=== PATIENT | male | born 1945 | race Caucasian/White ===

== ENCOUNTER 2020-09-12 01:07 | Outpatient (CLI) | payer MEDICARE, SELFPAY ==
[2020-09-13 17:16] LABS: SARS-CoV-2 RNA PCR Negative
== END 2020-09-12 01:08 | disposition home or self-care (01) ==
LOC: ANHCOVIDDT 01:07
PROVIDERS: PCP Family Medicine; Visit Provider Internal Medicine Gastroenterology
DX: Z01.812 Encounter for preprocedural laboratory examination (principal); Z20.822 Contact with and (suspected) exposure to COVID-19
CPT/HCPCS: C9803; U0003; U0005

== ENCOUNTER 2020-09-15 01:22 | Day surgery (SDC) | payer MEDICARE, SELFPAY ==
[2020-09-08 09:54] VITALS: BMI 26.5
[2020-09-15 06:24] VITALS: BP 128/68; PULSE 87; RESP 16; TEMP 36.9; O2SAT 98; BMI 25.3
[2020-09-15] MEDS: LACTATED RINGERS 1,000 ML 150 ML IV CONT (06:43)
--- NOTE | 2020-09-15 07:16 | WPDANESEPPF ---
Anes - Initial Pre Proc Eval Procedure: Operation Date: 09/15/20 07:30 Proposed Procedures p Screening Colonoscopy - Billy Pimentel MD Date/Time: 09/15/20 07:16 Surgeon: Billy Pimentel MD Pre Op Diagnosis: Personal Hx. Of Polyps, Family Hx. Of Colon CA Patient Data Age: 74 Gender: M Height: 1.78 m Weight: 80.2 kg Last Vital Signs Temp 36.9 C 09/15/20 06:24 Pulse 87 09/15/20 06:24 Resp 16 09/15/20 06:24 BP 128/68 09/15/20 06:24 Pulse Ox 98 09/15/20 06:24 Allergies Allergy/AdvReac Type Severity Reaction Status Date / Time hydrocodone Allergy Unknown Confusion Verified 09/15/20 06:22 meperidine Allergy Unknown Nausea Verified 09/15/20 06:22 promethazine Allergy Unknown Confusion Verified 09/15/20 06:22 Bumble Bee Allergy Severe SEVERE Uncoded 09/15/20 06:22 SWELLING Home Medications Medication Instructions Recorded Confirmed Type aspirin 81 mg tablet,delayed 81 mg PO DAILY 08/12/19 09/08/20 History release lamotrigine 200 mg tablet 200 mg PO DAILY 08/12/19 09/08/20 History polyethylene glycol 3350 17 gram 17 gm PO DAILY 08/12/19 09/08/20 History oral powder packet psyllium husk 0.52 gram capsule 0.52 gm PO DAILY 08/12/19 09/08/20 History ropinirole 0.5 mg tablet 1 mg PO DAILY tablet 02/24/20 09/08/20 History simvastatin 40 mg tablet 40 mg PO DAILY #90 tablet 02/27/20 09/08/20 Rx hydrochlorothiazide 25 mg tablet 25 mg PO DAILY #90 tablet 05/01/20 09/08/20 Rx bupropion HCl 300 mg 24 hr tablet, 150 mg PO QAM tablet 08/31/20 09/08/20 History extended release buspirone 7.5 mg tablet 10 mg PO TID tablet 08/31/20 09/08/20 History carbidopa 25 mg-levodopa 100 mg 1 tablet PO .qhs tablet 08/31/20 09/08/20 History tablet escitalopram oxalate 5 mg tablet 5 mg PO DAILY 08/31/20 09/08/20 History mecobalamin (vitamin B12) 1,000 1,000 mcg PO DAILY 08/31/20 09/08/20 History mcg chewable tablet montelukast 10 mg tablet 10 mg PO DAILY #90 tablet 09/08/20 Rx sodium,potassium,mag sulfates See Rx Instructions .ROUTE 09/08/20 Rx [Suprep Bowel Prep Kit] .COMPLEX #1 ml Patient hx anesthesia problems: none Family hx anesthesia problems: none PMFSH Past Medical History Medical History (Updated 09/10/19 @ 07:36 by Valente Lopez MD) Arthritis of left shoulder region Chronic neck pain Family history of colon cancer SAE (generalized anxiety disorder) History of anemia History of colon polyps HLD (hyperlipidemia) HTN (hypertension), benign Major depression, recurrent, chronic Family History Family History (System 08/27/19 @ 16:53 by Romelia Munoz) Sibling Diabetes mellitus Family history of suicide Hypertension Family history of Parkinson's disease Family history of coronary artery disease Mother Hypertension Carcinoma of colon Family history of malignant neoplasm of uterus Family history of heart disease in male family member before age 55 Patient's mother is Father Malignant neoplasm of prostate Other Family history of malignant neoplasm Social History Social History Smoking packs per day: 1 Smoking cigarettes per day: 20.0 Years smoked: 9 Smoking pack-years: 9.00 Smoking status: Former smoker Tobacco type: cigarettes Second hand tobacco smoke exposure: No Smoking end date: 08/21/70 Alcohol intake: never Substance use: never Substance use type: does not use Living arrangements: with family Gender identity (if verbalized by the patient): Male Spiritual care concerns: No Anes - Eval Final PreProcedure Day of Procedure 09/15/20 07:16 Patient weight: overweight Heart: regular rate and rhythm Lungs: clear to auscultation and normal air movement Airway: Mallampati scale class II Neurological: alert and oriented Last oral intake: >/= 8 hours ASA classification: II Emergent: no Anesthetic plan: proceed Anesthesia type and monitoring
--- NOTE | 2020-09-15 07:47 | WPDGICN ---
Assessment and Plan Assessment and plan (1) Family history of colon cancer: Code(s): Z80.0 - Family history of malignant neoplasm of digestive organs Status: Acute Assessment and Plan: Patient's mother has had colon cancer. Therefore surveillance colonoscopy at 5 year intervals is indicated. (2) History of colon polyps: Code(s): Z86.010 - Personal history of colonic polyps Status: Acute Assessment and Plan: Patient has had colon polyps on previous exams most recently 2013. Plan is for surveillance colonoscopy now and at 5 year intervals in the future. GI Consult Note Consult date/time: 09/15/20 07:47 HPI: Geovanny Cuevas is a 74 year old male Seen in evaluation at the request of Dr. Valente Lopez. patient presents for surveillance colonoscopy. Patient has a history of colon polyps in the past. Most recent colonoscopy was 2013. Under the direction Dr. Wynne. Patient's family history is significant that his mother had colon cancer. Patient states that his current weight appetite bowel movements are normal. He denies abdominal pain. He has had no bleeding. His weight remains stable. Past medical history is significant for left shoulder replacement he has had bilateral knee replacement has had spinal fusion. Review of Systems Review of Systems: All systems reviewed & are unremarkable except as noted in HPI and below PMFSH Past Medical History Medical History (Updated 09/15/20 @ 07:49 by Billy Pimentel MD) Arthritis of left shoulder region Chronic neck pain Family history of colon cancer SAE (generalized anxiety disorder) History of anemia History of colon polyps HLD (hyperlipidemia) HTN (hypertension), benign Major depression, recurrent, chronic Family History Family History (System 08/27/19 @ 16:53 by Romelia Munoz) Sibling Diabetes mellitus Family history of suicide Hypertension Family history of Parkinson's disease Family history of coronary artery disease Mother Hypertension Carcinoma of colon Family history of malignant neoplasm of uterus Family history of heart disease in male family member before age 55 Patient's mother is Father Malignant neoplasm of prostate Other Family history of malignant neoplasm Social History Social History Smoking packs per day: 1 Smoking cigarettes per day: 20.0 Years smoked: 9 Smoking pack-years: 9.00 Smoking status: Former smoker Tobacco type: cigarettes Second hand tobacco smoke exposure: No Smoking end date: 08/21/70 Alcohol intake: never Substance use: never Substance use type: does not use Living arrangements: with family Gender identity (if verbalized by the patient): Male Spiritual care concerns: No Meds Home Medications and Allergies Home Medications Medication Instructions Recorded Confirmed Type aspirin 81 mg tablet,delayed 81 mg PO DAILY 08/12/19 09/08/20 History release lamotrigine 200 mg tablet 200 mg PO DAILY 08/12/19 09/08/20 History polyethylene glycol 3350 17 gram 17 gm PO DAILY 08/12/19 09/08/20 History oral powder packet psyllium husk 0.52 gram capsule 0.52 gm PO DAILY 08/12/19 09/08/20 History ropinirole 0.5 mg tablet 1 mg PO DAILY tablet 02/24/20 09/08/20 History simvastatin 40 mg tablet 40 mg PO DAILY #90 tablet 02/27/20 09/08/20 Rx hydrochlorothiazide 25 mg tablet 25 mg PO DAILY #90 tablet 05/01/20 09/08/20 Rx bupropion HCl 300 mg 24 hr tablet, 150 mg PO QAM tablet 08/31/20 09/08/20 History extended release buspirone 7.5 mg tablet 10 mg PO TID tablet 08/31/20 09/08/20 History carbidopa 25 mg-levodopa 100 mg 1 tablet PO .qhs tablet 08/31/20 09/08/20 History tablet escitalopram oxalate 5 mg tablet 5 mg PO DAILY 08/31/20 09/08/20 History mecobalamin (vitamin B12) 1,000 1,000 mcg PO DAILY 08/31/20 09/08/20 History mcg chewable tablet montelukast
[2020-09-15 07:50] VITALS: BP 113/69; PULSE 65; RESP 16; O2SAT 96
[2020-09-15 08:00] VITALS: BP 136/58; PULSE 60; RESP 16; O2SAT 97
[2020-09-15 08:09] VITALS: BP 125/63; PULSE 67; RESP 16; O2SAT 98
== END 2020-09-15 08:26 | disposition home or self-care (01) ==
PROVIDERS: PCP Family Medicine; Visit Provider Internal Medicine Gastroenterology
PROC: 0DJD8ZZ Inspection of Lower Intestinal Tract, Via Natural or Artificial Opening Endoscopic (ICD-10-PCS; CPT 45378; principal; 2020-09-15 07:30)
DX: Z12.11 Encounter for screening for malignant neoplasm of colon (principal); K57.30 Diverticulosis of large intestine without perforation or abscess without bleeding; K64.8 Other hemorrhoids; Z98.0 Intestinal bypass and anastomosis status; Z86.010 Personal history of colon polyps; Z80.0 Family history of malignant neoplasm of digestive organs; I10 Essential (primary) hypertension; E78.5 Hyperlipidemia, unspecified; F41.1 Generalized anxiety disorder; F32.9 Major depressive disorder, single episode, unspecified; Z87.891 Personal history of nicotine dependence; Z79.82 Long term (current) use of aspirin
CPT/HCPCS: G0105; J2704; J7120

== ENCOUNTER 2020-12-26 08:25 | Emergency (ER) | payer MEDICARE, SELFPAY ==
[2020-12-26 08:33] VITALS: BP 134/62; PULSE 67; RESP 12; TEMP 36.7; O2SAT 100
--- NOTE | 2020-12-26 08:46 | ED.SKABFB ---
HPI - Skin/Abscess/Foreign Bdy General Chief complaint: Skin/Abscess/Foreign Body Stated complaint: RASH Source: patient Mode of arrival: ambulatory Limitations: no limitations History of Present Illness HPI narrative: 75-year-old male presents to [facility] with complaints of painful erythematous rash to his right hip wrapping around to his right buttock for the past 3 days. Patient reports that he has been applying [id number] hydrocortisone cream with no relief. Patient complains of moderate pain and mild itching to area of rash. Patient denies fever, body aches, chills, nausea, vomiting or diarrhea. MD complaint: rash Onset (ago): day(s) (3) Location: RLE Quality: aching and constant Pain Consistency: constant Relieving factors: none Exacerbating factors: none Context: none Associated symptoms: denies other symptoms Treatments prior to arrival: OTC topical medication Related Data Home Medications Medication Instructions Recorded Confirmed aspirin 81 mg tablet,delayed 81 mg PO DAILY 08/12/19 12/26/20 release lamotrigine 200 mg tablet 200 mg PO DAILY 08/12/19 12/26/20 polyethylene glycol 3350 17 gram 17 gm PO DAILY 08/12/19 12/26/20 oral powder packet psyllium husk 0.52 gram capsule 0.52 gm PO DAILY 08/12/19 12/26/20 ropinirole 0.5 mg tablet 1 mg PO DAILY tablet 02/24/20 12/26/20 bupropion HCl 300 mg 24 hr tablet, 150 mg PO QAM tablet 08/31/20 12/26/20 extended release buspirone 7.5 mg tablet 10 mg PO TID tablet 08/31/20 12/26/20 escitalopram oxalate 5 mg tablet 5 mg PO DAILY 08/31/20 12/26/20 mecobalamin (vitamin B12) 1,000 1,000 mcg PO DAILY 08/31/20 12/26/20 mcg chewable tablet acetaminophen [Acetaminophen Extra 1,000 mg PO Q6H PRN 12/26/20 12/26/20 Strength] ascorbate calcium (vitamin C) 1,000 mg PO DAILY 12/26/20 12/26/20 cholecalciferol (vitamin D3) 25 mcg PO DAILY 12/26/20 12/26/20 [Vitamin D3] Allergies Allergy/AdvReac Type Severity Reaction Status Date / Time hydrocodone Allergy Unknown Confusion Verified 12/26/20 08:31 meperidine Allergy Unknown Nausea Verified 12/26/20 08:31 promethazine Allergy Unknown Confusion Verified 12/26/20 08:31 Bumble Bee Allergy Severe SEVERE Uncoded 09/15/20 06:22 SWELLING Review of Systems Constitutional: Constitutional: Denies chills, Denies fatigue, Denies fever(s) and Denies weakness ENT: Denies dysphagia, Denies dizziness, Denies nasal congestion and Denies sore throat Cardiovascular: Cardiovascular: Denies chest pain Respiratory: Respiratory: Denies cough, Denies dyspnea and Denies wheezing Gastrointestinal: Gastrointestinal: Denies abdominal pain, Denies diarrhea, Denies nausea and Denies vomiting Integumentary/Breasts: Skin/Breast: Reports rash Neurologic: Denies dizziness PMFSH Past Medical History Medical History Arthritis of left shoulder region Chronic neck pain Family history of colon cancer SAE (generalized anxiety disorder) History of anemia History of colon polyps HLD (hyperlipidemia) HTN (hypertension), benign Major depression, recurrent, chronic Family History Family History Sibling Diabetes mellitus Family history of suicide Hypertension Family history of Parkinson's disease Family history of coronary artery disease Mother Hypertension Carcinoma of colon Family history of malignant neoplasm of uterus Family history of heart disease in male family member before age 55 Patient's mother is Father Malignant neoplasm of prostate Other Family history of malignant neoplasm Social History Social History Smoking packs per day: 1 Smoking cigarettes per day: 20.0 Years smoked: 9 Smoking pack-years: 9.00 Smoking status: Former smoker Tobacco type: cigarettes Second hand tobacco smoke exposure: No Smoking en
== END 2020-12-26 09:00 | disposition home or self-care (01) ==
PROVIDERS: Emergency Provider Nurse Practitioner Family; PCP Family Medicine
DX: B02.7 Disseminated zoster (principal); Z87.891 Personal history of nicotine dependence; M19.012 Primary osteoarthritis, left shoulder; E78.5 Hyperlipidemia, unspecified; I10 Essential (primary) hypertension; F41.9 Anxiety disorder, unspecified; F33.9 Major depressive disorder, recurrent, unspecified
CPT/HCPCS: 99213; G0463

== ENCOUNTER 2021-07-21 11:37 | Outpatient (CLI) | payer MEDICARE, SELFPAY ==
--- NOTE | ~2021-07-21 | XR_ITS ---
EXAMINATION: XR hand LT 2V DATE: 07/21/2021 12:02 INDICATION: Left hand pain. TECHNIQUE: 2 views of left hand were obtained. COMPARISON: Left wrist radiographs 03/31/2018 FINDINGS: Bone alignment is normal. No fracture. There is moderate osteoarthritis of triscaphe joint and severe osteoarthritis of first carpometacarpal joint with loose body. There is mild osteoarthriti s of most of the metacarpophalangeal joints and interphalangeal joints. There is severe osteoarthriti s of first interphalangeal joint and moderate osteoarthritis of second and third distal interphalange al joints. IMPRESSION: 1. Polyarticular osteoarthritis. Reviewed, dictated and finalized at location A. Y ROOM SUPERVISOR
== END 2021-07-21 11:38 | disposition home or self-care (01) ==
LOC: ANHIMG 11:42
PROVIDERS: PCP Family Medicine; Visit Provider Nurse Practitioner Family
DX: M19.042 Primary osteoarthritis, left hand (principal)
CPT/HCPCS: 73120

== ENCOUNTER 2021-08-19 11:31 | Outpatient (CLI) | payer MEDICARE, SELFPAY ==
--- NOTE | ~2021-08-19 | XR_ITS ---
EXAMINATION: XR chest 2V DATE: 08/19/2021 11:57 INDICATION: Cough. Congestion. TECHNIQUE: Frontal and lateral views of the chest were obtained. COMPARISON: Chest single view 06/11/2019 FINDINGS: There are mild airspace opacities in the lower lung zones. No pleural effusion or pneumotho rax. The heart size is normal. Electrodes overlie thoracic spine. Surgical clips in the right upper q uadrant are likely from cholecystectomy. There is a left shoulder arthroplasty. IMPRESSION: 1. Mild airspace opacities in the lower lung zones, consistent with atelectasis versus pneumonia. Reviewed, dictated and finalized at location B. Y LEVEL [employer]RAFTER
== END 2021-08-19 11:32 | disposition home or self-care (01) ==
LOC: ANHIMG 11:36
PROVIDERS: PCP Family Medicine; Visit Provider Nurse Practitioner Family
DX: R05.9 Cough, unspecified (principal); R91.8 Other nonspecific abnormal finding of lung field
CPT/HCPCS: 71046

== ENCOUNTER → 2021-08-20 01:14 | Outpatient (CLI) | payer MEDICARE, SELFPAY ==
[2021-08-21 16:52] LABS: SARS-CoV-2 RNA PCR Negative
== END ==
PROVIDERS: PCP Family Medicine; Visit Provider Nurse Practitioner Family
DX: R05.9 Cough, unspecified (principal); Z20.822 Contact with and (suspected) exposure to COVID-19
CPT/HCPCS: C9803; U0003; U0005

== ENCOUNTER 2021-12-07 21:50 | Emergency (ER) | payer MEDICARE, SELFPAY ==
--- NOTE | ~2021-12-07 | CT_ITS ---
EXAMINATION: CT abdomen pelvis w con EXAM DATE: 12/08/2021 02:10 INDICATION: Abd pain, r/o SBO. TECHNIQUE: Spiral CT of the abdomen and pelvis was performed following intravenous injection of 100 m L Omnipaque 350. Axial, coronal and sagittal images of the abdomen and pelvis were reviewed. The do se-length product (DLP) for this examination was 618.08 mGy-cm. The exposure was tailored according to patient size (auto mA exposure control), and iterative reconstruction (ASIR) was used as additiona l dose reduction technique. Comparison is made to prior examination from 12/09/2018. FINDINGS: Loops of mildly dilated ileum without discrete transition point, probably mild ileus. There is intact rectosigmoid anastomosis site. Trace free pelvic fluid, probably reactive. There is mild s igmoid colonic diverticulosis. There is no adjacent inflammatory change to suggest diverticulitis. The liver, spleen, adrenal glands and pancreas are unremarkable. There are cholecystectomy clips. P ortal and splenic veins are patent. Kidneys enhance symmetrically. There is no hydronephrosis. Large st is in the right kidney measuring 7.7 cm. The prostate is unremarkable. The bladder is unremarkabl e. There is no retroperitoneal or pelvic lymphadenopathy. There is mild to moderate scattered cecy riosclerotic disease. The heart is normal in size. There are no pericardial or pleural effusions. The lung bases are unremarkable. There are no osteoblastic or osteolytic lesions identified. Lumbar fusion hardware L3-S1. Spine stimulator device. IMPRESSION: 1. Mildly dilated ileal loops without transition point, probably ileus. 2. Mild sigmoid diverticulosis. Reviewed, dictated and finalized at location A.
[2021-12-07 22:24] VITALS: BP 126/55; PULSE 65; RESP 20; TEMP 36.6; O2SAT 99
[2021-12-07 22:37] LABS: Basophils Absolute Auto 0.1 K/mm3 (0.0-0.1); Basophils Percent Auto 0.7 % (0.2-1.2); Eosinophils Absolute Auto 0.1 K/mm3 (0-0.3); Eosinophils Percent Auto 1.3 % (0-4.4); Hematocrit 42.1 % (42.0-52.0); Hemoglobin 13.5 g/dL (14.0-18.0); Immature Granulocyte Absolute 0.02 K/mm3 (0.00-0.031); Immature Granulocyte Percent A 0.3 % (0-0.5); Lymphocytes Absolute Auto 0.92 K/mm3 (0.9-3.2); Lymphocytes Percent Auto 12.1 % (18.3-44.2); Mean Corpuscular HGB Conc 32.1 g/dl (32-36); Mean Corpuscular Hemoglobin 32.2 pg (26-34); Mean Corpuscular Volume 100.5 fl (80-100); Mean Platelet Volume 9.6 fl (7.4-10.4); Monocytes Absolute Auto 0.7 K/mm3 (0.1-0.6); Monocytes Percent Auto 9.5 % (2.6-8.5); Neutrophils Absolute Auto 5.8 K/mm3 (1.3-6.7); Neutrophils Percent Auto 76.1 % (45.5-73.1); Platelet Count Result 266 k/mm3 (150-375); Red Blood Count 4.19 M/mm3 (4.6-6.20); Red Cell Distribution Width 13.1 % (11.5-14.5); White Blood Count 7.6 K/mm3 (4.5-10.0)
[2021-12-07 22:53] LABS: Albumin Level 4.4 g/dL (3.5-5.1); Alkaline Phosphatase 76 U/L (38-126); Anion Gap 6 mmol/L (8-16); Aspartate Amino Transferase 33 U/L (17-59); Bilirubin,Total 0.4 mg/dL (0.2-1.3); Blood Urea Nitrogen 20 mg/dL (9-20); Calcium 9.3 mg/dL (8.4-10.2); Carbon Dioxide 29 mmol/L (22-30); Chloride 103 mmol/L (98-107); Estimated CRCL calculation 47 ml/min; Estimated Glomerular Filt Rate 59; Glucose 105 mg/dL (65-110); Lipase 51 U/L (23-300); Potassium 4.1 mmol/L (3.4-5.0); Sodium 138 mmol/L (137-145)
[2021-12-07 23:09] LABS: Alanine Aminotransferase 4 U/L (4-50)
--- NOTE | 2021-12-08 01:03 | ED.ABDPAIN ---
HPI - Abdominal Pain General Chief Complaint: Abdominal Pain <Victoriano Bates APRN - Last Filed: 12/08/21 01:05> Stated Complaint: abd pain <Victoriano Bates APRN - Last Filed: 12/08/21 01:05> Time Seen by Provider: 12/08/21 00:58 <Victoriano Bates APRN - Last Filed: 12/08/21 01:05> History of Present Illness HPI narrative: 76-year-old male presents emergency room with acute onset of nausea vomiting and diarrhea that began this morning. Patient states his had similar symptoms 2 days ago. Patient denies fever. Patient has a history of umbilical and inguinal hernia repairs, partial colectomy, and small bowel obstruction. Patient reports lower abdominal pain, describes pain as cramping. <Victoriano Bates APRN - Last Filed: 12/08/21 01:05> Related Data Home Medications: Home Medications Medication Instructions Recorded Confirmed lamotrigine 200 mg tablet 200 mg PO DAILY 08/12/19 09/30/21 escitalopram oxalate 5 mg tablet 5 mg PO DAILY 08/31/20 09/30/21 mecobalamin (vitamin B12) 1,000 1,000 mcg PO DAILY 08/31/20 09/30/21 mcg chewable tablet acetaminophen [Acetaminophen Extra 1,000 mg PO Q6H PRN 12/26/20 09/30/21 Strength] ascorbate calcium (vitamin C) 1,000 mg PO DAILY 12/26/20 09/30/21 cholecalciferol (vitamin D3) 25 mcg PO DAILY 12/26/20 09/30/21 [Vitamin D3] Lactobacills gasseri-Bifidobac 1 cap PO QAM cap 09/30/21 09/30/21 bifidum,longum 1.5 billion cell capsule acetaminophen 500 mg tablet 500 mg PO Q6H PRN 09/30/21 09/30/21 ascorbic acid (vitamin C) 1,000 mg 1 g PO DAILY 09/30/21 09/30/21 tablet bupropion HCl 150 mg 24 hr tablet, 150 mg PO QAM 09/30/21 09/30/21 extended release buspirone 10 mg tablet 10 mg PO TID 09/30/21 09/30/21 montelukast 10 mg tablet 10 mg PO QHS 09/30/21 09/30/21 ropinirole 0.5 mg tablet 0.5 mg PO BID 09/30/21 09/30/21 <Victoriano Bates APRN - Last Filed: 12/08/21 01:05> Allergies/Adverse Reactions: Allergies Allergy/AdvReac Type Severity Reaction Status Date / Time hydrocodone Allergy Unknown Confusion Verified 09/30/21 14:19 meperidine Allergy Unknown Nausea Verified 09/30/21 14:19 promethazine Allergy Unknown Confusion Verified 09/30/21 14:19 Bumble Bee Allergy Severe SEVERE Uncoded 09/30/21 14:19 SWELLING <Victoriano Bates APRN - Last Filed: 12/08/21 01:05> Review of Systems Review of Systems: CONSTITUTIONAL: Denies fever, chills, or sweats. EYES: Denies visual changes, redness, or discharge. ENT: Denies rhinorrhea, congestion, sore throat, or otalgia. CARDIOVASCULAR: Denies chest pain, palpitations, or edema. RESPIRATORY: Denies cough or dyspnea. GASTROINTESTINAL: Reports abdominal pain, nausea vomiting, and diarrhea GENITOURINARY: Denies dysuria or hematuria. SKIN: Denies rash or itching. MUSCULOSKELETAL: Denies back pain, joint pain, or myalgia. NEUROLOGIC: Denies headache, numbness, dizziness, or weakness. PSYCHIATRIC: Denies anxiety or depression. <Victoriano Bates APRN - Last Filed: 12/08/21 01:05> [facility] Past Medical History Medical History: Medical History Arthritis of left shoulder region Chronic neck pain Family history of colon cancer SAE (generalized anxiety disorder) History of anemia History of colon polyps HLD (hyperlipidemia) HTN (hypertension), benign Major depression, recurrent, chronic <Victoriano Bates APRN - Last Filed: 12/08/21 01:05> Surgical History Surgical History: Surgical History H/O cataract extraction <Victoriano Bates APRN - Last Filed: 12/08/21 01:05> Family History Family History: Family History Sibling Diabetes mellitus Family history of suicide Hypertension Family history of Parkinson's disease Family history of coronary artery disease Mother Hypertension Carcinoma of colon
[2021-12-08 01:48] VITALS: BP 157/71; PULSE 65; RESP 14; O2SAT 100
[2021-12-08] MEDS: SODIUM CHLORIDE 0.9% IV 1,000 ML 999 ML IV CONT (02:49)
[2021-12-08] MEDS: ONDANSETRON INJ 4 MG/2 ML VIAL IV PUSH (02:50)
[2021-12-08 03:51] LABS: Appearance Urine Clear (Clear); Bilirubin Urine Negative (Negative); Blood Urine Negative (Negative); Color Urine Yellow (Yellow); Glucose Urine UA Negative (Negative); Ketones Urine 2+ mg/dL (Negative); Leukocyte Esterase Ur Negative LEU/UL (Negative); Nitrate Urine Negative (Negative); Protein Urine Negative (Negative); Urobilinogen Urine 0.2 mg/dL (<2.0); pH Urine 5.5 (5.0-9.0)
[2021-12-08 04:01] LABS: Bacteria Urine Trace /hpf; Mucus Urine Moderate /lpf; Squamous Epithelial Cell Urine Rare /hpf (Few)
[2021-12-08 04:09] LABS: Add Urine Microscopic? YES
[2021-12-08 05:13] VITALS: BP 157/71; PULSE 59; RESP 18; O2SAT 96
== END 2021-12-08 05:15 | disposition home or self-care (01) ==
PROVIDERS: Emergency Medicine; Emergency Provider Nurse Practitioner Family; PCP Family Medicine
DX: R19.7 Diarrhea, unspecified (principal); R10.84 Generalized abdominal pain; E78.5 Hyperlipidemia, unspecified; I10 Essential (primary) hypertension; M19.012 Primary osteoarthritis, left shoulder; F41.1 Generalized anxiety disorder; F33.9 Major depressive disorder, recurrent, unspecified; Z86.010 Personal history of colon polyps; Z98.49 Cataract extraction status, unspecified eye; Z87.891 Personal history of nicotine dependence; K57.30 Diverticulosis of large intestine without perforation or abscess without bleeding; Z90.49 Acquired absence of other specified parts of digestive tract
CPT/HCPCS: 36415; 74177; 80053; 81001; 83690; 85025; 96361; 96374; 99284; J2405; J7030; Q9967

== ENCOUNTER 2022-03-06 18:16 | Emergency (ER) | payer MEDICARE, SELFPAY ==
--- NOTE | ~2022-03-06 | XR_ITS ---
EXAM: XR ribs LT 2V w CXR 2V DATE: 03/06/2022 19:03 HISTORY: FALL X TODAY. LATERAL LEFT MID/LOWER RIB PAIN . COMPARISON: None available. FINDINGS: Decreased mineralization. No fracture or dislocation. No lytic or blastic lesion. Degenera tive changes in the spine. Incompletely visualized right shoulder arthroplasty. Cholecystectomy clips . Left lower back stimulator, leads terminate over the lower thoracic spine. Lumbar fusion. IMPRESSION: No acute osseous finding in the left ribs. Reviewed, dictated and finalized at location K.
[2022-03-06 18:28] VITALS: BP 146/76; PULSE 74; RESP 16; TEMP 36.3; O2SAT 98
--- NOTE | 2022-03-06 20:32 | ED.FALL ---
HPI - Fall General Chief Complaint: Fall Stated Complaint: fall, L sided rib pain Time Seen by Provider: 03/06/22 20:13 History of Present Illness HPI Narrative: 76-year-old male here for evaluation of left-sided abdominal and rib pain after a fall. Patient states that he was walking into his kitchen when he excellently slipped, and struck the left side of his thorax on the countertop on the way down. States that he did not fall, he did not hit his head, he did not lose consciousness., Ever since the incident he has been complaining of severe left-sided pain, worse with deep breaths and with certain positions. He has not attempted any medication for his symptoms. Denies chest pain, nausea, vomiting. Related Data Home Medications Medication Instructions Recorded Confirmed lamotrigine 200 mg tablet 200 mg PO DAILY 08/12/19 12/09/21 escitalopram oxalate 5 mg tablet 5 mg PO DAILY 08/31/20 12/09/21 mecobalamin (vitamin B12) 1,000 1,000 mcg PO DAILY 08/31/20 12/09/21 mcg chewable tablet acetaminophen 500 mg tablet 1,000 mg PO Q6H PRN Pain 12/26/20 12/09/21 (Acetaminophen Extra Strength) ascorbate calcium (vitamin C) 500 1,000 mg PO DAILY 12/26/20 12/09/21 mg tablet cholecalciferol (vitamin D3) 25 25 mcg PO DAILY 12/26/20 12/09/21 mcg (1,000 unit) chewable tablet (Vitamin D3) Lactobacills gasseri-Bifidobac 1 cap PO QAM 09/30/21 12/09/21 bifidum,longum 1.5 billion cell capsule (DAVIDsTEA) acetaminophen 500 mg tablet 500 mg PO Q6H PRN 09/30/21 12/09/21 (Tylenol Extra Strength) ascorbic acid (vitamin C) 1,000 mg 1 g PO DAILY 09/30/21 12/09/21 tablet bupropion HCl 150 mg 24 hr tablet, 150 mg PO QAM 09/30/21 12/09/21 extended release buspirone 10 mg tablet 10 mg PO TID 09/30/21 12/09/21 montelukast 10 mg tablet 10 mg PO QHS 09/30/21 12/09/21 ropinirole 0.5 mg tablet 0.5 mg PO BID 09/30/21 12/09/21 Allergies Allergy/AdvReac Type Severity Reaction Status Date / Time hydrocodone Allergy Unknown Confusion Verified 12/09/21 13:01 meperidine Allergy Unknown Nausea Verified 12/09/21 13:01 promethazine Allergy Unknown Confusion Verified 12/09/21 13:01 Bumble Bee Allergy Severe SEVERE Uncoded 12/09/21 13:01 SWELLING Review of Systems Review of Systems: Gen.: Denies fevers or chills Eyes: Denies eye pain or visual change ENT: Denies congestion Respiratory: Denies shortness of breath or cough CV: Denies chest pain or palpitations GI: Reports left-sided abdominal pain. denies nausea, emesis or diarrhea : denies burning, urgency, frequency or hematuria Musculoskeletal: Reports left-sided rib pain Neuro: Denies numbness, tingling, weakness or focal weakness Skin: Denies rash Except as documented, all other systems reviewed and negative PMFSH Past Medical History Medical History Arthritis of left shoulder region Chronic neck pain Family history of colon cancer SAE (generalized anxiety disorder) History of anemia History of colon polyps HLD (hyperlipidemia) HTN (hypertension), benign Major depression, recurrent, chronic Surgical History Surgical History H/O cataract extraction Family History Family History Sibling Diabetes mellitus Family history of suicide Hypertension Family history of Parkinson's disease Family history of coronary artery disease Mother Hypertension Carcinoma of colon Family history of malignant neoplasm of uterus Family history of heart disease in male family member before age 55 Patient's mother is Father Malignant neoplasm of prostate Other Family history of malignant neoplasm Social History Social History Smoking packs per day: 1 Smoking cigarettes per day: 20.0 Years smoked: 9 Smoking pack-years: 9
[2022-03-06] MEDS: methocarbamoL 500 MG TABLET PO (20:43)
[2022-03-06] MEDS: LIDOCAINE 5% PATCH 1 PATCH TRANSDERM (21:46)
[2022-03-06 22:18] LABS: Basophils Absolute Auto 0.1 K/mm3 (0.0-0.1); Basophils Percent Auto 1.2 % (0.2-1.2); Eosinophils Absolute Auto 0.2 K/mm3 (0-0.3); Eosinophils Percent Auto 2.5 % (0-4.4); Hematocrit 40.6 % (42.0-52.0); Hemoglobin 13.3 g/dL (14.0-18.0); Immature Granulocyte Absolute 0.02 K/mm3 (0.00-0.031); Immature Granulocyte Percent A 0.3 % (0-0.5); Lymphocytes Absolute Auto 0.95 K/mm3 (0.9-3.2); Lymphocytes Percent Auto 14.6 % (18.3-44.2); Mean Corpuscular HGB Conc 32.8 g/dl (32-36); Mean Corpuscular Hemoglobin 32.3 pg (26-34); Mean Corpuscular Volume 98.5 fl (80-100); Mean Platelet Volume 10.4 fl (7.4-10.4); Monocytes Absolute Auto 0.7 K/mm3 (0.1-0.6); Monocytes Percent Auto 10.2 % (2.6-8.5); Neutrophils Absolute Auto 4.6 K/mm3 (1.3-6.7); Neutrophils Percent Auto 71.2 % (45.5-73.1); Platelet Count Result 289 k/mm3 (150-375); Red Blood Count 4.12 M/mm3 (4.6-6.20); Red Cell Distribution Width 13.4 % (11.5-14.5); White Blood Count 6.5 K/mm3 (4.5-10.0)
[2022-03-06 22:43] VITALS: BP 133/57; PULSE 52; RESP 16; TEMP 36.9; O2SAT 96
== END 2022-03-06 22:57 | disposition left against medical advice (07) ==
LOC: ANHED 20:35
PROVIDERS: Physician Assistant; Emergency Provider Emergency Medicine; PCP Family Medicine
DX: S29.9XXA Unspecified injury of thorax, initial encounter (principal); E78.5 Hyperlipidemia, unspecified; I10 Essential (primary) hypertension; M19.012 Primary osteoarthritis, left shoulder; Z86.2 Personal history of diseases of the blood and blood-forming organs and certain disorders involving the immune mechanism; Z86.010 Personal history of colon polyps; Z98.49 Cataract extraction status, unspecified eye; Z87.891 Personal history of nicotine dependence; W01.0XXA Fall on same level from slipping, tripping and stumbling without subsequent striking against object, initial encounter
CPT/HCPCS: 36415; 71046; 71100; 85025; 99284; A9270

== ENCOUNTER 2022-05-24 03:26 | Emergency (ER) | payer MEDICARE, SELFPAY ==
--- NOTE | ~2022-05-24 | CT_ITS ---
EXAMINATION: CT abdomen pelvis w con DATE: 05/24/2022 04:49 INDICATION: Generalized abdominal pain. TECHNIQUE: Computed tomography (CT) of the abdomen and pelvis was performed with 100 mL Omnipaque 350 intravenous contrast. Automated exposure control and iterative reconstruction technique were employe d. The dose-length product was 583.07 mGy-cm. COMPARISON: CT abdomen and pelvis 12/08/2021 FINDINGS: The visualized portions of the lung bases demonstrate mild atelectasis. No pleural effusion . The heart size is normal. There are coronary artery calcifications. No pericardial effusion. The li trent is normal. There are changes of cholecystectomy. The spleen, pancreas, and adrenal glands are nor mal. There are cysts in the kidneys measuring up to 7.7 cm on the right. There is an anastomosis in t he sigmoid colon. There is diverticulosis of the colon without evidence of diverticulitis. There is a widemouthed supraumbilical ventral hernia containing a wall of nonobstructed small bowel. There is m ildly dilated small bowel in right abdomen. There are no pathologically enlarged lymph nodes. There i s no free intraperitoneal fluid. There is severe lumbar spondylosis. There are changes of posterior f usion procedure from L3 to S1. There is severe thoracic spondylosis. Epidural electrodes are noted. IMPRESSION: 1. Mildly dilated loops of small bowel in right abdomen, consistent with adynamic ileus. 2. Supraumbilical ventral hernia containing nonobstructed small bowel. Reviewed, dictated and finalized at location A. IMPRESSION: 1. Mildly dilated loops of small bowel in right abdomen, consistent with adynam ic ileus. 2. Supraumbilical ventral hernia containing nonobstructed small bowel.
[2022-05-24 03:34] VITALS: PULSE 73; RESP 20; TEMP 36.6; O2SAT 100
[2022-05-24 03:40] VITALS: BP 192/74
[2022-05-24 03:47] LABS: Basophils Absolute Auto 0.1 K/mm3 (0.0-0.1); Eosinophils Absolute Auto 0.2 K/mm3 (0-0.3); Eosinophils Percent Auto 2.8 % (0-4.4); Hematocrit 42.8 % (42.0-52.0); Hemoglobin 14.5 g/dL (14.0-18.0); Immature Granulocyte Absolute 0.01 K/mm3 (0.00-0.031); Immature Granulocyte Percent A 0.2 % (0-0.5); Lymphocytes Absolute Auto 1.13 K/mm3 (0.9-3.2); Lymphocytes Percent Auto 18.9 % (18.3-44.2); Mean Corpuscular HGB Conc 33.9 g/dl (32-36); Mean Corpuscular Hemoglobin 33.2 pg (26-34); Mean Corpuscular Volume 97.9 fl (80-100); Mean Platelet Volume 9.5 fl (7.4-10.4); Monocytes Absolute Auto 0.7 K/mm3 (0.1-0.6); Neutrophils Absolute Auto 3.9 K/mm3 (1.3-6.7); Neutrophils Percent Auto 65.1 % (45.5-73.1); Platelet Count Result 282 k/mm3 (150-375); Red Blood Count 4.37 M/mm3 (4.6-6.20)
--- NOTE | 2022-05-24 03:57 | ED.GENADULT ---
HPI - General Adult General Chief complaint: Abdominal Pain Stated complaint: abd pain x 2 hours Time Seen by Provider: 05/24/22 03:31 History of Present Illness HPI narrative: 76-year-old male presented the emergency department for evaluation of lower abdominal pain. Patient states that the pain started approximate 2 hours ago. Patient denies any associated nausea or vomiting. Patient states that he did have diarrhea yesterday. Patient reports he has had history of multiple hernia repairs and a cholecystectomy. Patient denies any associated chest pain or shortness of breath. Related Data Home Medications Medication Instructions Recorded Confirmed lamotrigine 200 mg tablet 200 mg PO DAILY 08/12/19 04/18/22 escitalopram oxalate 5 mg tablet 5 mg PO DAILY 08/31/20 04/18/22 mecobalamin (vitamin B12) 1,000 1,000 mcg PO DAILY 08/31/20 04/18/22 mcg chewable tablet acetaminophen 500 mg tablet 1,000 mg PO Q6H PRN Pain 12/26/20 04/18/22 (Acetaminophen Extra Strength) ascorbate calcium (vitamin C) 500 1,000 mg PO DAILY 12/26/20 04/18/22 mg tablet cholecalciferol (vitamin D3) 25 25 mcg PO DAILY 12/26/20 04/18/22 mcg (1,000 unit) chewable tablet (Vitamin D3) Lactobacills gasseri-Bifidobac 1 cap PO QAM 09/30/21 04/18/22 bifidum,longum 1.5 billion cell capsule (Kaiam) acetaminophen 500 mg tablet 500 mg PO Q6H PRN 09/30/21 04/18/22 (Tylenol Extra Strength) ascorbic acid (vitamin C) 1,000 mg 1 g PO DAILY 09/30/21 04/18/22 tablet bupropion HCl 150 mg 24 hr tablet, 150 mg PO QAM 09/30/21 04/18/22 extended release buspirone 10 mg tablet 10 mg PO TID 09/30/21 04/18/22 montelukast 10 mg tablet 10 mg PO QHS 09/30/21 04/18/22 ropinirole 0.5 mg tablet 0.5 mg PO BID 09/30/21 04/18/22 Allergies Allergy/AdvReac Type Severity Reaction Status Date / Time hydrocodone Allergy Unknown Confusion Verified 05/24/22 03:29 meperidine Allergy Unknown Nausea Verified 05/24/22 03:29 promethazine Allergy Unknown Confusion Verified 05/24/22 03:29 Bumble Bee Allergy Severe SEVERE Uncoded 05/24/22 03:29 SWELLING Review of Systems Review of Systems: CONSTITUTIONAL: Denies fever, chills, or sweats. EYES: Denies visual changes, redness, or discharge. ENT: Denies rhinorrhea, congestion, sore throat, or otalgia. CARDIOVASCULAR: Denies chest pain, palpitations, or edema. RESPIRATORY: Denies cough or dyspnea. GASTROINTESTINAL: See HPI GENITOURINARY: Denies dysuria or hematuria. SKIN: Denies rash or itching. MUSCULOSKELETAL: Denies back pain, joint pain, or myalgia. NEUROLOGIC: Denies headache, numbness, or weakness. [facility] Past Medical History Medical History Arthritis of left shoulder region Chronic neck pain Family history of colon cancer SAE (generalized anxiety disorder) History of anemia History of colon polyps HLD (hyperlipidemia) HTN (hypertension), benign IFG (impaired fasting glucose) Major depression, recurrent, chronic Surgical History Surgical History H/O cataract extraction Family History Family History Sibling Diabetes mellitus Family history of suicide Hypertension Family history of Parkinson's disease Family history of coronary artery disease Mother Hypertension Carcinoma of colon Family history of malignant neoplasm of uterus Family history of heart disease in male family member before age 55 Patient's mother is Father Malignant neoplasm of prostate Other Family history of malignant neoplasm Social History Social History (Updated 04/18/22 @ 13:38 by Lashonda Santoyo) Smoking packs per day: 1 Smoking cigarettes per day: 20.0 Years smoked: 9 Smoking pack-years: 9.00 Smoking status: Never smoker Tobacco type: cigarettes Second hand tobacco smoke exposure: No Smoking end da
[2022-05-24] MEDS: fentaNYL CITRATE INJ (*CRX) 100 MCG/2 ML VIAL 50 MCG IV PUSH ×2 (04:20→05:36)
[2022-05-24 04:23] LABS: Alanine Aminotransferase 9 U/L (6-50); Albumin Level 4.4 g/dL (3.5-5.1); Alkaline Phosphatase 95 U/L (38-126); Anion Gap 6 mmol/L (8-16); Aspartate Amino Transferase 30 U/L (17-59); Bilirubin,Total 0.4 mg/dL (0.2-1.3); Blood Urea Nitrogen 20 mg/dL (9-20); Calcium 9.7 mg/dL (8.4-10.2); Carbon Dioxide 29 mmol/L (22-30); Chloride 101 mmol/L (98-107); Estimated CRCL calculation 51 ml/min; Estimated Glomerular Filt Rate > 60; Glucose 112 mg/dL (65-110); Lipase 82 U/L (23-300); Sodium 136 mmol/L (137-145)
[2022-05-24 06:48] VITALS: BP 182/69; PULSE 88; RESP 18; O2SAT 98
== END 2022-05-24 07:00 | disposition home or self-care (01) ==
PROVIDERS: Emergency Provider Emergency Medicine; PCP Family Medicine
DX: R10.30 Lower abdominal pain, unspecified (principal); R19.7 Diarrhea, unspecified; I10 Essential (primary) hypertension; E78.5 Hyperlipidemia, unspecified; F33.9 Major depressive disorder, recurrent, unspecified; F41.1 Generalized anxiety disorder; Z87.891 Personal history of nicotine dependence
CPT/HCPCS: 36415; 74177; 80053; 83690; 85025; 96374; 96375; 99284; J3010; Q9967

== ENCOUNTER 2022-06-03 17:32 | Emergency (ER) | payer MEDICARE, SELFPAY ==
--- NOTE | 2022-06-03 17:36 | ED.MALEGU ---
HPI - Male Genitourinary General Chief complaint: Urogenital-Male Stated complaint: BLOOD IN URINE Time Seen by Provider: 06/03/22 17:40 Source: patient Mode of arrival: ambulatory Limitations: no limitations History of Present Illness HPI Narrative: Mr. Cuevsa is a 76-year-old male patient presenting to clinic today with complaints of possible urinary tract infection. He reports he noticed some blood in his urine this morning and has had pain last couple hours with urination. He denies any fever or chills. He denies any abdominal pain or flank pain. No history of any kidney disease Related Data Home Medications Medication Instructions Recorded Confirmed lamotrigine 200 mg tablet 200 mg PO DAILY 08/12/19 05/26/22 escitalopram oxalate 5 mg tablet 5 mg PO DAILY 08/31/20 05/26/22 mecobalamin (vitamin B12) 1,000 1,000 mcg PO DAILY 08/31/20 05/26/22 mcg chewable tablet acetaminophen 500 mg tablet 1,000 mg PO Q6H PRN Pain 12/26/20 05/26/22 (Acetaminophen Extra Strength) ascorbate calcium (vitamin C) 500 1,000 mg PO DAILY 12/26/20 05/26/22 mg tablet cholecalciferol (vitamin D3) 25 25 mcg PO DAILY 12/26/20 05/26/22 mcg (1,000 unit) chewable tablet (Vitamin D3) Lactobacills gasseri-Bifidobac 1 cap PO QAM 09/30/21 05/26/22 bifidum,longum 1.5 billion cell capsule ([employer]) acetaminophen 500 mg tablet 500 mg PO Q6H PRN 09/30/21 05/26/22 (Tylenol Extra Strength) ascorbic acid (vitamin C) 1,000 mg 1 g PO DAILY 09/30/21 05/26/22 tablet bupropion HCl 150 mg 24 hr tablet, 150 mg PO QAM 09/30/21 05/26/22 extended release buspirone 10 mg tablet 10 mg PO TID 09/30/21 05/26/22 montelukast 10 mg tablet 10 mg PO QHS 09/30/21 05/26/22 ropinirole 0.5 mg tablet 0.5 mg PO BID 09/30/21 05/26/22 Allergies Allergy/AdvReac Type Severity Reaction Status Date / Time hydrocodone Allergy Unknown Confusion Verified 06/03/22 17:52 meperidine Allergy Unknown Nausea Verified 06/03/22 17:52 promethazine Allergy Unknown Confusion Verified 06/03/22 17:52 Bumble Bee Allergy Severe SEVERE Uncoded 06/03/22 17:52 SWELLING Review of Systems Review of Systems: Pertinent positives per HPI. Patient denies any fever, chills, rash, headache, visual changes, dizziness, cough, runny nose, sore throat, shortness of breath, chest pain, palpitations, nausea, vomiting, diarrhea, constipation, abdominal pain.. [facility] Past Medical History Medical History Arthritis of left shoulder region Chronic neck pain Family history of colon cancer SAE (generalized anxiety disorder) History of anemia History of colon polyps HLD (hyperlipidemia) HTN (hypertension), benign IFG (impaired fasting glucose) Major depression, recurrent, chronic Surgical History Surgical History H/O cataract extraction H/O hernia repair History of back surgery History of bilateral knee replacement History of left shoulder replacement Hx of cholecystectomy S/P insertion of spinal cord stimulator Family History Family History Sibling Diabetes mellitus Family history of suicide Hypertension Family history of Parkinson's disease Family history of coronary artery disease Mother Hypertension Carcinoma of colon Family history of malignant neoplasm of uterus Family history of heart disease in male family member before age 55 Patient's mother is Father Malignant neoplasm of prostate Other Family history of malignant neoplasm Social History Social History Smoking packs per day: 1 Smoking cigarettes per day: 20.0 Years smoked: 9 Smoking pack-years: 9.00 Smoking status: Never smoker Tobacco type: cigarettes Second hand tobacco smoke exposure: No Smoking end date:
[2022-06-03 17:37] VITALS: BP 144/65; PULSE 68; RESP 16; TEMP 36.5; O2SAT 100
--- NOTE | 2022-06-03 17:54 | PC.NURSE ---
Pt unsure of his home medications, did not bring a list.
== END 2022-06-03 18:25 | disposition home or self-care (01) ==
PROVIDERS: Emergency Provider Nurse Practitioner Family; PCP Family Medicine
DX: N30.01 Acute cystitis with hematuria (principal); R80.9 Proteinuria, unspecified; F41.1 Generalized anxiety disorder; E78.5 Hyperlipidemia, unspecified; I10 Essential (primary) hypertension; Z96.653 Presence of artificial knee joint, bilateral; Z96.612 Presence of left artificial shoulder joint; F17.210 Nicotine dependence, cigarettes, uncomplicated
CPT/HCPCS: 81003; 99213; G0463

== ENCOUNTER 2022-06-30 13:42 | Outpatient (CLI) | payer MEDICARE, SELFPAY ==
--- NOTE | ~2022-06-30 | XR_ITS ---
EXAMINATION: XR shoulder RT min 2V DATE: 06/30/2022 14:05 INDICATION: Right shoulder pain. TECHNIQUE: 4 views of right shoulder were obtained. COMPARISON: Right shoulder radiographs 04/14/2005 FINDINGS: Bone alignment is normal. No fracture. There is severe osteoarthritis of glenohumeral joint and mild osteoarthritis of acromioclavicular joint. Epidural electrodes are noted. IMPRESSION: 1. Severe osteoarthritis of glenohumeral joint. Reviewed, dictated and finalized at location A. IT OPERATIONS PROCESSOR
== END 2022-06-30 13:43 | disposition home or self-care (01) ==
PROVIDERS: PCP Family Medicine; Visit Provider Family Medicine
DX: M19.011 Primary osteoarthritis, right shoulder (principal)
CPT/HCPCS: 73030

== ENCOUNTER 2022-07-13 11:49 | Inpatient (IN) | payer MEDICARE, SELFPAY ==
[2022-07-06 15:21] VITALS: BMI 26.6
--- NOTE | 2022-07-06 15:48 | PC.NURSE ---
Report to the Outpatient Waiting Room, entrance under the green pavilion located off [facility], at time _6:30AM on date __07/13/22 . Planned Procedure Time: __8:30AM . Time changes happen often and if your time is changed the preop area will call you the afternoon before. - You and your visitor will be asked to self-screen and do not enter if you have any COVID symptoms. - Only one visitor is requested with a max of two and NO children visitors are allowed at this time. - The patient visitor may be requested to leave or wait in car when not with patient due to distancing restrictions. - A mask is optional within the hospital. Patients may have clear liquids (water, carbonated beverages, clear teas, apple juice) until 3 hours prior to surgery with a maximum of 20 ounces. - No food from midnight until time of surgery Take the following medications with a SIP of water the morning of surgery: ____BUPROPION, BUSPIRONE, ESCITALOPRAM____ Medications to discontinue per physician ___HOLD ALL VITAMINS/SUPPLEMENTS 3 DAYS PRE-OP Date to take last dose 07/09/22 Please no make-up, nail bulgarian, hairspray, perfume, deodorant, or body powder the day of surgery. No jewelry (including any body piercings) or valuables the day of surgery, leave them at home. Please take a shower or bath the night before, or the morning of, surgery with an antibacterial soap. Wear comfortable, loose fitting clothing. Children are encouraged to wear pajamas. - Jewelry must be removed prior to entering the operating room. Rings and piercings that are not removed may be cut off. - The hospital will not accept responsibility for valuables. - Please leave all valuables, including medications, at home the day of surgery. If you are going home after surgery, a licensed bull driver must drive you home. - NO public transportation without another adult if you receive anesthesia. - We recommend that an adult stay with you for 24 hours following discharge. - We also recommend that you do not drive, make important decision, drink alcoholic beverages, or take any drugs that were not prescribed by your health care provider for at least 24 hours after your discharge time.. Follow any additional instructions given to you from your surgeon. If you or anyone in your household have experienced Covid symptoms in the past week, please notify your surgeon or the nurse liaison at the phone number below for possible testing. Telephone instructions given to __PATIENT & WIFE__and asked if any additional questions and then verbalized understanding. Patient advised to call surgeon office or pre surgery nurse liaison [phone] if any additional questions.
--- NOTE | 2022-07-12 10:06 | PM.IMHP ---
H&P: HPI History of Present Illness Date/Time: 07/12/22 10:06 Chief Complaint: Recurrent ventral hernia Narrative: patient is a 76-year-old man who noticed abdominal pain that woke him up about 3:00 a.m. on a daily basis. He went to the emergency room and was found to have an epigastric and hypogastric recurrent hernia. Patient had a history of laparoscopic inguinal hernia repair. Following that he developed trocar site hernias at both the umbilicus and the left-sided trocar. Direct repair with mesh of each of these resulted in recurrence. Patient then had on 08/06/2015 a retro rectus open hernia repair with mesh. The left side was a transversus abdominis myofascial flap advancement repair, the right side was retro rectus with mesh. Patient will did well for quite some time but was having this abdominal pain as described above. He was seen in the office and found to have a recurrent upper abdominal midline hernia. It was explained to him that the hernia may not have been the cause of the pain he was experiencing waking him up at 3:00 a.m.. Interestingly, this abdominal pain does not occur at any other time of the day. Regardless, the patient prefers to go ahead with repair of this recurrent upper abdominal hernia. He is taken to surgery now for this purpose to be done laparoscopically under anesthesia. Patient does have chronic low back pain and has a spinal cord stimulator that was placed in 2016. The settings on this were changed in improved in October of 2021. Review of Systems Review of Systems: All systems reviewed & are unremarkable except as noted in HPI and below ( HPI and those items noted below) Constitutional: Constitutional: Denies chills and Denies fever(s) Cardiovascular: Cardiovascular: Denies chest pain, Denies diaphoresis, Denies dyspnea and Denies paroxysmal nocturnal dyspnea Respiratory: Respiratory: Denies chest congestion, Denies cough and Denies dyspnea Integumentary/Breasts: Skin/Breast: Denies lesions and Denies rash PMFSH Past Medical History Medical History Arthritis of left shoulder region Chronic neck pain Family history of colon cancer SAE (generalized anxiety disorder) History of anemia History of colon polyps HLD (hyperlipidemia) HTN (hypertension), benign IFG (impaired fasting glucose) Major depression, recurrent, chronic Surgical History Surgical History H/O cataract extraction H/O hernia repair History of back surgery History of bilateral knee replacement History of left shoulder replacement Hx of cholecystectomy S/P insertion of spinal cord stimulator Family History Family History Sibling Diabetes mellitus Family history of suicide Hypertension Family history of Parkinson's disease Family history of coronary artery disease Mother Hypertension Carcinoma of colon Family history of malignant neoplasm of uterus Family history of heart disease in male family member before age 55 Patient's mother is Father Malignant neoplasm of prostate Other Family history of malignant neoplasm Social History Social History Smoking packs per day: 1.2 Smoking cigarettes per day: 24.0 Years smoked: 5 Smoking pack-years: 6.00 Smoking status: Former smoker Tobacco type: cigarettes Second hand tobacco smoke exposure: No Smoking end date: 02/18/71 Alcohol intake: never Substance use: never Substance use type: does not use Additional living arrangements comments: Gender identity (if verbalized by the patient): Male Spiritual care concerns: No Meds Home Medications and Allergies Home Medications Medication Instructions Recorded Confirmed Type lamotrigine 200 mg tablet 200 mg PO HS 08/12/19 07/06/22 History e
--- NOTE | 2022-07-12 14:42 | WPDANESEPPF ---
Anes - Initial Pre Proc Eval Procedure: Operation Date: 07/13/22 08:30 Proposed Procedures p Laparoscopic Recurrent Incisional Hernia Repair with Mesh - Michael Bernal MD Date/Time: 07/12/22 14:42 Surgeon: Michael Bernal MD Pre Op Diagnosis: recurrent incisional hernia Patient Data Age: 76 Gender: M Height: 1.75 m Weight: 82 kg Allergies Allergy/AdvReac Type Severity Reaction Status Date / Time hydrocodone AdvReac Unknown Confusion Verified 07/06/22 15:08 meperidine AdvReac Unknown Nausea Verified 07/06/22 15:08 promethazine AdvReac Unknown Confusion, Verified 07/06/22 15:08 NAUSEA Bumble Bee Allergy Severe SEVERE Uncoded 07/06/22 15:08 SWELLING Home Medications Medication Instructions Recorded Confirmed Type lamotrigine 200 mg tablet 200 mg PO HS 08/12/19 07/13/22 History escitalopram oxalate 5 mg tablet 5 mg PO QAM 08/31/20 07/13/22 History mecobalamin (vitamin B12) 1,000 1,000 mcg PO DAILY 08/31/20 07/13/22 History mcg chewable tablet acetaminophen 500 mg tablet 1,000 mg PO Q6H PRN Pain 12/26/20 07/13/22 History (Acetaminophen Extra Strength) ascorbate calcium (vitamin C) 500 1,000 mg PO DAILY 12/26/20 07/13/22 History mg tablet cholecalciferol (vitamin D3) 25 25 mcg PO DAILY 12/26/20 07/13/22 History mcg (1,000 unit) chewable tablet (Vitamin D3) Lactobacills gasseri-Bifidobac 1 cap PO QAM 09/30/21 07/13/22 History bifidum,longum 1.5 billion cell capsule ([employer]) bupropion HCl 150 mg 24 hr tablet, 150 mg PO QAM 09/30/21 07/13/22 History extended release buspirone 10 mg tablet 10 mg PO TID 09/30/21 07/13/22 History montelukast 10 mg tablet 10 mg PO QHS 09/30/21 07/13/22 History ropinirole 0.5 mg tablet 0.5 mg PO BID 09/30/21 07/13/22 History ondansetron 4 mg disintegrating 4 mg PO Q8H PRN nausea and 05/24/22 07/13/22 Rx tablet vomiting #14 tabs carbidopa 25 mg-levodopa 100 mg See Rx Instructions .Route 06/25/22 07/13/22 Rx tablet .COMPLEX #30 tabs hydrochlorothiazide 25 mg tablet 25 mg PO QAM 07/06/22 07/13/22 History naproxen sodium 220 mg capsule 220 mg PO Q12H PRN Pain 07/06/22 07/13/22 History (Aleve) simvastatin 40 mg tablet See Rx Instructions .Route 07/12/22 07/13/22 Rx .COMPLEX #90 tabs Patient hx anesthesia problems: none Family hx anesthesia problems: none Results Review: All pre-operative results and documents have been reviewed as part of the pre-operative evaluation. [facility] Past Medical History Medical History Arthritis of left shoulder region Chronic neck pain Family history of colon cancer SAE (generalized anxiety disorder) History of anemia History of colon polyps HLD (hyperlipidemia) HTN (hypertension), benign IFG (impaired fasting glucose) Major depression, recurrent, chronic Surgical History Surgical History H/O cataract extraction H/O hernia repair History of back surgery History of bilateral knee replacement History of left shoulder replacement Hx of cholecystectomy S/P insertion of spinal cord stimulator Family History Family History Sibling Diabetes mellitus Family history of suicide Hypertension Family history of Parkinson's disease Family history of coronary artery disease Mother Hypertension Carcinoma of colon Family history of malignant neoplasm of uterus Family history of heart disease in male family member before age 55 Patient's mother is Father Malignant neoplasm of prostate Other Family history of malignant neoplasm Social History Social History Smoking packs per day: 1.2 Smoking cigarettes per day: 24.0 Years smoked: 5 Smoking pack-years: 6.00 Smoking status: Former smoker Tobacco type: cigarettes Second hand tobac
[2022-07-13] VITALS (17 sets, daily range): BP systolic 90–152; BP diastolic 57–73; PULSE 60–89; RESP 20–25; TEMP 36.4–37.1; O2SAT 97–100; BMI 29.9
--- NOTE | 2022-07-13 | ECHO_ITS ---
Patient Info Name: Geovanny Cuevas Age: 76 years : 1945 Gender: Male Ht: 69 in Wt: 182 lbs BSA: 2.02 m2 HR: 72 bpm BP: 152 / 73 mmHg Heart Rhythm: Sinus Rhythm Exam Date: 07/13/2022 12:06 PM Exam Location: [facility] Patient Status: Inpatient Admit Date: 07/13/2022 Staff Ordering Physician: Scott Rider MD Elementary Supervisor: Enrique Lechuga RDCS Attending Provider: Mihcael Bernal MD Exam Type: CA echo dop color flow w con Study Info Indications I46.9 - Cardiac arrest, cause unspecified Complete two-dimensional, color flow and Doppler transthoracic echocardiogram is performed with contrast to opacify the left ventricle and to improve the deliniation of the left ventricle endocardial borders. Contrast/Agitated Saline Contrast/Ag. Saline: Definity Amount: 2.00 ml Administered By: Enrique Lechuga RDCS Existing IV Access: Yes IV Access Condition: patent with no signs of infiltration Summary 1. Left ventricular size with [id number] concentric left ventricular hypertrophy. Left ventricular systolic function of the lower limit of normal, calculated 48% ejection fraction, visually appears more in the 50-55% range. No segmental wall motion abnormalities. Grade 1 diastolic dysfunction is present. 2. Left atrial chamber dimension is mildly enlarged. 3. There is trivial pericardial effusion. 4. No significant valve disease. 5. Normal sinus rhythm. Left Ventricle Left ventricular chamber dimension is normal. Left ventricular systolic function is normal, estimated at Empty. There is moderately increased left ventricular wall thickness. Left ventricular septal wall motion is normal. The left ventricular diastolic function is grade I diastolic dysfunction. Right Ventricle Right ventricular chamber dimension is normal. Right ventricular systolic function is normal. Left Atria Left atrial chamber dimension is mildly enlarged. Right Atria Right atrial chamber dimension is normal. Aortic Valve The aortic valve is trileaflet. There is no aortic valve sclerosis. There is no aortic valve stenosis. There is no aortic valve regurgitation. Pulmonic Valve The pulmonic valve is normal. There is no pulmonic valve stenosis. There is no pulmonic regurgitation. Mitral Valve The mitral valve has normal leaflets. There is no mitral valve stenosis. There is no mitral valve regurgitation. The mitral valve annulus is mildly calcified. Tricuspid Valve The tricuspid valve leaflets are normal. There is no significant tricuspid valve stenosis. There is trace tricuspid valve regurgitation. No pulmonary hypertension, estimated pulmonary arterial systolic pressure is Empty. Pericardium/Pleural The pericardium appears normal. There is trivial pericardial effusion. Inferior Vena Cava Normal inferior vena cava with >50% collapse upon inspiration consistent with Empty right atrial pressure, Empty. Aorta The aortic root size at the sinus of Valsalva is normal. The prox ascending aorta size is normal. Left Ventricular Outflow Tract Name Value Normal LVOT Doppler LVOT Peak Gradient 7 mmHg LVOT Mean
--- NOTE | ~2022-07-13 | XR_ITS ---
XR chest 1V portable 07/18/2022 12:54 Indication: Respiratory failure. Endotracheal tube check. Procedure: AP portable chest Comparison: Comparison to multiple prior studies sequentially, with oldest reviewed study dated 06/22. Findings: There is left basilar airspace disease. Endotracheal tube tip 3.6 cm above the thom. Dist al aspect of the NG tube not visualized. Spinal stimulator leads are noted overlying the thoracic spi ne. No significant effusion, edema or pneumothorax. Impression: 1: Left basilar airspace disease may represent atelectasis or pneumonia. Reviewed, dictated and finalized at location A. SECRETARY Impression: 1: Left basilar airspace disease may represent atelectasis or pneumonia.
--- NOTE | ~2022-07-13 | CT_ITS ---
EXAMINATION: CT brain wo con DATE: 07/18/2022 12:02 INDICATION: Altered mental status TECHNIQUE: Computed tomography (CT) of the head was performed without intravenous contrast. The mA wa s adjusted according to patient size. Iterative reconstruction technique was employed. Exam dose: 98 3.67 mGy-cm total exam DLP. COMPARISON: 03/24/2013 CT head FINDINGS: Examination is limited by patient motion artifact. Moderate cerebral and cerebellar volume loss. No intracranial mass lesion or hemorrhage or cerebrovascular accident is evident. There is cerebral atherosclerosis. There is nonspecific diminished attenuation cerebral white matter, likely due to chronic small vessel ischemic changes. No subdural or epidural hematoma is detected. The mastoid air cells and paranasal sinuses are normally developed and aerated. No apparent skull fra cture or bone destruction is noted. IMPRESSION: Cerebral atherosclerosis and chronic small vessel ischemic changes of the cerebral white matter Moderate cerebral and cerebellar volume loss No acute intracranial finding Reviewed, dictated and finalized at Location A. Reviewed, dictated and finalized at location B. ER DRIVER
--- NOTE | ~2022-07-13 | XR_ITS ---
XR chest 1V portable DATE: 07/14/2022 05:58 INDICATION: Respiratory failure, mechanical ventilation TECHNIQUE: Portable AP chest on 07/10/2022 at 0521 hours COMPARISON: 07/13/2022 portable AP chest at 1746 hours FINDINGS: ET tube in satisfactory position approximately 3 cm above thom. NG tube noted passing int o the stomach. Cardiomegaly. Aortic unfolding. There are bilateral predominantly central and lower lung zone infiltrates and/atelectasis. No pneumot horax is evident. 2 electrodes overlie the lower thoracic spinal canal. Status post left glenohumeral arthroplasty. IMPRESSION: Cardiomegaly, bilateral central and lower lung zone infiltrates, suggesting pulmonary david ma. Pneumonia is not excluded No detectable pneumothorax Reviewed, dictated and finalized at location A. GREASER IMPRESSION: Cardiomegaly, bilateral central and lower lung zone infiltrates, reyes ggesting pulmonary edema. Pneumonia is not excluded No detectable pneumothorax
--- NOTE | ~2022-07-13 | XR_ITS ---
XR abdomen NG/feed tube rechec INDICATION: Evaluate NG tube position. TECHNIQUE: Limited KUB perform for evaluating NG tube . COMPARISON: Comparison to multiple prior studies sequentially, with oldest reviewed study dated 06/22. FINDINGS: NG tube tip in the stomach. Visualized bowel gas pattern is nonspecific.There are spinal s urgical changes. Spinal stimulator leads are present. IMPRESSION: 1: NG tube tip in the stomach. Reviewed, dictated and finalized at location A. CTOR OF PATIENT FINANCIAL SERVICES
--- NOTE | ~2022-07-13 | XR_ITS ---
EXAMINATION: XR chest 1V portable Exam Date/Time: 07/13/2022 17:45 SHREDDER TENDER PEAT HISTORY: Pneumothorax follow-up Comparison: CTPA, same date at 12:35 PM, x-ray chest same date at 11:09 AM. RESULT: Lines, tubes, and devices: Nasogastric and endotracheal tubes remain in stable and good position. Le ft shoulder arthroplasty. Stimulator wires terminate over the lower thoracic spine 6. Lungs and pleura: Minimal bibasilar atelectasis. No focal consolidation. No definite pneumothorax. Cardiomediastinal silhouette: Stable. Other: No acute osseous or upper abdominal finding. IMPRESSION: Known small right hydropneumothorax, small pericardial effusion, and small pneumomediastinum are not radiographically visualized. Lines and tubes described above. Reviewed, dictated and finalized at location K. DDER TENDER PEAT IMPRESSION: Known small right hydropneumothorax, small pericardial effusion, and small pneu momediastinum are not radiographically visualized. Lines and tubes described ab ove.
--- NOTE | ~2022-07-13 | XR_ITS ---
XR abdomen NG/feed tube insert DATE: 07/16/2022 10:25 INDICATION: NG tube insertion TECHNIQUE: Portable supine AP view on 07/16/2022 at 1019 hours COMPARISON: 07/15/2022 KUB FINDINGS: An NG tube is present in the gastric fundus, the proximal port chest distal to the diaphrag matic hiatus. IMPRESSION: NG tube in gastric fundus, proximal side-port just distal to the diaphragmatic hiatus Reviewed, dictated and finalized at Location A. Reviewed, dictated and finalized at location A. SACTION MANAGER IMPRESSION: NG tube in gastric fundus, proximal side-port just distal to the di aphragmatic hiatus
--- NOTE | ~2022-07-13 | XR_ITS ---
XR chest 1V portable DATE: 07/17/2022 06:00 INDICATION: Respiratory failure TECHNIQUE: Portable AP chest on 07/17/2022 at 0525 hours COMPARISON: 07/16/2022 portable AP chest at 0221 hours FINDINGS: An NG tube is been placed in the stomach since 07/16/2022 Right upper extremity PIC catheter tip is situated at the superior cavoatrial junction approximately. There is moderate pulmonary vascular congestion, but this is improved since 07/16/2022. There are maikol e persistent, central and lower lung zone infiltrates, with atelectasis and/or consolidation of the l eft lower lobe, with minimal improvement since 07/16/2022. No pneumothorax. IMPRESSION: Mild improvement of congestive changes and infiltrates since 07/16/2022 Reviewed, dictated and finalized at location A. AIN DRIER IMPRESSION: Mild improvement of congestive changes and infiltrates since 2021
--- NOTE | ~2022-07-13 | XR_ITS ---
XR chest 1V portable DATE: 07/15/2022 06:00 INDICATION: Respiratory failure TECHNIQUE: Portable AP chest on 07/15/2022 at 0529 hours COMPARISON: 07/14/2022 portable AP chest at 1321 hours FINDINGS: There is pulmonary vascular congestion and redistribution. There are bilateral pulmonary in filtrates which are more prominent centrally and in the lower lung zones, suggesting pulmonary edema; pneumonia and aspiration pneumonitis are not excluded. There is minimal if any pleural effusion. No pneumothorax. Right upper extremity PIC catheter tip overlies right atrium. Status post left glenohumeral arthroplasty. Diffuse osteopenia. 2. Electrodes overlie the thoracic spinal canal. IMPRESSION: Persistent congestive changes and bilateral pulmonary infiltrates, mildly increased since 07/14/2022 Reviewed, dictated and finalized at location A. FOLDER
--- NOTE | ~2022-07-13 | CT_ITS ---
EXAMINATION: CTA chest PE abdomen pel DATE: 07/15/2022 18:08 INDICATION: Shortness of breath and chest pain post hernia surgery. TECHNIQUE: Computed tomography (CT) pulmonary angiogram of the chest was performed with 100 mL Omnipa que-350 intravenous contrast. Additional 3D reconstructions utilizing coronal maximum intensity proje ction (MIP) were performed. CT of the abdomen and pelvis was performed with intravenous contrast util izing the same contrast bolus following a short delay. Automated exposure control and iterative recon struction technique were employed. The dose-length product was 711.57 mGy-cm. COMPARISON: None FINDINGS: Chest: Excellent contrast opacification of the pulmonary arteries. Some streak artifact but also significant respiratory motion artifact which mildly decreases sensitivity in segmental pulmonary arteries and s ignificantly many of the subsegmental pulmonary arteries. No definitive pulmonary embolism identified . Small bilateral posterior layering pleural effusions. Dependent compressive atelectasis in the bila teral upper and lower lobes with homogeneous parenchymal enhancement of the collapsed portions of the lung. Additional mild discoid atelectasis in the right middle lobe. There is some smooth septal line thickening in the dependent lungs consistent with mild pulmonary edema. No pneumothorax. Cardiomegal y. Atherosclerotic coronary artery calcific lesions. Significant decrease in size of the small perica rdial effusion with greater than simple fluid attenuation suggesting a hemopericardium. Thoracic aort a is normal in caliber with no dissection. No pathologically enlarged thoracic lymphadenopathy. Right upper extremity peripherally inserted central venous catheter (PICC) tip at the caudal superior inderjit a cava. There are a pair of spinal stimulator leads which extends cephalad in the posterior aspect of the central canal with cephalad tips at the level of T7 and T8. Moderate thoracic spondylosis. Abdomen/pelvis: Cholecystectomy clips the gallbladder fossa. Liver, spleen, pancreas and bilateral adrenal glands are normal. Cysts at the lower poles of both kidneys measuring 1.2 cm on the left and 7.5 cm on the righ t. Excreted contrast is seen in the bilateral renal collecting systems and along portions of the bila teral ureters extending into the bladder which is partially decompressed around a Blum catheter. Mod erate amount of stool scattered throughout the colon. There is an anastomotic suture line along with several diverticula along the sigmoid colon with no adjacent inflammatory stranding to suggest divert icular colitis. There are few fluid-filled but not likely dilated loops of small bowel which could re present a post operative ileus. Normal appendix. Small amount of hemoperitoneum in the deep pelvis. S mall amount of fluid and residual single tiny focus of gas upper abdominal ventral hernia with underl cara likely mesh repair. No deeper free intraperitoneal gas. No pathologically enlarged abdominal or pelvic lymphadenopathy. Severe lumbar spondylosis with at L3-S1 posterior spinal fusion with bilatera l vertical holly and pedicle screw fixation. IMPRESSION: 1. No evident pulmonary embolism. Sensitivity decreased in the segmental pulmonary arteries and nondi agnostic in many of the subsegmental pulmonary arteries due to primarily to respiratory motion. 2. Persistent small bilateral pleural effusions with moderate atelectasis predominantly in the depend ent bilateral upper and lower lobes. 3. Decrease in size of a small likely hematoma pericardium demonstrates greater than simple fluid att enuation. 4. Small amount of hemoperitoneum in the pelvis likely related to recent ventral hernia repair with i nterval decrease in a now small amount of fluid and gas superficial to the mesh repair. 5. Fluid-filled but not frankly dilated loops of small bowel which could represent residual
--- NOTE | ~2022-07-13 | XR_ITS ---
EXAMINATION: XR chest 1V portable, XR abdomen/kub 1V DATE: 07/15/2022 16:28 INDICATION: Shortness of breath TECHNIQUE: 1. frontal view of the chest was obtained. 2. Supine AP view of the abdomen and pelvis were obtained. COMPARISON: Chest radiograph dated 07/15/2022 FINDINGS: CHEST: Persistent mild elevation the left hemidiaphragm. Slight improvement in airspace opacities at the chance ateral lung bases. Additional persistent bilateral streaky and mild airspace opacities with perihilar and right upper and mid lung predominance. No pleural effusion or pneumothorax. Borderline heart siz e accounting for AP technique. Right upper extremity peripherally inserted central venous catheter (P ICC) tip at the superior cavoatrial junction. Reverse left total shoulder arthroplasty. Spinal stimu lator leads project over the central canal the lower thoracic spine. KUB: Moderate amount of gas and stool scattered throughout the colon. There is also some gas in a few nond ilated loops of small bowel in a nonspecific nonobstructive bowel gas pattern. Cholecystectomy clips in right upper quadrant. Moderate lumbar spondylosis with L3-S1 instrumented posterior spinal fusion. Moderate right hip osteoarthritis. IMPRESSION: 1. Bilateral lung disease with some improved aeration at the lower lung zones. Differential would inc lude pneumonia, pulmonary edema, atelectasis or some combination thereof. 2. Borderline heart size. 3. Nonspecific, nonobstructive bowel gas pattern. Reviewed, dictated and finalized at location A. CTOR OF TRAINING IMPRESSION: 1. Bilateral lung disease with some improved aeration at the lower lung zones. Differential would include pneumonia, pulmonary edema, atelectasis or some comb ination thereof. 2. Borderline heart size. 3. Nonspecific, nonobstructive bowel gas pattern.
--- NOTE | ~2022-07-13 | XR_ITS ---
EXAM: XR abdomen NG/feed tube recheck DATE: 07/16/2022 19:08 HISTORY: check ng tube placement . COMPARISON: 07/16/2022. FINDINGS: NG tube tip in the gastric fundus, side port at the GE junction. Cholecystectomy clips. Pa rtially visualized lumbar fusion hardware. Left-sided stimulator with leads projecting over the mid/l ower thoracic spine. Left medial basal opacity. Normal partially visualized bowel gas pattern. No org anomegaly. No abnormal abdominal calcification. Degenerative changes in the spine. IMPRESSION: High positioned NG tube, consider advancing by 6 cm. Reviewed, dictated and finalized at location K. MACY INNOVATION ASSISTANT
--- NOTE | ~2022-07-13 | CT_ITS ---
EXAMINATION: CT abdomen pelvis wo con DATE: 07/18/2022 16:50 INDICATION: Acute anemia. Recent surgery. Patient on anticoagulation. TECHNIQUE: Computed tomography (CT) of the abdomen and pelvis was performed without intravenous contr ast. The dose-length product was 1245.88 mGy-cm. Automated exposure control and iterative reconstruct ion technique were employed. COMPARISON: CT dated 07/15/2022 FINDINGS: There are small bilateral pleural effusions. There is bibasilar dependent atelectasis. Ther e is high density pericardial effusion/hemopericardium. There is high density fluid in the abdomen an d pelvis, possibly hemorrhage. Fluid in the pelvis measures 66 Hounsfield units compared with a large right renal cyst measuring 17 Hounsfield units. There are new low-density masses in the left hepatic lobe including a 5 x 2.5 cm hypodense mass just to the left of midline in the lateral segment and a 5 x 2.8 cm hypodense mass in the medial segment of the left hepatic lobe. The spleen, pancreas, adren al glands are unremarkable. There is bilateral renal atrophy. There is an exophytic 7.8 cm right sridhar l cyst. Nonobstructive bowel gas pattern. There is Blum catheter in the bladder. There is residual c ontrast in the bladder. There is residual contrast in the renal collecting systems, possibly from rec ent CTA chest performed on 07/15/2022. There are severe degenerative changes of the hips. There is de xtroscoliosis of the lumbar spine. There are pedicle screws extending from L3-S1. The left superiormo st pedicle screws extends into the L2-3 disc space. There is a surgical anastomotic site in the left lower pelvis involving the sigmoid colon. IMPRESSION: 1. New hypodense masses of the left hepatic lobe which are not well characterized due to lack of cont rast. Differential diagnosis includes infection/abscess formation and hemorrhage. Recommend correlati on with contrast-enhanced CT abdomen and pelvis. 2: High density fluid in the pleural space, pericardial space, abdomen and pelvis, suspicious for he morrhage of uncertain origin. Dr. Delvin Kapadia discussed with patient's nurse in the intensive care unit, Lesley, at 07/18/2022 17:2 1 DIESEL FITTER MECHANIC. Reviewed, dictated and finalized at location A. EL FITTER MECHANIC IMPRESSION: 1. New hypodense masses of the left hepatic lobe which are not well characteriz ed due to lack of contrast. Differential diagnosis includes infection/abscess f ormation and hemorrhage. Recommend correlation with contrast-enhanced CT abdome n and pelvis. 2: High density fluid in the pleural space, pericardial space, abdomen and pel vis, suspicious for hemorrhage of uncertain origin. Dr. Delvin Kapadia discussed with patient's nurse in the intensive care unit, Miguelina fitch, at 07/18/2022 17:21 DIESEL FITTER MECHANIC.
--- NOTE | ~2022-07-13 | XR_ITS ---
EXAMINATION: XR chest 1V portable DATE: 07/18/2022 05:43 INDICATION: Respiratory failure. TECHNIQUE: A single frontal view of the chest was obtained. COMPARISON: Chest single view 07/17/2022, chest CT 07/15/2022 FINDINGS: There are airspace opacities in the perihilar regions and lower lung zones. No pleural effu dorita or pneumothorax. The heart size is normal. Epidural electrodes are noted. The nasogastric tube t ip is in the stomach. There is a left shoulder arthroplasty. A right upper extremity peripherally ins erted central venous catheter (PICC) is seen with tip in the superior vena cava. IMPRESSION: 1. Airspace opacities in the perihilar regions and lower lung zones with improvement on the left, con sistent with atelectasis versus pneumonia. Reviewed, dictated and finalized at location A. LING INSTRUCTOR IMPRESSION: 1. Airspace opacities in the perihilar regions and lower lung zones with improv ement on the left, consistent with atelectasis versus pneumonia.
--- NOTE | ~2022-07-13 | CT_ITS ---
EXAMINATION: CTA chest PE protocol DATE: 07/13/2022 12:48 INDICATION: Cardiac arrest. TECHNIQUE: Computed tomography angiography (CTA) of the chest was performed with 100 mL Omnipaque-350 intravenous contrast timed to evaluate the pulmonary arteries. Coronal maximum intensity projection 3D-reconstructions were created by the technologist. Automated exposure control and iterative reconst ruction technique were employed. The dose-length product was 595.43 mGy-cm. COMPARISON: Chest CT 08/27/2018, CT abdomen and pelvis 05/24/2022 FINDINGS: There is moderate atelectasis bilaterally with a dependent predominance. There are small pl eural effusions. There is a small right pneumothorax. Mild emphysema. Pneumomediastinum is noted. The re are foci of free intraperitoneal gas. The endotracheal tube tip is in expected position above the thmo. The nasogastric tube tip is in the stomach. The heart size is normal. There is a small perica rdial effusion measuring soft tissue attenuation. Thoracic aorta is normal in caliber. There is mild aortic atherosclerosis. There is no pulmonary embolus. There is a small volume of perisplenic ascites measuring greater than simple fluid in attenuation. There is a total left shoulder arthroplasty. The re is soft tissue gas in the chest wall bilaterally. There is moderate thoracic spondylosis. Epidural electrodes are noted. There is an old healing/healed fracture of anterior left eighth rib. IMPRESSION: 1. Small right hydropneumothorax. Small left pleural effusion. 2. Free intraperitoneal gas, pneumomediastinum, and bilateral chest wall gas, likely secondary to rec ent surgery. 3. Small pericardial effusion measuring soft tissue attenuation suspicious for hemopericardium. 4. Small volume of perisplenic ascites measuring greater than simple fluid in attenuation, suspicious for hemoperitoneum. 5. No pulmonary embolus. Reviewed, dictated and finalized at location A. BUYER IMPRESSION: 1. Small right hydropneumothorax. Small left pleural effusion. 2. Free intraperitoneal gas, pneumomediastinum, and bilateral chest wall gas, l ikely secondary to recent surgery. 3. Small pericardial effusion measuring soft tissue attenuation suspicious for hemopericardium. 4. Small volume of perisplenic ascites measuring greater than simple fluid in a ttenuation, suspicious for hemoperitoneum. 5. No pulmonary embolus.
--- NOTE | ~2022-07-13 | XR_ITS ---
EXAMINATION: XR chest ET placement, XR abdomen NG/feed tube insert DATE: 07/13/2022 11:20 INDICATION: Intubation and orogastric tube insertion post cardiac arrest. TECHNIQUE: 1. Portable AP view of the chest was obtained. 2. Portable AP supine view of the abdomen was obtained. COMPARISON: Chest radiograph dated 03/06/2022 FINDINGS: Chest: Endotracheal tube tip 4.8 cm above the thom. Cardiac defibrillator pads project over the chest. Mil d linear discoid atelectasis projects of the right midlung zone. Indeterminate thin line projecting b etween the posterolateral right third and fourth ribs which cannot be followed more cephalad or cauda lly but which does raise some suspicion for possible small right apical pneumothorax. No pleural effu dorita or left-sided pneumothorax. Heart size is normal. There is increased prominence of the aortic ar ch which may be related to rightward rotation of the patient. Spinal stimulator leads project over th e central canal the lower thoracic spine. Left reverse total shoulder arthroplasty. Abdomen: Nasogastric tube tip in the body the stomach with side-port near the gastroesophageal junction. Mera cystectomy clips in right upper quadrant. There is subcutaneous gas along the lateral right abdominal wall likely related to recent surgery. Partially visualized bilateral vertical holly and pedicle screw fixation for lumbar posterior spinal fusion beginning at L3 and extending below the caudal margin of the [id number]. IMPRESSION: 1. Endotracheal tube tip 4.8 cm above the thom. Nasogastric tube tip in stomach but would consider advancement by 3-[address] the proximal side-port below the gastroesophageal junction. 2. Possible small right apical pneumothorax. This was discussed with the ICU physician. The patient i s being sent for chest CT which should allow for more definitive determination. 3. Increased prominence of the aortic arch likely related to rightward rotation of the patient. This could simply be reassessed on CT imaging. 4. Soft tissue gas along the lateral right abdominal and lower chest wall likely related to recent reyes rgery. Reviewed, dictated and finalized at location A. E MARK ATTORNEY IMPRESSION: 1. Endotracheal tube tip 4.8 cm above the thom. Nasogastric tube tip in stoma ch but would consider advancement by 3-[address] the proximal side-port bel ow the gastroesophageal junction. 2. Possible small right apical pneumothorax. This was discussed with the ICU ph ysician. The patient is being sent for chest CT which should allow for more def initive determination. 3. Increased prominence of the aortic arch likely related to rightward rotation of the patient. This could simply be reassessed on CT imaging. 4. Soft tissue gas along the lateral right abdominal and lower chest wall likel y related to recent surgery.
--- NOTE | ~2022-07-13 | XR_ITS ---
XR chest 1V portable DATE: 07/16/2022 02:26 INDICATION: Pulmonary edema TECHNIQUE: Portable AP chest on 07/16/2022 at 0221 hours COMPARISON: 07/15/2022 CTA chest 07/15/2022 portable AP chest FINDINGS: There are persistent bilateral pulmonary infiltrates, right greater than left. Heart size appears within normal limits. Right upper stomach the catheter tip overlies superior vena cava. Electrodes overlie thoracic spinal canal. Status post left glenohumeral arthroplasty. Osteopenia. IMPRESSION: No significant change since 07/15/2022 Reviewed, dictated and finalized at location A. LITATION TRAINING SPECIALIST
--- NOTE | ~2022-07-13 | XR_ITS ---
EXAMINATION: XR chest 1V portable DATE: 07/20/2022 08:19 INDICATION: Endotracheal tube repositioning. TECHNIQUE: A single frontal view of the chest was obtained. COMPARISON: Chest single view at 5:49 AM FINDINGS: There are airspace opacities in all lung zones bilaterally with a perihilar predominance. T here are small pleural effusions. No pneumothorax. The heart size is normal. The endotracheal tube ti p is 2.7 cm above the thom. A right upper extremity peripherally inserted central venous catheter ( PICC) is seen with tip at the superior cavoatrial junction. Epidural electrodes are noted. There is a left shoulder arthroplasty. The nasogastric tube tip is beyond the inferior margin of the radiograph , but at least to the stomach. IMPRESSION: 1. Stable diffuse lung disease, consistent with pulmonary edema versus pneumonia. 2. Small pleural effusions. Reviewed, dictated and finalized at location A. MANAGEMENT SOCIAL WORKER IMPRESSION: 1. Stable diffuse lung disease, consistent with pulmonary edema versus pneumoni a. 2. Small pleural effusions.
--- NOTE | ~2022-07-13 | XR_ITS ---
EXAMINATION: XR chest 1V portable DATE: 07/20/2022 06:18 INDICATION: Respiratory failure. TECHNIQUE: A single frontal view of the chest was obtained. COMPARISON: Chest single view 07/18/2022, chest CT 07/15/2022 FINDINGS: There are airspace opacities in the perihilar regions and lung bases. There are small pleur al effusions. No pneumothorax. The heart size is normal. The endotracheal tube tip is 2.5 cm above th e thom. A right upper extremity peripherally inserted central venous catheter (PICC) is seen with t ip in the superior vena cava. The nasogastric tube tip is beyond the inferior margin of the radiograp h, but at least to the stomach. Epidural electrodes are noted. There is a left shoulder arthroplasty. IMPRESSION: 1. Small pleural effusions. 2. Stable airspace opacities in the perihilar regions and at the lung bases, consistent with atelecta sis versus pulmonary edema. Reviewed, dictated and finalized at location A. SPRING FORMER IMPRESSION: 1. Small pleural effusions. 2. Stable airspace opacities in the perihilar regions and at the lung bases, co nsistent with atelectasis versus pulmonary edema.
--- NOTE | ~2022-07-13 | XR_ITS ---
EXAMINATION: XR chest PICC line DATE: 07/14/2022 14:39 INDICATION: PICC line placement TECHNIQUE: frontal view of the chest was obtained. COMPARISON: Chest radiograph dated 07/14/22 at 5:21 AM FINDINGS: Right upper extremity peripherally inserted central venous catheter (PICC) tip at the superior cavoa trial junction. Persistent airspace opacities at the bilateral lower lung zones. Small left pleural effusion. Minute residual pneumothorax at the medial right apex. No significant change in an enlarged cardiac silhouet te likely combination of cardiomegaly and residual hemopericardium as seen on prior CT. Additional sm all amount of pneumomediastinum identified on prior CT is not appreciated on the current study. Rever se left total shoulder arthroplasty. Spinal stimulator leads project over the lower thoracic central canal. IMPRESSION: 1. Right upper extremity PICC line tip at the superior cavoatrial junction. 2. Decrease in size of a now minute right apical pneumothorax. 3. No significant change in opacities at the bilateral lower lung zones consistent with atelectasis a nd/or pneumonia with small left pleural effusion. 4. Unchanged enlarged cardiac silhouette consistent with remain clear and possible persistent hemoper icardium as seen on prior CT. Reviewed, dictated and finalized at location A. L SOCIAL WORKER IMPRESSION: 1. Right upper extremity PICC line tip at the superior cavoatrial junction. 2. Decrease in size of a now minute right apical pneumothorax. 3. No significant change in opacities at the bilateral lower lung zones consist ent with atelectasis and/or pneumonia with small left pleural effusion. 4. Unchanged enlarged cardiac silhouette consistent with remain clear and possi ble persistent hemopericardium as seen on prior CT.
[2022-07-13] MEDS: ACETAMINOPHEN 500 MG TABLET 1000 MG PO (07:28)
[2022-07-13] MEDS: LACTATED RINGERS 1,000 ML 30 ML IV CONT (07:30)
[2022-07-13] MEDS: KETOROLAC 15 MG/ML VIAL (*BKC) IV PUSH (07:40)
--- NOTE | 2022-07-13 08:22 | WPDHPUPDATE1 ---
History and Physical Update Update Date/Time: 07/13/22 08:22 History and Physical has been reviewed, including an updated exam of the patient. There are NO changes in the patient's condition. Risks, benefits, and alternatives have been discussed and questions answered. Patient agrees to proceed with procedure.
[2022-07-13] MEDS: ceFAZolin 2 GM/D5W 50 ML 2 GM/50 ML BAG IVPB (08:41)
[2022-07-13] MEDS: BUPIVACAINE/EPINEPHRINE 0.25% 10 ML VIAL 20 ML INFILTRATE (10:35)
--- NOTE | 2022-07-13 11:00 | ADMGEN ---
This patient, Geovanny Cuevas, was admitted to Intensive Care Unit-5. Patient/family oriented to hospital policies and general routines including ID bracelet, bed and alarms, visiting hours, pain management, procedures, bathroom and other care routines, personal items, smoking policy, room service/diet, and visiting hours. Information on how to activate the Rapid Response Team has been discussed. Patient/Family are encouraged to report perceived risks to care and to ask questions if they do not understand what they are told or what they should do.
--- NOTE | 2022-07-13 11:07 | ECG_ITS ---
Measurements Intervals [place] Rate: 94 P: 64 W[place]: 158 QRS: 47 QRSD: 105 T: 85 QT: 368 QTc: 462 Interpretive Statements SINUS RHYTHM WITH MARKED SINUS ARRHYTHMIA NONSPECIFIC ST & T-WAVE ABNORMALITY- DIFFUSE LEADS BORDERLINE ECG COMPARED TO ECG 03/27/2019 16:54:27 SINUS ARRHYTHMIA NOW PRESENT ST-T WAVE ABNORMALITY NOW PRESENT Electronically Signed On 07-13-2022 12:02:30 ELDERLY SITTER by Jeffrey Dunham D.O.
[2022-07-13 11:27] LABS: Glucose Point of Care 180 mg/dl (65-105)
[2022-07-13 11:32] LABS: Basophils Absolute Auto 0.1 K/mm3 (0.0-0.1); Basophils Percent Auto 0.8 % (0.2-1.2); Eosinophils Absolute Auto 0.1 K/mm3 (0-0.3); Eosinophils Percent Auto 0.6 % (0-4.4); Hematocrit 36.5 % (42.0-52.0); Hemoglobin 11.7 g/dL (14.0-18.0); Immature Granulocyte Absolute 0.04 K/mm3 (0.00-0.031); Immature Granulocyte Percent A 0.5 % (0-0.5); Lymphocytes Absolute Auto 0.89 K/mm3 (0.9-3.2); Lymphocytes Percent Auto 11.3 % (18.3-44.2); Mean Corpuscular HGB Conc 32.1 g/dl (32-36); Mean Corpuscular Hemoglobin 32.9 pg (26-34); Mean Corpuscular Volume 102.5 fl (80-100); Mean Platelet Volume 9.9 fl (7.4-10.4); Monocytes Absolute Auto 0.2 K/mm3 (0.1-0.6); Neutrophils Absolute Auto 6.6 K/mm3 (1.3-6.7); Neutrophils Percent Auto 83.8 % (45.5-73.1); Platelet Count Result 224 k/mm3 (150-375); Red Blood Count 3.56 M/mm3 (4.6-6.20); Red Cell Distribution Width 13.2 % (11.5-14.5); White Blood Count 7.9 K/mm3 (4.5-10.0)
--- NOTE | 2022-07-13 11:35 | W.PM.PROC2 ---
Procedure Note - Detailed Date of Procedure 07/13/22 Pre-op Diagnosis recurrent incisional hernia Post-op Diagnosis Same Procedure Performed Laparoscopic repair recurrent incisional hernia with 25 x 20 cm Ventralex underlay mesh, cardiopulmonary resuscitation Surgeon Michael Bernal MD Silviculturist Lesley Avila SUPERVISOR SOLDER MAKING Anesthesia General and Local ( 0.25% Marcaine with epinephrine) Indications patient underwent retrorectus repair of recurrent incisional hernias at the umbilicus and the left lower quadrant in late 2014. The left side was a transversus abdominis myofascial flap advancement, the right side was a retro rectus repair. Polypropylene mesh was used. He recently noted that he was having mid abdominal and lower abdominal pain that was waking him up at 3:00 a.m. in the morning. He went to the emergency room for this. CT scan done in the emergency room showed a recurrent upper abdominal hernia. Patient was seen in the office. He was noted to have an epigastric and hypogastric recurrent incisional hernia. His pain did not seem to be at the area of the hernia. It was explained that the hernia may not be the cause of the pain. Patient did want to proceed with hernia repair. He is taken to surgery now for laparoscopic repair of this recurrent incisional hernia. Findings The hernia defect was wide, 5 cm using a ruler and measuring intra-abdominally. It was in the epigastric area and extended into the hypogastric area. Much of the mesh in the upper partial of the repair was tacked to the lower chest wall anteriorly. Over 5 cm overlap of the hernia defect was achieved throughout. Patient also had numerous adhesions which were expected and were taken down with laparoscopic adhesiolysis prior to the hernia repair. Towards the end of the surgery, possibly 20 minutes before completion, the patient developed increased end-tidal pressures and hypoxemia. The surgery finished but the patient continued to have problems, became bradycardic and then pulseless. CPR was carried out for a couple of minutes at least. Patient did respond to this as well as medication. His blood pressure improved such that he was not on pressors. He had a good pulse and remained intubated. He transfer directly to the intensive care unit where, at least at this point in time, he is critically ill but hemodynamically stable. Description of Procedure Patient was taken to surgery and induced into general anesthesia. The entire abdomen was prepped and draped. A Blum catheter had been placed. We initially entered the abdominal cavity in the right subcostal position laterally. Local was infiltrated in a small stab incision placed. The varies needle was introduced into the abdominal cavity. Saline drop technique was used to ensure intraperitoneal location. We then insufflated and distended the abdomen. A 5 mm applied Medical optical trocar was then placed into the peritoneal cavity. We insufflated through this and placed the scope. A 2nd 5 mm port was placed in the right lateral abdomen. From here numerous omental anterior abdominal wall adhesions were taken down. This was extensive and took probably 45 minutes. Once these were down, there was still adhesions of the lateral segment of the left lobe of the liver to the anterior abdominal wall but we could see on the patient's left side to place trocars for the hernia repair. Hernia defect was noted and was noted to be a wide defect longer than appreciated as well. We then placed a 5 mm port in the lateral left subcostal position. Another 5 mm port in the lateral mid abdomen and a 10 11 port in the left lower quadrant. With the camera on the patient's left side we then took down the adhesions of the left lobe of the liver to the anterior abdominal wall and divided the falciform ligament. Very little bleeding occurred from this or the previous adhesiolysis. This gave us access to well beyond the xiphoid process and included
[2022-07-13] MEDS: MIDAZOLAM HCL (*CRX) 2 MG/2 ML VIAL 4 MG IV PUSH (11:39)
[2022-07-13] MEDS: FENTANYL 2,500MCG/NS250ML(*CRX 2,500 MCG/250 ML BAG IV CONT (11:40)
[2022-07-13 11:43] LABS: Alanine Aminotransferase 43 U/L (6-50); Albumin Level 3.4 g/dL (3.5-5.1); Alkaline Phosphatase 61 U/L (38-126); Anion Gap 9 mmol/L (8-16); Aspartate Amino Transferase 64 U/L (17-59); Bilirubin,Total 0.4 mg/dL (0.2-1.3); Blood Urea Nitrogen 19 mg/dL (9-20); Calcium 8.1 mg/dL (8.4-10.2); Carbon Dioxide 23 mmol/L (22-30); Chloride 105 mmol/L (98-107); Estimated CRCL calculation 51 ml/min; Estimated Glomerular Filt Rate > 60; Glucose 212 mg/dL (65-110); Phosphorus 3.9 mg/dL (2.5-4.5); Sodium 137 mmol/L (137-145)
[2022-07-13 11:44] LABS: Lactic Acid Reflex 2.5 mmol/L (0.7-2.0); Prothrombin Time 13.1 Seconds (11.1-14.7)
[2022-07-13 11:52] LABS: Alveolar/Arterial O2 Gradient 561.4 mmHg; Base Excess ABG -1.8 mEq/l (+/-2.0); Fractional Inspired Oxygen 100 %; HCO3 ABG 26.2 mEq/l (22.0-26.0); Oxygen Content ABG 17.2 %vol (16.0-22.0); Oxygen Saturation ABG 95.8 % (95.0-100.0); Oxyhemoglobin 94.3 % THb (90.0-100.0); PCO2 ABG 59.3 mmHg (35.0-45.0); PO2 ABG 92.3 mmHg (80.0-100.0); PO2 FiO2 Ratio Arterial Blood 0.92 %; Total Hemoglobin 12.9 g/dL (12.0-18.0)
[2022-07-13 11:56] LABS: Troponin I 0.042 ng/mL (0.000-0.034)
[2022-07-13 11:56] LABS: pH ABG 7.263 (7.350-7.450)
[2022-07-13 11:57] LABS: Device VENTILATOR; Site Drawn LEFT RADIAL
--- OUTSIDE RECORDS SUMMARY | 2022-07-13 11:57 | XMS_ITS | Encounter Summary ---
:1945 Author Care Team Providers Name Role Phone Dr. Valente Lopez Primary Care Provider [phone] Dr. Valente Lopez Referring Provider [phone] Reason for Visit 3 month follow up; Nail care/trim Assessment and Plan 1. Ingrowing toenail toenails debrided in length without inc ident. Patient may follow up in 3-4 months for nail care Discussion Note: None recorded.Patient educational handouts: No information available. Plan of Care Reminders Provider Appointments None recorded. ? ? Lab None recorded. ? ? Referral None recorded. ? ? Procedures None recorded. ? ? Surgeries None recorded. ? ? Imaging None recorded. ? ? Medications Name Start Date ? ? aspirin 81 mg chewable tablet 10/30/2014 Chew 1 tablet every day by oral route. azithromycin 250 mg tablet ? TAKE 2 TABLETS BY MOUTH ON DAY 1, AND T HEN TAKE 1 TABLET BY MOUTH ONCE A DAY ON DAY 2 THROUGH DAY 5 bupropion HCl 150 mg tablet,12 hr sustained-release(sm oking deterrent) ? TAKE 1 TABLET BY MOUTH ONCE DAILY IN THE MORNING FOR 30 DAYS bupropion HCl XL 150 mg 24 hr tablet, extended release ? TAKE 1 TABLET BY MOUTH ONCE DAILY bupropion HCl XL 300 mg 24 hr tablet, extended release ? TAKE 1 TABLET BY MOUTH ONCE DAILY IN THE MORNING buspirone 10 mg tablet ? TAKE 1 TABLET BY MOUTH THREE TIMES DAILY buspirone 15 mg tablet ? TAKE 1 TABLET BY MOUTH TWICE DAILY FOR 30 DAYS buspirone 7.5 mg tablet ? carbidopa 25 mg-levodopa 100 mg tablet ? TAKE 1 TABLET BY MOUTH ONCE DAILY AT 9PM diclofenac 1 % topical gel ? APPLY 2 GRAMS TOPICALLY TO AFFECTED AREA THREE TIMES DAILY dicyclomine 10 mg capsule ?
--- OUTSIDE RECORDS SUMMARY | 2022-07-13 11:57 | XMS_ITS ---
:1945 Author Care Team Providers Name Role Phone DR. DARRION LOYOLA Primary Care Provider [phone] DR. DARRION LOYOLA Referring Provider [phone] Allergies Code Code System Name Reaction Severity Status Onset NKDA ? Medications Name Status Start Date Stop Date ? ? acetaminophen 300 mg-codeine 30 mg tablet Active ? Not available amoxicillin 500 mg capsule Active ? Not a vailable amoxicillin 875 mg-potassium clavulanate 125 mg tablet Active ? Not available azithromycin 250 mg tablet Active ? Not a vailable bupropion HCl 150 mg tablet,12 hr sustained-release(smoking dete rrent) Active ? Not available TAKE 1 TABLET BY MOUTH ONCE DAILY IN THE MORNING bupropion HCl XL 150 mg 24 hr tablet, extended release Active ? Not available bupropion HCl XL 300 mg 24 hr tablet, extended release Active ? Not available buspirone 10 mg tablet Active ? Not avail able buspirone 15 mg tablet Active ? Not avail able buspirone 7.5 mg tablet Active ? Not avai lable carbidopa 25 mg-levodopa 100 mg tablet Active ? Not available TAKE 1 TABLET BY MOUTH ONCE DAILY AT 9 PM. cefadroxil 500 mg capsule Active ? Not av ailable celecoxib 200 mg capsule Active ? Not cathi ilable cephalexin 500 mg capsule Active ? Not av ailable ciprofloxacin 500 mg tablet Active ? Not available cyclobenzaprine 10 mg tablet Active ? Not available TAKE 1 TABLET BY MOUTH THREE TIMES A DAY NEEDED FOR MUSCLE S PASMS diclofenac 1 % topical gel Active ? Not a vailable APPLY 2 GRAMS TOPICALLY TO AFFECTED AREA THREE TIMES DAILY docusate sodium Active ? Not available escitalopram 5 mg tablet Active ? Not cathi ilable TAKE 1 TABL
--- OUTSIDE RECORDS SUMMARY | 2022-07-13 11:57 | XMS_ITS ---
:1945 Author Care Team Providers Name Role Phone DR. DARRION LOYOLA Primary Care Provider [phone] DR. DARRION LOYOLA Referring Provider [phone] Allergies Code Code System Name Reaction Severity Status Onset 5489 RxNorm Hydrocodone ? ? Active ? 6754 RxNorm Meperidine Nausea ? Active ? 8745 RxNorm Promethazine Nausea ? Active ? 859066 RxNorm Venom-honey Bee ? ? Active ? Medications Name Status Start Date Stop Date ? ? acetaminophen 300 mg-codeine 30 mg tablet Completed ? 04/04/2019 alprazolam 1 mg tablet Unknown 10/30/2014 Not avail able Take 1 tablet 3 times a day by oral route. amoxicillin 500 mg capsule Completed ? 04/04 amoxicillin 875 mg-potassium clavulanate 125 mg Completed ? 08/22/2019 tablet aspirin 81 mg chewable tablet Active 10/30/2014 No t available Chew 1 tablet every day by oral route. azithromycin 250 mg tablet Active ? Not a vailable TAKE 2 TABLETS BY MOUTH ON DAY 1, AND T HEN TAKE 1 TABLET BY MOUTH ONCE A DAY ON DAY 2 THROUGH DAY 5 bupropion HCl 150 mg tablet,12 hr sustained-release(smoking dete rrent) Active ? Not available TAKE 1 TABLET BY MOUTH ONCE DAILY IN THE MORNING FOR 30 DAYS bupropion HCl XL 150 mg 24 hr tablet, extended release Active ? Not available TAKE 1 TABLET BY MOUTH ONCE DAILY bupropion HCl XL 300 mg 24 hr tablet, extended release Active ? Not available TAKE 1 TABLET BY MOUTH ONCE DAILY IN THE MORNING buspirone 10 mg tablet Active ? Not avail able TAKE 1 TABLET BY MOUTH THREE TIMES DAILY buspirone 15 mg tablet Active ? Not avail able TAKE 1 TABLET BY MOUTH TWICE DAILY FOR 30 DAYS buspirone 7.5 mg tablet Active
[2022-07-13 11:58] LABS: Arterial Blood Gas Ventilator rate 20 /MIN
--- OUTSIDE RECORDS SUMMARY | 2022-07-13 11:58 | XMS_ITS ---
:1945 Author Care Team Providers Name Role Phone DR. DARRION LOYOLA Primary Care Provider [phone] DR. DARRION LOYOLA Referring Provider [phone] JAJA DOTSON MD OTHER [phone] JEOVANNY LEE OTHER [phone] KANDY DIAS OTHER [phone] Allergies Code Code System Name Reaction Severity Status Onset 467187 RxNorm Venom-honey Bee ? ? Active ? NKDA ? Medications Name Status Start Date Stop Date ? ? acetaminophen 300 mg-codeine 30 mg tablet Completed ? 05/21/2019 alprazolam 1 mg tablet Unknown ? Not avail able Take 1 tablet 3 times a day by oral route. amoxicillin 500 mg capsule Completed ? 05/23 amoxicillin 875 mg-potassium clavulanate 125 mg Active ? Not available tablet aspirin 81 mg chewable tablet Active ? No t available Chew 1 tablet every day by oral route. azithromycin 250 mg tablet Completed ? 01/06 bupropion HCl 150 mg tablet,12 hr sustained-release(smoking dete rrent) Active ? Not available TAKE 1 TABLET BY MOUTH ONCE DAILY IN THE MORNING bupropion HCl XL 150 mg 24 hr tablet, extended Active ? Not available release bupropion HCl XL 300 mg 24 hr tablet, extended Active ? Not available release buspirone 10 mg tablet Active ? Not avail able buspirone 15 mg tablet Active ? Not avail able buspirone 7.5 mg tablet Active ? Not avai lable carbidopa 25 mg-levodopa 100 mg tablet Active ? Not available TAKE 1 TABLET BY MOUTH ONCE DAILY AT 9 PM. cefadroxil 500 mg capsule Unknown ? Not av ailable celecoxib 200 mg capsule Ac
--- OUTSIDE RECORDS SUMMARY | 2022-07-13 11:58 | XMS_ITS ---
:1945 Author Care Team Providers Name Role Phone DR. DARRION LOYOLA Primary Care Provider [phone] DR. DARRION LOYOLA Referring Provider [phone] YVROSE DE DIOS Turning Sander Operator [phone] Allergies Code Code System Name Reaction Severity Status Onset NKDA ? Medications Name Status Start Date Stop Date ? ? acetaminophen 300 mg-codeine 30 mg tablet Completed ? 04/04/2019 amoxicillin 500 mg capsule Completed ? 04/04 amoxicillin 875 mg-potassium clavulanate 125 mg tablet Completed ? 08/22/2019 azithromycin 250 mg tablet Completed ? 07/27 bupropion HCl 150 mg tablet,12 hr sustained-release(smoking [...] AT 9 PM. cefadroxil 500 mg capsule Completed ? 2016 celecoxib 200 mg capsule Active ? Not cathi ilable cephalexin 500 mg capsule Completed ? 2018 ciprofloxacin 500 mg tablet Unknown ? Not available cyclobenzaprine 10 mg tablet Active ? Not available TAKE 1 TABLET BY MOUTH THREE TIMES A DAY NEEDED FOR MUSCLE S PASMS diclofenac 1 % topical gel Active ? Not a vailable APPLY 2 GRAMS TOPICALLY TO AFFECTED AREA THREE TIMES DAILY escitalopram 5 mg tablet Active ? Not cathi ilable TAKE 1 TABLET BY MOUTH ONCE KHLOE
[2022-07-13 11:59] LABS: Arterial Blood Gas PEEP 5 cmH2O; Arterial Blood Gas Tidal Volume 420 ml; Arterial Blood Gas Vent Mode CMV
[2022-07-13] MEDS: LACTATED RINGERS 1,000 ML 100 ML IV CONT ×2 (12:04→21:29)
--- NOTE | 2022-07-13 12:23 | WPDCNINT ---
Assessment and Plan Assessment and plan (1) Cardiac arrest: Code(s): I46.9 - Cardiac arrest, cause unspecified Status: Acute Assessment and Plan: Unknown etiology EKG shows sinus rhythm with sinus arrhythmia T they have depression in anterior leads. Patient had recent Holter monitoring as an outpatient which showed PACs and a brief run of PSVT. Check serial troponin Check stat echo Consult cardiology CT angiogram of lung negative for PE but did show small hydropneumothorax on the right (2) Acute respiratory failure: Code(s): J96.00 - Acute respiratory failure, unspecified whether with hypoxia or hypercapnia Status: Acute Assessment and Plan: Acute Respiratory failure secondary to cardiac arrest Chest x-ray reviewed -advance ET tube by 3 cm. May have possible pneumothorax. Patient is going for CT chest Vent settings and ABG reviewed -increase PEEP to 8, increase tidal volume to 450, increase rate to 24 Continue full mechanical ventilation support to prevent hypoxemia/hypercarbia and end organ damage. CTA lung was negative for PE but did show Small right hydropneumothorax. Small left pleural effusion.. Pneumothorax could be from the gas insufflated for laparoscopic surgery and is very small. Will monitor and repeat chest x-ray in [address] Bernal. If worsens he may need chest tube Low tidal volume ventilation strategy to prevent volutrauma Will attempt SBT when stable (3) Recurrent incisional hernia: Code(s): K43.2 - Incisional hernia without obstruction or gangrene Status: Chronic Assessment and Plan: Status post laparoscopic repair Management per surgery OG tube to include intermittent suction (4) Hyperglycemia: Code(s): R73.9 - Hyperglycemia, unspecified Status: Acute Assessment and Plan: Patient has history of impaired fasting glucose but glucose on BMP elevated at 212 Sliding scale insulin (5) Lactic acidosis: Code(s): E87.20 - Acidosis, unspecified Status: Acute Assessment and Plan: Lactic acid level at 2.5 likely secondary to cardiac arrest and hypoperfusion Monitor (6) Hypotension: Code(s): I95.9 - Hypotension, unspecified Status: Acute Assessment and Plan: Patient was hypertensive in the OR and received vasopressin and epinephrine He also received IV fluid bolus Blood pressure is adequate at this time Continue IV fluid Monitor blood pressure May need vasopressors (7) Hemopericardium: Code(s): I31.2 - Hemopericardium, not elsewhere classified Status: Acute Assessment and Plan: CTA suggest small hemopericardium which could be from CPR Hold Lovenox Echo has been done and is pending Hemodynamically stable at this time (8) Hemoperitoneum: Code(s): K66.1 - Hemoperitoneum Status: Acute Assessment and Plan: CT suggest small perisplenic hemoperitoneum which could be secondary to CPR or abdominal surgery Hold Lovenox Monitor hemoglobin Plan DVT prophylaxis -SCDs Stress ulcer prophylaxis -Pepcid Nutrition -NPO Code Status - Full Code Case discussed with Dr. Liao with cardiology and Dr. Bernal with General surgery Total Critical Care Time - 45 minutes Due to a high probability of clinically significant, life threatening deterioration, the patient required my highest level of preparedness to intervene emergently and I personally spent this critical care time directly and personally managing the patient. This critical care time included obtaining a history; examining the patient; pulse oximetry; ordering and review of studies; arranging urgent treatment with development of a management plan; evaluation of patient's response to treatment; frequent reassessment; and discussions with other providers. It was exclusive of separately billable procedures and treating other patients and teaching time. Please see Assessment and Plan section and the rest of t
[2022-07-13] MEDS: MIDAZOLAM HCL (*CRX) 2 MG/2 ML VIAL IV PUSH ×2 (12:36→18:01)
[2022-07-13 12:57] LABS: Hemoglobin A1C 6.2 % (<5.7)
--- NOTE | 2022-07-13 13:03 | PM.CNCAR ---
Assessment and Plan Assessment and plan (1) Cardiac arrest: Code(s): I46.9 - Cardiac arrest, cause unspecified Status: Acute Assessment and Plan: Characterized by hypoxia, hypotension, and bradycardia with heart rates in the 30s, with immediate attention and rapid return to normal. Studies show no evidence of pulmonary emboli Some mild EKG changes which may represent underlying CAD. Mildly elevated troponin x1 so far, with the family history of CAD and risk factors for CAD as well. Possible reaction to propofol, insufflation, vasovagal, etc? Continue troponin run EKG in the morning Ischemia evaluation probably on Monday, probably w/ Lexiscan, possible cath, depending on patient's course, EKG and troponins (2) Status post hernia repair: Code(s): Z98.890 - Other specified postprocedural states; Z87.19 - Personal history of other diseases of the digestive system Status: Acute Assessment and Plan: Status post laparoscopic hernia repair today. (3) Hemopericardium: Code(s): I31.2 - Hemopericardium, not elsewhere classified Status: Acute Assessment and Plan: Very small pericardial effusion, possibly result of CPR. Limited echo tomorrow/Monday a.m. to evaluate for progression of effusion History of Present Illness History of Present Illness Consult date/time: 07/13/22 13:03 Reason For Visit: recurrent incisional hernia Narrative: Geovanny Cuevas is a 76 y.o. male whom I was asked to see at the request of Dr. Rider for my advice and opinion regarding his transient intra-operative cardiac arrest. Mr. Cuevas has previously been healthy and active, able to vacuum and do other work with no shortness of breath or chest pain. No h/o heart disease. He had an elective laparoscopic incisional hernia repair today by Dr. Bernal. toward the end of surgery he was found to be coming hypoxic. His end-tidal CO2 declined. He then became bradycardic and received some glycopyrrolate and ephedrine. The nurse windows systems architect summoned Dr. Chua who noted the patient had ectopy and then became very hypertensive with a systolic blood pressure of 210. The blood pressure normalized and ectopy improved but he had persistent hypoxia, with an O2 sat of 90-95% on 100% FiO2. He then became hypoxic and his blood pressure declined, and heart rate declined to the 30s. He received vasopressin, atropine, and phenylephrine. He had a short course of CPR, perhaps 40 compressions. He is now in the intensive care unit, following commands, and is O2 is down to 50% FiO2. His had no further bradycardia or hypotension. He has a history of hypertension, hyperlipidemia, PACs, Anxiety, Impaired fasting glucose, and a family history of heart disease. Mr. Oscar han had some dizzy spells over the summer and was evaluated with a 48 hour monitor which showed dizzy spells correlated with NSR, no significant bradycardia. These have resolved. There has been no falls or syncope. The patient has had a cough recently which the thinks is due to allergies. Ms. Cuevas says pt gets very anxious w/ painful stimuli but does not appear that he has a h/o vasovagal episodes. FAmily requested that I call [id number] cardiothoracic anesthesiologist at [facility] Dr. Arnett [phone]. Updated him on pt's situation and progress. Was pleased w/ pt's care. Review of Systems Review of Systems: review of systems was obtained from the patient's and EMR ROS unobtainable: Yes unobtainable due to endotracheal tube and unobtainable due to medical condition PMFSH Past Medical History Medical History Arthritis of left shoulder region Chronic neck pain Family history of colon cancer SAE (generalized anxiety disorder) History of anemia History of colon polyps HLD (hyperlipidemia) HTN (hypertension), benign IFG (impaired fasting glucose) Major depression, recu
[2022-07-13] MEDS: MORPHINE SULFATE (*CRX) 4 MG/ML INJ IV PUSH ×2 (14:00→17:25)
[2022-07-13 14:30] LABS: Reflex Lactic Acid Yes or No Add Lactic
[2022-07-13 15:21] LABS: Lactic Acid 1.3 mmol/L (0.7-2.0)
--- NOTE | 2022-07-13 15:56 | ECG_ITS ---
Measurements Intervals [place] Rate: 91 P: 64 CT: 155 QRS: 48 QRSD: 107 T: 87 QT: 361 QTc: 446 Interpretive Statements SINUS RHYTHM WITH MARKED SINUS ARRHYTHMIA NONSPECIFIC ST & T-WAVE ABNORMALITY- DIFFUSE LEADS BORDERLINE ECG COMPARED TO ECG 07/13/2022 11:16:21 NO SIGNIFICANT CHANGES Electronically Signed On 07-14-2022 8:15:29 TYPING BOOKKEEPER by Jeffrey Dunham D.O.
[2022-07-13 18:01] LABS: Glucose Point of Care 126 mg/dl (65-105)
[2022-07-13 18:43] LABS: Hematocrit 34.7 % (42.0-52.0); Hemoglobin 11.3 g/dL (14.0-18.0)
[2022-07-13 18:52] LABS: Lactic Acid Reflex 1.5 mmol/L (0.7-2.0)
[2022-07-13] MEDS: MINERAL OIL/WHITE PETROLATUM OINTMENT 1 APPLIC EACH EYE (20:17)
[2022-07-13] MEDS: FAMOTIDINE 20 MG/2 ML VIAL IV PUSH (20:17)
[2022-07-13] MEDS: PROPOFOL IV EMULSION 100 ML 2.75 MG IV CONT (21:28)
[2022-07-14] VITALS (26 sets, daily range): BP systolic 89–140; BP diastolic 50–117; PULSE 75–116; RESP 18–33; TEMP 36.9–37.8; O2SAT 91–100
[2022-07-14 00:20] LABS: Glucose Point of Care 99 mg/dl (65-105)
[2022-07-14 01:25] LABS: Hematocrit 31.9 % (42.0-52.0); Hemoglobin 10.5 g/dL (14.0-18.0)
[2022-07-14 04:27] LABS: Hematocrit 29.6 % (42.0-52.0); Hemoglobin 9.6 g/dL (14.0-18.0); Mean Corpuscular HGB Conc 32.4 g/dl (32-36); Mean Corpuscular Hemoglobin 32.9 pg (26-34); Mean Corpuscular Volume 101.4 fl (80-100); Mean Platelet Volume 10.1 fl (7.4-10.4); Platelet Count Result 204 k/mm3 (150-375); Red Blood Count 2.92 M/mm3 (4.6-6.20); Red Cell Distribution Width 13.6 % (11.5-14.5); White Blood Count 7.4 K/mm3 (4.5-10.0)
[2022-07-14 04:38] LABS: Alanine Aminotransferase 40 U/L (6-50); Albumin Level 3.1 g/dL (3.5-5.1); Alkaline Phosphatase 47 U/L (38-126); Anion Gap 6 mmol/L (8-16); Aspartate Amino Transferase 50 U/L (17-59); Bilirubin,Total 0.6 mg/dL (0.2-1.3); Blood Urea Nitrogen 28 mg/dL (9-20); Calcium 8.1 mg/dL (8.4-10.2); Carbon Dioxide 25 mmol/L (22-30); Chloride 105 mmol/L (98-107); Estimated CRCL calculation 35 ml/min; Estimated Glomerular Filt Rate 42; Glucose 98 mg/dL (65-110); Magnesium 1.9 mg/dL (1.6-2.3); Phosphorus 2.5 mg/dL (2.5-4.5); Potassium 4.4 mmol/L (3.4-5.0); Sodium 136 mmol/L (137-145)
[2022-07-14 06:21] LABS: Alveolar/Arterial O2 Gradient 151.3 mmHg; Carboxyhemoglobin 0.2 % THb (0-2.0); Fractional Inspired Oxygen 35 %; HCO3 ABG 26.3 mEq/l (22.0-26.0); Methemoglobin ABG 0.3 %THb (0-1.5); Oxygen Content ABG 13.8 %vol (16.0-22.0); Oxygen Saturation ABG 94.3 % (95.0-100.0); Oxyhemoglobin 91.6 % THb (90.0-100.0); PCO2 ABG 31.6 mmHg (35.0-45.0); PO2 ABG 61.5 mmHg (80.0-100.0); PO2 FiO2 Ratio Arterial Blood 1.76 %; Reduced Hemoglobin 7.9 %THb (0-5.0); Total Hemoglobin 10.7 g/dL (12.0-18.0)
[2022-07-14 06:22] LABS: Device VENTILATOR; Modified Allen's Test Unable to perform; Site Drawn RIGHT BRACHIAL; pH ABG 7.538 (7.350-7.450)
[2022-07-14 06:23] LABS: Arterial Blood Gas PEEP 5 cmH2O; Arterial Blood Gas Tidal Volume 450 ml; Arterial Blood Gas Vent Mode CMV; Arterial Blood Gas Ventilator rate 24 /MIN
[2022-07-14] MEDS: LACTATED RINGERS 1,000 ML 100 ML IV CONT (08:19)
[2022-07-14] MEDS: MINERAL OIL/WHITE PETROLATUM OINTMENT 1 APPLIC EACH EYE (08:19)
[2022-07-14] MEDS: FAMOTIDINE 20 MG/2 ML VIAL IV PUSH ×2 (08:21→20:01)
[2022-07-14 08:59] LABS: Creatine Kinase 338 U/L (55-170)
[2022-07-14 09:14] LABS: INR 1.1; Prothrombin Time 13.8 Seconds (11.1-14.7)
[2022-07-14 09:15] LABS: Partial Thromboplastin Time 21.5 SECONDS (22.3-36.8)
--- NOTE | 2022-07-14 09:35 | PM.PNCARD ---
Progress Note: A&P Assessment and Plan (1) Cardiac arrest: Code(s): I46.9 - Cardiac arrest, cause unspecified Status: Acute Assessment and Plan: Characterized by hypoxia, hypotension, and bradycardia with heart rates in the 30s, with immediate attention and rapid return to normal. Studies show no evidence of pulmonary emboli Some mild EKG changes which may represent underlying CAD. Mildly elevated troponin x1 so far, with the family history of CAD and risk factors for CAD as well. Possible reaction to propofol, insufflation, vasovagal, etc? Continue troponin run Will order an EKG stat now Ischemia evaluation possibly tomorrow. Patient will be extubated and will discuss whether not we proceed with a Lexiscan versus catheterization. Regardless will keep NPO after midnight. (2) Status post hernia repair: Code(s): Z98.890 - Other specified postprocedural states; Z87.19 - Personal history of other diseases of the digestive system Status: Acute Assessment and Plan: Status post laparoscopic hernia repair today. (3) Hemopericardium: Code(s): I31.2 - Hemopericardium, not elsewhere classified Status: Acute Assessment and Plan: Very small pericardial effusion, possibly result of CPR. Limited echo tomorrow/Monday a.m. to evaluate for progression of effusion Subjective Date/time seen: 07/14/22 09:35 Interval history: 76-year-old who had bradycardia and arrest in OR suite during hernia surgery. Date of service 07/14/2022: No significant bradycardia overnight. He is awake alert denies any chest pain. He is still on ventilator but they are weaning to extubate. Review of Systems Review of Systems: All systems reviewed & are unremarkable except as noted in HPI and below Constitutional: Constitutional: Denies body ache(s) ENT: Reports Normal hearing present Cardiovascular: Cardiovascular: Denies chest pain Respiratory: Respiratory: Denies dyspnea Gastrointestinal: Gastrointestinal: Denies hematemesis Genitourinary: Genitourinary: Denies hematuria Integumentary/Breasts: Skin/Breast: Denies unusual bruising Allergic/Immunologic: Allergic/Immunologic: Denies GI upset with certain foods Exam Const: General: cooperative and healthy appearing Other: intubated in the ICU HENMT: Mouth: Yes moist mucous membranes Other: endotracheal tube Eyes: Sclera: sclerae normal Neck: Neck: supple and no JVD Carotids: no bruits Resp: Effort & Inspection: normal respiratory effort Auscultation: clear to auscultation bilaterally Cardio: Rate: regular rate Rhythm: regular rhythm Heart sounds: no murmurs GI: Inspection: normal to inspection Other: diminished bowel sounds Skin: General skin exam: normal color and no rashes or lesions noted Neuro: Other: patient is intermittently alert and follows commands, Extrem: Right lower extremity: no edema Left lower extremity: no edema Other: could not palpate pedal pulses on the right, intact on the left Psych: Appearance: grossly normal Mental Status: mental status grossly normal Objective Data Vital Signs Vital Signs: Vital Signs - 24 hr 07/13/22 11:40 07/13/22 11:48 07/13/22 12:10 Temperature Pulse Rate 80 76 68 Respiratory Rate 20 20 Blood Pressure Pulse Oximetry 100 Oxygen Delivery Mechanical Ventilation Fraction of Inspired Oxygen 100 07/13/22 12:35 07/13/22 12:00 07/13/22 12:00 Temperature Pulse Rate 68 66 Respiratory Rate 20 Blood Pressure Pulse Oximetry Oxygen Delivery Mechanical Ventilation Fraction of Inspired Oxygen 07/13/22 12:00 07/13/22 14:00 07/13/22 14:00 Temperature Pulse Rate 66 73 73 Respiratory Rate 20 24 H Blood Pressure 101/63 130/67 Pulse Oximetry 100 100 Oxygen Delivery Fraction of Inspired Oxygen 07/13/22 14:30 07/13/22 16:00 07/13/22 16:00 Temperature 36.4 C L Pulse Rate 72 81 R
--- NOTE | 2022-07-14 09:40 | ECG_ITS ---
Measurements Intervals [place] Rate: 98 P: 66 [place]: 154 QRS: 26 QRSD: 100 T: 32 QT: 342 QTc: 437 Interpretive Statements SINUS RHYTHM BORDERLINE ST ABNORMALITY- LATERAL LEADS BASELINE WANDER- I, II, AVR, AVL, AVF BORDERLINE ECG COMPARED TO ECG 07/13/2022 11:17:16 NO SIGNIFICANT CHANGES Electronically Signed On 07-14-2022 14:33:45 [employer]CHOOL TEACH[employer] by Jeffrey Dunham D.O.
[2022-07-14 09:41] LABS: Alveolar/Arterial O2 Gradient 131.4 mmHg; Base Excess ABG 1.3 mEq/l (+/-2.0); Fractional Inspired Oxygen 35 %; HCO3 ABG 27.3 mEq/l (22.0-26.0); Oxygen Content ABG 13.9 %vol (16.0-22.0); Oxygen Saturation ABG 90.3 % (95.0-100.0); Oxyhemoglobin 88.1 % THb (90.0-100.0); PCO2 ABG 49.2 mmHg (35.0-45.0); PO2 FiO2 Ratio Arterial Blood 1.74 %; Total Hemoglobin 11.2 g/dL (12.0-18.0); pH ABG 7.362 (7.350-7.450)
[2022-07-14 09:42] LABS: Modified Allen's Test Pass; Site Drawn LEFT RADIAL
[2022-07-14 09:43] LABS: Arterial Blood Gas PEEP 5 cmH2O; Arterial Blood Gas Pressure Support 5 cmH2O; Arterial Blood Gas Vent Mode PRESSURE SUPPORT; Device VENTILATOR
--- NOTE | 2022-07-14 09:48 | WPDINTPN ---
Progress Note: A&P Assessment and Plan (1) Cardiac arrest: Code(s): I46.9 - Cardiac arrest, cause unspecified Status: Acute Assessment and Plan: Unknown etiology EKG shows sinus rhythm with sinus arrhythmia T they have depression in anterior leads. Patient had recent Holter monitoring as an outpatient which showed PACs and a brief run of PSVT. Serial troponin was done which were elevated and then have plateaued Patient was evaluated by Cardiology Echocardiogram showed 1. Left ventricular size with [id number] concentric left ventri cular hypertrophy.? Left ventricular systolic function of the lower limit of normal, calculated 48% ejection fraction, visually appears more in the 50-55% range. No segmental wall motion abnormalities.? Grade 1 diastolic dysfunction is present. ? 2. Left atrial chamber dimension is mildly enlarged. ? 3. There is trivial pericardial effusion. ? 4. No significant valve disease. ? 5. Normal sinus rhythm. CT angiogram of lung negative for PE but did show small hydropneumothorax on the right, hemopericardium and small hemoperitoneum Plan for ischemic workup (2) Acute respiratory failure: Code(s): J96.00 - Acute respiratory failure, unspecified whether with hypoxia or hypercapnia Status: Acute Assessment and Plan: Acute Respiratory failure secondary to cardiac arrest 5/5 PSV SBT done for more than 30 minutes.. RSBI, ABGI and Vitals acceptable. Pt awake and following commands. Will extubate and monitor. NPO for now. He is hypoxic and will need supplement oxygenation. He may need Bipap PRN Chest x-ray reviewed and shows pulmonary congestion. I will hold further IV fluids. Hold Lasix due to bump in creatinine and soft blood pressure No detectable pneumothorax that was seen on CT chest CTA lung was negative for PE but did show Small right hydropneumothorax. Small left pleural effusion.. Pneumothorax could be from the gas insufflated for laparoscopic surgery and is very small. I Discussed with Dr. Bernal. Chest x-ray was repeated after 6 hours and did not show any significant increase in pneumothorax hence chest tube insertion was deferred (3) Recurrent incisional hernia: Code(s): K43.2 - Incisional hernia without obstruction or gangrene Status: Chronic Assessment and Plan: Status post laparoscopic repair Management per surgery Currently OG tube to include intermittent suction Pain control (4) Hyperglycemia: Code(s): R73.9 - Hyperglycemia, unspecified Status: Acute Assessment and Plan: Patient has history of impaired fasting glucose but glucose on BMP elevated at 212 Sliding scale insulin (5) Lactic acidosis: Code(s): E87.20 - Acidosis, unspecified Status: Acute Assessment and Plan: Lactic acid level at 2.5 likely secondary to cardiac arrest and hypoperfusion Now normalized Monitor (6) Hypotension: Code(s): I95.9 - Hypotension, unspecified Status: Acute Assessment and Plan: Patient was hypertensive in the OR and received vasopressin and epinephrine He also received IV fluid bolus Blood pressure has been adequate in ICU Continue hold further IV fluids due to possible pulmonary edema (7) Hemopericardium: Code(s): I31.2 - Hemopericardium, not elsewhere classified Status: Acute Assessment and Plan: CTA suggest small hemopericardium which could be from CPR Continue to hold Hold Lovenox Echo was done and showed trivial pericardial effusion Hemodynamically unchanged at this time Plan to repeat echo tomorrow (8) Hemoperitoneum: Code(s): K66.1 - Hemoperitoneum Status: Acute Assessment and Plan: CT suggest small perisplenic hemoperitoneum which could be secondary to CPR or abdominal surgery Hold Lovenox Monitor hemoglobin (9) Anemia: Code(s): D64.9 - Anemia, unspecified Status: Acute Assessment and Plan: Patient has hemoglobin grad
--- NOTE | 2022-07-14 11:29 | WPDANESPN ---
Anes - Prog Note Post-Op Date/Time: 07/14/22 11:29 Cardiovascular status: normal Respiratory status: other (Extubated this AM ) Airway patency: baseline Mental status: baseline Post-Op hydration status: normal Vital Signs: Last Vital Signs Temp 37.8 C H 07/14/22 07:38 Pulse 97 07/14/22 10:04 Resp 21 H 07/14/22 10:04 BP 120/101 H 07/14/22 10:00 Pulse Ox 96 07/14/22 10:04 O2 Del Method Nasal Cannula 07/14/22 10:04 O2 Flow Rate 3 07/14/22 10:04 FiO2 32 07/14/22 10:04 Pain Score (VAS): 09/30 I/O: Intake & Output 07/13/22 07/14/22 07/14/22 23:59 07:59 15:59 Intake Total 1000 1000 Output Total 350 175 Balance 650 825 Laboratory Tests 07/14/22 04:21 07/14/22 04:21 07/13/22 07/13/22 07/13/22 11:20 11:26 11:26 WBC 7.9 RBC 3.56 L Hgb 11.7 L Hct 36.5 L MCV 102.5 H MCH 32.9 MCHC 32.1 RDW 13.2 Plt Count 224 MPV 9.9 Immature Gran % (Auto) 0.5 Neut % (Auto) 83.8 H Lymph % (Auto) 11.3 L [place] % (Auto) 3.0 Eos % (Auto) 0.6 Baso % (Auto) 0.8 Lymph # (Auto) 0.89 L [place] # (Auto) 0.2 Eos # (Auto) 0.1 Baso # (Auto) 0.1 Abs Immat Gran (auto) 0.04 H Absolute Neuts (auto) 6.6 Absolute Nucleated RBC 0.0 Nucleated RBC % 0.0 PT INR APTT Puncture Site ABG pH ABG pCO2 ABG pO2 ABG PO2/FiO2 Ratio ABG HCO3 ABG O2 Saturation ABG O2 Content ABG Base Excess A-a Gradient Oxyhemoglobin Carboxyhemoglobin Methemoglobin Reduced Hemoglobin Total Hemoglobin O2 Delivery Device O2 Liters/Min Minute Volume Vent Rate Vent Mode FiO2 Tidal Volume PEEP Peak Inspir Pressure Pressure Support Sodium 137 Potassium 4.0 Chloride 105 Carbon Dioxide 23 Anion Gap 9 BUN 19 Creatinine 1.10 Estim Creat Clear Calc 51 Estimated GFR > 60 Glucose 212 H POC Capillary Glucose Hemoglobin A1c 6.2 H Lactic Acid Calcium 8.1 L Phosphorus 3.9 Magnesium 2.0 Total Bilirubin 0.4 AST 64 H ALT 43 Alkaline Phosphatase 61 Total Creatine Kinase Troponin I Total Protein 6.0 L Albumin 3.4 L 07/13/22 07/13/22 07/13/22 11:26 11:26 11:26 WBC RBC Hgb Hct MCV MCH MCHC RDW Plt Count MPV Immature Gran % (Auto) Neut % (Auto) Lymph % (Auto) [place] % (Auto) Eos % (Auto) Baso % (Auto) Lymph # (Auto) [place] # (Auto) Eos # (Auto) Baso # (Auto) Abs Immat Gran (auto) Absolute Neuts (auto) Absolute Nucleated RBC Nucleated RBC % PT 13.1 INR 1.0 APTT Puncture Site ABG pH ABG pCO2 ABG pO2 ABG PO2/FiO2 Ratio ABG HCO3 ABG O2 Saturation ABG O2 Content ABG Base Excess A-a Gradient Oxyhemoglobin Carboxyhemoglobin Methemoglobin Reduced Hemoglobin Total Hemoglobin O2 Delivery Device O2 Liters/Min Minute Volume Vent Rate Vent Mode FiO2 Tidal Volume PEEP Peak Inspir Pressure Pressure Support Sodium Potassium Chloride Carbon Dioxide Anion Gap BUN Creatinine Estim Creat Clear Calc Estimated GFR Glucose POC Capillary Glucose Hemoglobin A1c Lactic Acid 2.5 H Calcium Phosphorus Magnesium Total Bilirubin AST ALT Alkaline Phosphatase Total Creatine Kinase Troponin I 0.042 H* Total Protein Albumin 07/13/22 07/13/22 07/13/22 11:43 14:45 16:11 WBC RBC Hgb Hct MCV MCH MCHC RDW Plt Count MPV Immature Gran % (Auto) Neut % (Auto) Lymph % (Auto) [place] % (Auto) Eos % (Auto) Baso % (Auto) Lymph # (Auto) [place] # (Auto) Eos # (Auto) Baso # (Auto) Abs Immat Gran (auto) Absolute Neuts (auto) Absolute Nucleated RBC Nucleated RBC % PT INR APTT Puncture Site
--- NOTE | 2022-07-14 12:07 | PM.PNGS ---
Progress Note: A&P Assessment and Plan (1) Recurrent incisional hernia: Code(s): K43.2 - Incisional hernia without obstruction or gangrene Status: Chronic Assessment and Plan: exam largely benign, labs WNL, will start clears (2) Cardiac arrest: Code(s): I46.9 - Cardiac arrest, cause unspecified Status: Acute Assessment and Plan: ? etiology, cont careful observation in ICU setting given soft BPs Subjective Subjective Date/Time Seen: 07/14/22 12:07 extubated, c/o abd soreness, pressures on the soft side Review of Systems Review of Systems: All systems reviewed & are unremarkable except as noted in HPI and below Exam Const: General: cooperative and acute distress mild Orientation/consciousness: patient oriented x3 Resp: Auscultation: clear to auscultation bilaterally Cardio: Rate: regular rate Rhythm: regular rhythm GI: Inspection: normal to inspection, distended and incision GI Palp: Yes abdominal tenderness, Yes Soft to palpation, Yes Tenderness to palpation present (GI), No Guarding due to palpation present (GI) and No Rigid due to palpation Objective Data Vital Signs Vital Signs: Vital Signs - 24 hr 07/13/22 12:10 07/13/22 12:35 07/13/22 14:00 Temperature Pulse Rate 68 68 73 Respiratory Rate 20 20 Blood Pressure Pulse Oximetry Oxygen Delivery Oxygen Flow Rate Fraction of Inspired Oxygen 07/13/22 14:00 07/13/22 14:30 07/13/22 16:00 Temperature 36.4 C L Pulse Rate 73 72 81 Respiratory Rate 24 H 24 H Blood Pressure 130/67 96/62 L Pulse Oximetry 100 99 100 Oxygen Delivery Mechanical Ventilation Oxygen Flow Rate Fraction of Inspired Oxygen 50 07/13/22 16:00 07/13/22 16:00 07/13/22 17:22 Temperature Pulse Rate 81 79 Respiratory Rate Blood Pressure Pulse Oximetry 100 Oxygen Delivery Mechanical Ventilation Mechanical Ventilation Oxygen Flow Rate Fraction of Inspired Oxygen 50 07/13/22 18:00 07/13/22 18:00 07/13/22 20:14 Temperature Pulse Rate 75 80 82 Respiratory Rate 24 H 24 H Blood Pressure 123/66 Pulse Oximetry 98 Oxygen Delivery Oxygen Flow Rate Fraction of Inspired Oxygen 07/13/22 20:00 07/13/22 21:28 07/13/22 20:00 Temperature 36.8 C Pulse Rate 78 77 Respiratory Rate 24 H 24 H Blood Pressure 104/66 Pulse Oximetry 100 Oxygen Delivery Mechanical Ventilation Oxygen Flow Rate Fraction of Inspired Oxygen 35 07/13/22 22:00 07/13/22 20:00 07/13/22 22:00 Temperature Pulse Rate 79 87 79 Respiratory Rate 21 H Blood Pressure 90/57 L Pulse Oximetry 97 Oxygen Delivery Oxygen Flow Rate Fraction of Inspired Oxygen 07/13/22 21:00 07/13/22 23:15 07/13/22 23:15 Temperature Pulse Rate 79 89 89 Respiratory Rate 25 H 25 H Blood Pressure Pulse Oximetry 99 Oxygen Delivery Mechanical Ventilation Oxygen Flow Rate Fraction of Inspired Oxygen 40 07/14/22 00:00 07/14/22 00:00 07/14/22 00:00 Temperature 37.0 C Pulse Rate 78 76 Respiratory Rate 24 H Blood Pressure 97/51 L Pulse Oximetry 100 Oxygen Delivery Mechanical Ventilation Oxygen Flow Rate Fraction of Inspired Oxygen 35 07/14/22 02:00 07/14/22 02:00 07/14/22 02:00 Temperature 37.4 C Pulse Rate 75 75 81 Respiratory Rate 24 H 24 H Blood Pressure 92/56 L Pulse Oximetry 95 Oxygen Delivery Oxygen Flow Rate Fraction of Inspired Oxygen 07/14/22 02:00 07/14/22 02:10 07/14/22 04:00 Temperature Pulse Rate 111 H 76 76 Respiratory Rate 24 H Blood Pressure Pulse Oximetry 96 Oxygen Delivery Mechanical Ventilation Oxygen Flow Rate Fraction of Inspired Oxygen 35 07/14/22 04:00 07/14/22 04:00 07/14/22 04:25 Temperature 36.9 C Pulse Rate 76 76 Respiratory Rate 24 H 24 H Blood Pressure 89/52 L Pulse Oximetry 94 Oxygen Delivery Mechanical Ventilation Oxygen Flow Rate Fraction of Inspire
[2022-07-14 12:13] LABS: Hematocrit 31.1 % (42.0-52.0); Hemoglobin 9.9 g/dL (14.0-18.0)
[2022-07-14 12:32] LABS: Glucose Point of Care 116 mg/dl (65-105)
[2022-07-14] MEDS: MORPHINE SULFATE (*CRX) 2 MG/ML INJ IV PUSH ×2 (12:44→22:43)
[2022-07-14] MEDS: ALBUMIN HUMAN 25% 25 GM/100 ML 100 ML IVPB ×3 (12:44→23:18)
[2022-07-14 16:53] LABS: Glucose Point of Care 175 mg/dl (65-105)
[2022-07-14 17:40] LABS: Hematocrit 30.6 % (42.0-52.0); Hemoglobin 9.7 g/dL (14.0-18.0)
[2022-07-14 18:13] LABS: Creatinine Urine 322.1 mg/dL
[2022-07-14 18:25] LABS: Sodium Urine Random 13 meq/L
[2022-07-14] MEDS: CENTRAL LINE FLUSH 10 ML IV PUSH (20:01)
[2022-07-14 23:22] LABS: Glucose Point of Care 99 mg/dl (65-105)
[2022-07-15] VITALS (59 sets, daily range): BP systolic 114–161; BP diastolic 64–102; PULSE 81–110; RESP 15–33; TEMP 36.9–37.4; O2SAT 87–100; BMI 29.9
[2022-07-15] MEDS: ACETAMINOPHEN 325 MG TABLET 650 MG PO ×5 (00:10→18:35)
[2022-07-15] MEDS: MORPHINE SULFATE (*CRX) 4 MG/ML INJ IV PUSH ×2 (00:52→06:36)
[2022-07-15 04:53] LABS: Hematocrit 27.8 % (42.0-52.0); Hemoglobin 8.9 g/dL (14.0-18.0); Mean Corpuscular Hemoglobin 33.5 pg (26-34); Mean Corpuscular Volume 104.5 fl (80-100); Mean Platelet Volume 10.5 fl (7.4-10.4); Platelet Count Result 174 k/mm3 (150-375); Red Blood Count 2.66 M/mm3 (4.6-6.20); Red Cell Distribution Width 14.2 % (11.5-14.5); White Blood Count 9.9 K/mm3 (4.5-10.0)
[2022-07-15 05:07] LABS: Alanine Aminotransferase 38 U/L (6-50); Albumin Level 4.1 g/dL (3.5-5.1); Alkaline Phosphatase 47 U/L (38-126); Anion Gap 9 mmol/L (8-16); Aspartate Amino Transferase 80 U/L (17-59); Bilirubin,Total 0.6 mg/dL (0.2-1.3); Blood Urea Nitrogen 32 mg/dL (9-20); Calcium 8.4 mg/dL (8.4-10.2); Carbon Dioxide 25 mmol/L (22-30); Chloride 106 mmol/L (98-107); Estimated CRCL calculation 52 ml/min; Estimated Glomerular Filt Rate 59; Glucose 99 mg/dL (65-110); Magnesium 2.1 mg/dL (1.6-2.3); Phosphorus 3.5 mg/dL (2.5-4.5); Potassium 4.3 mmol/L (3.4-5.0); Sodium 140 mmol/L (137-145)
[2022-07-15] MEDS: ALBUMIN HUMAN 25% 25 GM/100 ML 100 ML IVPB (05:16)
[2022-07-15] MEDS: CENTRAL LINE FLUSH 10 ML IV PUSH ×3 (05:17→21:09)
--- NOTE | 2022-07-15 06:42 | ECG_ITS ---
Measurements Intervals [place] Rate: 89 P: 63 [place]: 156 QRS: 16 QRSD: 97 T: 44 QT: 351 QTc: 429 Interpretive Statements SINUS RHYTHM ST ELEVATION IN DIFFUSE LEADS, PROBABLY EARLY REPOLARIZATION BORDERLINE ECG COMPARED TO ECG 07/14/2022 11:00:28 Electronically Signed On 07-15-2022 9:47:04 [employer]OLOGY TEACHER by Jeffrey Dunham D.O.
--- NOTE | 2022-07-15 08:00 | ECHOL_ITS ---
Patient Info Name: Geovanny Cuevas Age: 76 years : 1945 Gender: Male Ht: 69 in Wt: 202 lbs BSA: 2.14 m2 HR: 86 bpm BP: 147 / 64 mmHg Heart Rhythm: Sinus Rhythm Technical Quality: Fair Exam Date: 07/15/2022 10:35 AM Exam Location: [facility] Pulmonary Exam Room: ICU5 Patient Status: Inpatient Admit Date: 07/13/2022 Staff Ordering Physician: Suzanna Liao MD Doctor Naturopathic: Lyudmila Healy RDCS Attending Provider: Michael Bernal MD Referring Physician: Keshawn SPANGLER; Exam Type: CA echo limited Study Info Indications - EVAL PERICARDIAL EFFUSION Limited two-dimensional transthoracic echocardiogram is performed. Summary 1. Left ventricular chamber dimension is normal. 2. Left ventricular systolic function is normal, estimated at 60-65%. 3. There is no increased left ventricular wall thickness. 4. The apical inferior wall, basal inferolateral wall, and mid inferolateral wall are hypokinetic. 5. There is small pericardial effusion. Left Ventricle Left ventricular chamber dimension is normal. Left ventricular systolic function is normal, estimated at 60-65%. There is no increased left ventricular wall thickness. The apical inferior wall, basal inferolateral wall, and mid inferolateral wall are hypokinetic. All other pelaez appear normal. Right Ventricle Right ventricular chamber dimension is normal. Right ventricular systolic function is normal. Left Atria Left atrial chamber dimension is normal. Right Atria Right atrial chamber dimension is normal. Aortic Valve The aortic valve is not well visualized. Pulmonic Valve The pulmonic valve is not well visualized. Mitral Valve The mitral valve has calcified annulus. Tricuspid Valve The tricuspid valve leaflets are normal. Pericardium/Pleural The pericardium appears normal. There is small pericardial effusion. Inferior Vena Cava Normal inferior vena cava with >50% collapse upon inspiration consistent with normal right atrial pressure, 5 mmHg. Tricuspid Valve Name Value Normal Estimated PAP/RSVP RA Pressure 5 mmHg <=5 Wall Motion Scoring Wall Motion Scoring Index: 1.18 Report Signatures
[2022-07-15] MEDS: FAMOTIDINE 20 MG/2 ML VIAL IV PUSH ×2 (09:12→21:08)
[2022-07-15] MEDS: FUROSEMIDE INJ 40 MG/4 ML VIAL IV PUSH ×2 (09:22→18:44)
[2022-07-15] MEDS: ALBUTEROL SULFATE NEB 2.5 MG/3 ML INH INHALATION ×2 (09:43→16:02)
[2022-07-15] MEDS: IPRATROPIUM BR 0.02% INH SOLN 0.5 MG/2.5 ML VIAL INHALATION ×2 (09:43→16:02)
--- NOTE | 2022-07-15 10:52 | WPDINTPN ---
Progress Note: A&P Assessment and Plan (1) Cardiac arrest: Code(s): I46.9 - Cardiac arrest, cause unspecified Status: Acute Assessment and Plan: Unknown etiology EKG shows sinus rhythm with sinus arrhythmia T they have depression in anterior leads. Patient had recent Holter monitoring as an outpatient which showed PACs and a brief run of PSVT. Serial troponin was done which were elevated and then have plateaued Patient was evaluated by Cardiology Echocardiogram showed 1. Left ventricular size with [id number] concentric left ventri cular hypertrophy.? Left ventricular systolic function of the lower limit of normal, calculated 48% ejection fraction, visually appears more in the 50-55% range. No segmental wall motion abnormalities.? Grade 1 diastolic dysfunction is present. ? 2. Left atrial chamber dimension is mildly enlarged. ? 3. There is trivial pericardial effusion. ? 4. No significant valve disease. ? 5. Normal sinus rhythm. CT angiogram of lung negative for PE but did show small hydropneumothorax on the right, hemopericardium and small hemoperitoneum Plan for ischemic workup by Cardiology (2) Acute respiratory failure: Code(s): J96.00 - Acute respiratory failure, unspecified whether with hypoxia or hypercapnia Status: Acute Assessment and Plan: Acute Respiratory failure secondary to cardiac arrest Extubated 07/14 Chest x-ray shows pulmonary edema -will give Lasix IV On exam patient has wheezing -will order bronchodilators No detectable pneumothorax on chest x-ray that was seen on CT chest initially after his cardiac arrest CTA lung was negative for PE but did show Small right hydropneumothorax. Small left pleural effusion.. Pneumothorax could be from the gas insufflated for laparoscopic surgery and is very small. I Discussed with Dr. Bernal at that time. Chest x-ray was repeated after 6 hours and did not show any significant increase in pneumothorax hence chest tube insertion was deferred (3) Recurrent incisional hernia: Code(s): K43.2 - Incisional hernia without obstruction or gangrene Status: Chronic Assessment and Plan: Status post laparoscopic repair Management per surgery Currently OG tube to include intermittent suction Pain control Clear liquid diet (4) Hyperglycemia: Code(s): R73.9 - Hyperglycemia, unspecified Status: Acute Assessment and Plan: Patient has history of impaired fasting glucose but glucose on BMP elevated at 212 Sliding scale insulin (5) Lactic acidosis: Code(s): E87.20 - Acidosis, unspecified Status: Acute Assessment and Plan: Lactic acid level at 2.5 likely secondary to cardiac arrest and hypoperfusion Now normalized Monitor (6) Hypotension: Code(s): I95.9 - Hypotension, unspecified Status: Acute Assessment and Plan: Patient was hypotensive in the OR and received vasopressin and epinephrine He also received IV fluid bolus Blood pressure has been adequate in ICU Continue hold further IV fluids due to possible pulmonary edema (7) Hemopericardium: Code(s): I31.2 - Hemopericardium, not elsewhere classified Status: Acute Assessment and Plan: CTA suggest small hemopericardium which could be from CPR Continue to hold Hold Lovenox Echo was done and showed trivial pericardial effusion Hemodynamically unchanged at this time Plan to repeat echo today (8) Hemoperitoneum: Code(s): K66.1 - Hemoperitoneum Status: Acute Assessment and Plan: CT suggest small perisplenic hemoperitoneum which could be secondary to CPR or abdominal surgery Hold Lovenox Monitor hemoglobin (9) Anemia: Code(s): D64.9 - Anemia, unspecified Status: Acute Assessment and Plan: Patient has hemoglobin gradually trending down He did had evidence of hemoperitoneum and hemo pericardium after CPR Anticoagulation has been hold He has been receiving some IV fl
--- NOTE | 2022-07-15 10:59 | PM.PNCARD ---
Progress Note: A&P Assessment and Plan (1) Cardiac arrest: Code(s): I46.9 - Cardiac arrest, cause unspecified Status: Acute Assessment and Plan: Characterized by hypoxia, hypotension, and bradycardia with heart rates in the 30s, with immediate attention and rapid return to normal. Studies show no evidence of pulmonary emboli Some mild EKG changes which may represent underlying CAD. Elevated troponin, with the family history of CAD and risk factors for CAD as well. Possible reaction to propofol, insufflation, vasovagal, etc? Eventual ischemic evaluation pending echo result. Will start low-dose aspirin 81 mg p.o. daily, atorvastatin 20 mg daily. Catheterization versus stress test next week (2) Status post hernia repair: Code(s): Z98.890 - Other specified postprocedural states; Z87.19 - Personal history of other diseases of the digestive system Status: Acute Assessment and Plan: Status post laparoscopic hernia repair (3) Hemopericardium: Code(s): I31.2 - Hemopericardium, not elsewhere classified Status: Acute Assessment and Plan: Very small pericardial effusion, possibly result of CPR. Await limited echo results Subjective Date/time seen: 07/15/22 10:59 Interval history: 76-year-old who had bradycardia and arrest in OR suite during hernia surgery. Date of service 07/14/2022: No significant bradycardia overnight. He is awake alert denies any chest pain. He is still on ventilator but they are weaning to extubate. Follow-up note/date of service 07/15/2022: Feels okay. Has some soreness in his abdomen. No syncope, arrhythmia, chest pain or shortness of breath Review of Systems Review of Systems: All systems reviewed & are unremarkable except as noted in HPI and below Constitutional: Constitutional: Denies body ache(s) ENT: Reports Normal hearing present Cardiovascular: Cardiovascular: Denies chest pain and Denies dyspnea Respiratory: Respiratory: Denies dyspnea Gastrointestinal: Gastrointestinal: Denies hematemesis Genitourinary: Genitourinary: Denies hematuria Integumentary/Breasts: Skin/Breast: Denies unusual bruising Neurologic: Reports Normal hearing present Allergic/Immunologic: Allergic/Immunologic: Denies GI upset with certain foods Exam Const: General: cooperative, healthy appearing and uncomfortable HENMT: Mouth: Yes moist mucous membranes Eyes: Sclera: sclerae normal Neck: Neck: supple and no JVD Thyroid: thyroid normal Carotids: no bruits Resp: Effort & Inspection: normal respiratory effort Auscultation: clear to auscultation bilaterally Cardio: Rate: regular rate Rhythm: regular rhythm Heart sounds: no murmurs GI: Inspection: normal to inspection Other: diminished bowel sounds Skin: General skin exam: normal color and no rashes or lesions noted Neuro: Cranial nerves: Yes Normal hearing present Other: patient is intermittently alert and follows commands, Extrem: Right lower extremity: no edema Left lower extremity: no edema Other: could not palpate pedal pulses on the right, intact on the left Psych: Appearance: grossly normal Mental Status: mental status grossly normal Objective Data Vital Signs Vital Signs: Vital Signs - 24 hr 07/14/22 12:00 07/14/22 14:00 07/14/22 16:00 Temperature 37.5 C Pulse Rate 99 115 H Respiratory Rate 28 H 27 H Blood Pressure 130/117 H 140/96 H Pulse Oximetry 99 94 93 Oxygen Delivery Nasal Cannula Oxygen Flow Rate 4 07/14/22 16:00 07/14/22 12:00 07/14/22 12:00 Temperature Pulse Rate 113 H 93 Respiratory Rate 27 H Blood Pressure 136/76 Pulse Oximetry 100 93 Oxygen Delivery Nasal Cannula Oxygen Flow Rate 4 07/14/22 14:00 07/14/22 16:00 07/14/22 18:00 Temperature Pulse Rate 98 113 H 106 H Respiratory Rate Blood Pressure Pulse Oximetry Oxygen Delivery Oxygen Flow Rate 07/14/22 18:00 07/14
[2022-07-15] MEDS: MORPHINE SULFATE (*CRX) 2 MG/ML INJ IV PUSH ×3 (11:06→19:20)
--- NOTE | 2022-07-15 11:53 | PM.PNGS ---
Progress Note: A&P Assessment and Plan (1) Recurrent incisional hernia: Code(s): K43.2 - Incisional hernia without obstruction or gangrene Status: Chronic Assessment and Plan: clinically improving, slowly ADAT, encourage OOB/IS (2) Cardiac arrest: Code(s): I46.9 - Cardiac arrest, cause unspecified Status: Acute Assessment and Plan: no further issues, ok to transfer to floor later today Subjective Subjective Date/Time Seen: 07/15/22 11:53 no acute issues, feels less sore today Review of Systems Review of Systems: All systems reviewed & are unremarkable except as noted in HPI and below Exam Const: General: cooperative, comfortable and no acute distress Orientation/consciousness: oriented to person and oriented to place Resp: Auscultation: diminished lung sounds Cardio: Rate: regular rate Rhythm: regular rhythm GI: Inspection: normal to inspection, distended and incision GI Palp: Yes abdominal tenderness, Yes Soft to palpation, Yes Tenderness to palpation present (GI), No Guarding due to palpation present (GI) and No Rigid due to palpation Objective Data Vital Signs Vital Signs: Vital Signs - 24 hr 07/14/22 12:00 07/14/22 14:00 07/14/22 16:00 Temperature 37.5 C Pulse Rate 99 115 H Respiratory Rate 28 H 27 H Blood Pressure 130/117 H 140/96 H Pulse Oximetry 99 94 93 Oxygen Delivery Nasal Cannula Oxygen Flow Rate 4 07/14/22 16:00 07/14/22 12:00 07/14/22 12:00 Temperature Pulse Rate 113 H 93 Respiratory Rate 27 H Blood Pressure 136/76 Pulse Oximetry 100 93 Oxygen Delivery Nasal Cannula Oxygen Flow Rate 4 07/14/22 14:00 07/14/22 16:00 07/14/22 18:00 Temperature Pulse Rate 98 113 H 106 H Respiratory Rate Blood Pressure Pulse Oximetry Oxygen Delivery Oxygen Flow Rate 07/14/22 18:00 07/14/22 20:00 07/14/22 20:00 Temperature Pulse Rate 103 H 99 103 H Respiratory Rate 22 H 22 H Blood Pressure 103/77 Pulse Oximetry 100 100 Oxygen Delivery Nasal Cannula Oxygen Flow Rate 5 07/14/22 20:00 07/14/22 21:51 07/14/22 22:00 Temperature 37.1 C Pulse Rate 97 97 Respiratory Rate 26 H Blood Pressure 121/65 Pulse Oximetry 95 94 Oxygen Delivery High Flow Nasal Cannula Oxygen Flow Rate 7 07/14/22 22:00 07/14/22 23:51 07/15/22 00:00 Temperature Pulse Rate 97 97 105 H Respiratory Rate 22 H 22 H Blood Pressure 129/59 L Pulse Oximetry 93 93 Oxygen Delivery High Flow Nasal Cannula Oxygen Flow Rate 8 07/15/22 00:00 07/15/22 02:00 07/15/22 02:00 Temperature 37.4 C Pulse Rate 105 H 101 H 101 H Respiratory Rate 22 H 21 H Blood Pressure 128/64 126/99 H Pulse Oximetry 95 95 Oxygen Delivery Oxygen Flow Rate 07/15/22 03:52 07/15/22 04:00 07/15/22 04:00 Temperature 36.9 C Pulse Rate 101 H 99 99 Respiratory Rate 21 H 29 H Blood Pressure 147/64 H Pulse Oximetry 95 96 Oxygen Delivery High Flow Nasal Cannula Oxygen Flow Rate 8 07/15/22 06:00 07/15/22 06:00 07/15/22 09:46 Temperature Pulse Rate 82 82 94 Respiratory Rate 20 25 H Blood Pressure 123/65 Pulse Oximetry 96 94 Oxygen Delivery Nasal Cannula Oxygen Flow Rate 8 07/15/22 09:46 07/15/22 08:00 Temperature Pulse Rate 92 84 Respiratory Rate 22 H Blood Pressure Pulse Oximetry Oxygen Delivery Oxygen Flow Rate Intake/Output Intake/Output: Intake & Output 07/12/22 07/13/22 07/14/22 07/15/22 23:59 23:59 23:59 23:59 Intake Total 1150 1400 220 Output Total 350 375 400 Balance 800 1025 -180 Meds/Results Medications: Active Medications Generic Name Dose Route Start Last Admin Trade Name Jaymeq PRN Reason Stop Dose Admin Acetaminophen 650 mg 07/13/22 13:46 07/15/22 09:17 Acetaminophen 325 Mg Tablet PO 650 mg Q4H PRN Administration Headache, fever, mild pain Albuterol 2.5 mg 07/15/22 09:15 07/15/22 09:43 Albuterol Sulfate Neb 2.
[2022-07-15 12:32] LABS: Cholesterol 99 mg/dL (0-200); HDL Direct 34 mg/dL; Triglycerides 90 mg/dL (<150)
[2022-07-15 13:06] LABS: LDL Cholesterol Direct 38 mg/dL
[2022-07-15 13:31] LABS: Glucose Point of Care 106 mg/dl (65-105)
[2022-07-15] MEDS: busPIRone HCL 10 MG TABLET PO ×2 (13:33→18:51)
--- NOTE | 2022-07-15 15:53 | ECG_ITS ---
Measurements Intervals [place] Rate: 111 P: 81 [place]: 149 QRS: 44 QRSD: 103 T: 125 QT: 326 QTc: 444 Interpretive Statements SINUS TACHYCARDIA ATRIAL PREMATURE COMPLEX ST-T WAVE ABNORMALITY IN ANTEROLATERAL LEADS- CONSIDER ISCHEMIA BASELINE ARTIFACT- I, II, III, AVR, AVL, AVF, V1, V3 ABNORMAL ECG COMPARED TO ECG 07/15/2022 06:47:14 SINUS TACHYCARDIA NOW PRESENT ST-T WAVE ABNORMALITY IN ANTEROLATERAL LEADS- CONSIDER ISCHEMIA NOW PRESENT Electronically Signed On 07-15-2022 16:09:03 HOUSEHOLD APPLIANCE MECHANIC by Jeffrey Dunham D.O.
--- NOTE | 2022-07-15 15:54 | PCOTNOTE ---
Attempted to see pt. for occupational therapy evaluation. Pt. is not appropriate for therapy at this time due to agitation, shortness of breath, and altered mental status. Nursing aware and confirmed. Following.
--- NOTE | 2022-07-15 16:01 | PCPTNOTE ---
Attempted to see pt. for physical therapy evaluation. Pt. is not appropriate for therapy at this time due to agitation, shortness of breath, and altered mental status. Nursing aware and confirmed. Following.
[2022-07-15 16:21] LABS: Alveolar/Arterial O2 Gradient 256.2 mmHg; Base Excess ABG -1.3 mEq/l (+/-2.0); Fractional Inspired Oxygen 52 %; HCO3 ABG 24.2 mEq/l (22.0-26.0); Oxygen Content ABG 14.6 %vol (16.0-22.0); Oxyhemoglobin 91.1 % THb (90.0-100.0); PO2 ABG 65.3 mmHg (80.0-100.0); PO2 FiO2 Ratio Arterial Blood 1.26 %; Total Hemoglobin 11.4 g/dL (12.0-18.0); pH ABG 7.359 (7.350-7.450)
--- NOTE | 2022-07-15 16:30 | WPDCN ---
Assessment and Plan Assessment and plan (1) Acute coronary syndrome: Code(s): I24.9 - Acute ischemic heart disease, unspecified Status: Acute Assessment and Plan: Patient became acutely restless, anxious, and diaphoretic though he was unable to voice a specific concerns; he is not currently having any active symptoms. EKG showed new ST depressions in anterior lateral leads suggestive of ischemia and he has been given aspirin 324 mg, clopidogrel 300 mg, and metoprolol tartrate 25 mg. Troponins are pending. Case was discussed with cushion builder Dr. Martinez, spring tier Dr. Liao, poultry scalder Dr. Rider, and surgeon Dr. Lopez. CT of the chest, abdomen, and pelvis was performed and discussed with the surgeon and he is okay with starting heparin drip with close monitoring. (2) Acute respiratory failure with hypoxia: Code(s): J96.01 - Acute respiratory failure with hypoxia Status: Acute Assessment and Plan: Patient was extubated yesterday and was doing well however he is now back on 8 liters high-flow. Chest x-ray shows congestive changes for which he is being judiciously diuresed. CT of the chest is currently pending to rule out PE. (3) Congestive heart failure: Code(s): I50.9 - Heart failure, unspecified Status: Acute Assessment and Plan: The patient is wheezing and chest x-ray shows evidence of pleural effusions and pulmonary congestion. He received Lasix this morning and I will give him another dose of Lasix this evening. Potassium will be replaced prior to that dose. (4) Anemia: Code(s): D64.9 - Anemia, unspecified Status: Acute Assessment and Plan: Stable. Monitor closely as he is now being started on a heparin drip. Plan Thank you for allowing us to participate in this patient's care. Please do not hesitate to contact us with any questions. Supervising physician for this medical consultation is Dr. Dr. Justine Dominguez. HPI Data of Consult Date/Time: 07/15/22 16:30 Requesting Physician: Dr. Rodolfo Rider MD. Consult Narrative Reason for consult: Change in medical condition. Narrative: This is a pleasant 76-year-old male with history of hypertension, hyperlipidemia, and anemia whom the hospitalist service has been asked to evaluate given a change in medical condition. He had an elective laparoscopic repair of recurrent incisional hernia with mesh per Dr. Marie on 07/13/2022 complicated by intraoperative cardiac arrest. In brief he desaturated during surgery with a drop in his end-tidal CO2 after which he became bradycardic and eventually lost a pulse. He was eventually in PEA arrest and was treated with atropine, phenylephrine, and vasopressin and he had return of spontaneous circulation after very brief CPR with perhaps a total of 40 chest compressions. CTA of the chest was negative for PE but showed small hydropneumothorax on the right, suggestions of small hemopericardium, and suggestions of small perisplenic hemoperitoneum which only very well have been secondary to the brief CPR. Initial echocardiogram showed LV systolic function at the lower limit of normal calculated at 48% though visually estimated at 50 to 55%, grade 1 diastolic dysfunction, no wall motion abnormalities, and trivial pericardial effusion. Repeat limited echo today showed normal LV chamber dimension and function with an EF estimated 60 to 65%, small pericardial effusion, and hypokinesis of the apical inferior wall, basal inferolateral wall, and mid inferior lateral wall. He has since been started on low-dose aspirin and atorvastatin with plans for catheterization versus stress test next week. He was extubated yesterday and has been doing quite well although this morning he was given a dose of Lasix for congestive changes on chest x-ray. In fact he was doing so well that he was going to be downgraded to IMU status though not long prior to transfer he became anxious and restl
[2022-07-15 16:48] LABS: Basophils Percent Auto 0.5 % (0.2-1.2); Eosinophils Percent Auto 0.2 % (0-4.4); Hematocrit 31.7 % (42.0-52.0); Immature Granulocyte Absolute 0.02 K/mm3 (0.00-0.031); Immature Granulocyte Percent A 0.3 % (0-0.5); Lymphocytes Absolute Auto 0.43 K/mm3 (0.9-3.2); Lymphocytes Percent Auto 6.5 % (18.3-44.2); Mean Corpuscular HGB Conc 31.5 g/dl (32-36); Mean Corpuscular Volume 104.6 fl (80-100); Mean Platelet Volume 10.7 fl (7.4-10.4); Monocytes Absolute Auto 0.5 K/mm3 (0.1-0.6); Monocytes Percent Auto 8.2 % (2.6-8.5); Neutrophils Absolute Auto 5.6 K/mm3 (1.3-6.7); Neutrophils Percent Auto 84.3 % (45.5-73.1); Platelet Count Result 179 k/mm3 (150-375); Red Blood Count 3.03 M/mm3 (4.6-6.20); Red Cell Distribution Width 14.2 % (11.5-14.5); White Blood Count 6.6 K/mm3 (4.5-10.0)
[2022-07-15 17:00] LABS: Alanine Aminotransferase 37 U/L (6-50); Albumin Level 4.2 g/dL (3.5-5.1); Alkaline Phosphatase 54 U/L (38-126); Anion Gap 12 mmol/L (8-16); Aspartate Amino Transferase 92 U/L (17-59); Bilirubin,Total 0.8 mg/dL (0.2-1.3); Blood Urea Nitrogen 32 mg/dL (9-20); Calcium 8.5 mg/dL (8.4-10.2); Carbon Dioxide 25 mmol/L (22-30); Chloride 103 mmol/L (98-107); Estimated CRCL calculation 49 ml/min; Estimated Glomerular Filt Rate 54; Glucose 162 mg/dL (65-110); Magnesium 2.1 mg/dL (1.6-2.3); Phosphorus 3.6 mg/dL (2.5-4.5); Potassium 3.8 mmol/L (3.4-5.0); Sodium 140 mmol/L (137-145)
[2022-07-15 17:09] LABS: Device NASAL CANNULA; Modified Allen's Test Pass; Site Drawn RIGHT RADIAL
[2022-07-15 17:27] LABS: NT Pro B Type Natriuretic Pept 11200 pg/mL (5-100)
[2022-07-15 17:27] LABS: Lactic Acid Reflex 1.5 mmol/L (0.7-2.0)
[2022-07-15] MEDS: POTASSIUM CHLORIDE 20 MEQ TABLET 40 MEQ PO (18:36)
[2022-07-15] MEDS: ASPIRIN 81 MG CHEWABLE TABLET 324 MG PO (18:36)
[2022-07-15 20:14] LABS: Basophils Percent Auto 0.3 % (0.2-1.2); Eosinophils Percent Auto 0.1 % (0-4.4); Hematocrit 30.7 % (42.0-52.0); Hemoglobin 9.8 g/dL (14.0-18.0); Immature Granulocyte Absolute 0.04 K/mm3 (0.00-0.031); Immature Granulocyte Percent A 0.6 % (0-0.5); Lymphocytes Absolute Auto 0.18 K/mm3 (0.9-3.2); Lymphocytes Percent Auto 2.7 % (18.3-44.2); Mean Corpuscular HGB Conc 31.9 g/dl (32-36); Mean Corpuscular Hemoglobin 33.1 pg (26-34); Mean Corpuscular Volume 103.7 fl (80-100); Mean Platelet Volume 10.5 fl (7.4-10.4); Monocytes Absolute Auto 0.7 K/mm3 (0.1-0.6); Neutrophils Absolute Auto 5.8 K/mm3 (1.3-6.7); Neutrophils Percent Auto 86.3 % (45.5-73.1); Platelet Count Result 160 k/mm3 (150-375); Red Blood Count 2.96 M/mm3 (4.6-6.20); White Blood Count 6.7 K/mm3 (4.5-10.0)
[2022-07-15 20:25] LABS: Ovalocytes 1+ (NORMAL); Platelet Estimate Adequate (Adequate); Schistocytes None Seen (NORMAL)
[2022-07-15 20:26] LABS: INR 1.3; Prothrombin Time 15.8 Seconds (11.1-14.7)
[2022-07-15 20:27] LABS: Partial Thromboplastin Time 40.3 SECONDS (22.3-36.8)
[2022-07-15] MEDS: HEPARIN SODIUM 5,000 UNITS/ML VIAL 4000 UNITS IV PUSH (20:37)
--- NOTE | 2022-07-15 20:47 | ECG_ITS ---
Measurements Intervals [place] Rate: 92 P: 62 [place]: 149 QRS: 9 QRSD: 97 T: 46 QT: 352 QTc: 436 Interpretive Statements SINUS RHYTHM ST ELEVATION IN ANTEROLAT/HIGH LAT LEADS- PROBABLY EARLY REPOLARIZATION OR P PERICARDITIS BASELINE WANDER- II, III, AVR, AVF ABNORMAL ECG COMPARED TO ECG 07/15/2022 16:01:00 [address] NOW PRESENT [address] ELEVATION IN ANTEROLAT/HIGH LAT LEADS- PROBABLY EARLY REPOLARIZATION OR PERICARDITIS NOW PRESENT Electronically Signed On 07-16-2022 10:13:03 LAMBSKIN TRIMMER by Jeffrey Dunham D.O.
[2022-07-15] MEDS: HEPARIN SOD/D5W 100 UNITS/ML 25,000 UNITS/250 ML BAG 10 UNITS IV CONT (20:56)
[2022-07-15] MEDS: METOPROLOL TARTRATE 25 MG TABLET PO (21:07)
[2022-07-15] MEDS: CARBIDOPA/LEVODOPA 25/100 MG TABLET 1 TABLET PO (21:08)
[2022-07-15] MEDS: lamoTRIgine 100 MG TABLET 200 MG PO (21:08)
[2022-07-15] MEDS: rOPINIRole HCL 0.5 MG TABLET PO (21:08)
[2022-07-15] MEDS: CLOPIDOGREL BISULFATE 300 MG TABLET PO (21:53)
--- NOTE | 2022-07-15 23:44 | PC.NURSE ---
Madalyn PA aware of troponin levels and has spoken with both Dr. Liao and Dr. Martinez. EKG obtained and also reviewed with cardiology.
[2022-07-16] VITALS (27 sets, daily range): BP systolic 84–156; BP diastolic 44–98; PULSE 53–119; RESP 11–37; TEMP 36.1–36.8; O2SAT 75–100
--- NOTE | 2022-07-16 | ECHOL_ITS ---
Patient Info Name: Geovanny Cuevas Age: 76 years : 1945 Gender: Male Ht: 69 in Wt: 203 lbs BSA: 2.14 m2 HR: 76 bpm BP: 99 / 70 mmHg Heart Rhythm: Sinus Rhythm Technical Quality: Fair Exam Date: 07/16/2022 7:11 AM Exam Location: [facility] Pulmonary Patient Status: Inpatient Admit Date: 07/13/2022 Staff Ordering Physician: Madalyn Mishra PA-C Decision Support Analyst: CARTER Attending Provider: Michael Bernal MD Referring Physician: Danica MCKINNEY; Exam Type: CA echo limited Study Info Indications I23.0 - Hemopericardium as current complication following acute myocardial infarction Limited two-dimensional transthoracic echocardiogram is performed. Summary 1. This was a limited study done to evaluate pericardial effusion. 2. There is small pericardial effusion. Unchanged compared to prior study. 3. Left pleural effusion is seen. Left Ventricle Left ventricular chamber dimension is normal. Left ventricular systolic function is normal, estimated at 60-65%. There is no increased left ventricular wall thickness. Right Ventricle Right ventricular chamber dimension is normal. Right ventricular systolic function is normal. Left Atria Left atrial chamber dimension is normal. Right Atria Right atrial chamber dimension is normal. Aortic Valve The aortic valve is not well visualized. Pulmonic Valve The pulmonic valve is not well visualized. Mitral Valve The mitral valve has calcified annulus. Tricuspid Valve The tricuspid valve leaflets are normal. Pericardium/Pleural Left pleural effusion is seen. There is small pericardial effusion. Unchanged compared to prior study. Aorta The aortic root size at the sinus of Valsalva is not well visualized. Report Signatures
[2022-07-16 00:44] LABS: Glucose Point of Care 165 mg/dl (65-105)
[2022-07-16] MEDS: MORPHINE SULFATE (*CRX) 4 MG/ML INJ IV PUSH ×2 (01:04→11:06)
--- NOTE | 2022-07-16 01:05 | ECG_ITS ---
Measurements Intervals [place] Rate: 164 P: [place]: 0 QRS: 50 QRSD: 119 T: 96 QT: 253 QTc: 418 Interpretive Statements ATRIAL FIBRILLATION WITH RAPID VENTRICULAR RESPONSE ST-T WAVE ABNORMALITY IN ANTEROLAT/HIGH LAT LEADS- CONSIDER ISCHEMIA BASELINE WANDER- I, II, III, AVR, AVL, AVF, V1-V6 ABNORMAL ECG COMPARED TO ECG 07/15/2022 20:51:35 ATRIAL FIBRILLATION NOW PRESENT ST-T WAVE ABNORMALITY IN ANTEROLAT/HIGH LAT LEADS- CONSIDER ISCHEMIA NOW PRESENT Electronically Signed On 07-16-2022 10:14:30 DESIGN TRANSFERRER by Jeffrey Dunham D.O.
[2022-07-16] MEDS: LORazepam INJ (*CRX) 2 MG/ML VIAL 0.5 MG IV PUSH (01:16)
[2022-07-16] MEDS: HALOPERIDOL LACTATE 5 MG/ML VIAL IM (01:50)
[2022-07-16] MEDS: LORazepam INJ (*CRX) 2 MG/ML VIAL IV PUSH ×3 (02:08→18:47)
--- NOTE | 2022-07-16 02:13 | ECG_ITS ---
Measurements Intervals [place] Rate: 143 P: [place]: 0 QRS: 43 QRSD: 114 T: 112 QT: 254 QTc: 392 Interpretive Statements ATRIAL FIBRILLATION WITH RAPID VENTRICULAR RESPONSE ST-T WAVE ABNORMALITY IN ANTEROLAT/HIGH LAT LEADS- CONSIDER ISCHEMIA BASELINE WANDER- I, II, III, AVR, AVL, AVF, V1-V3 ABNORMAL ECG COMPARED TO ECG 07/16/2022 02:15:38 NO SIGNIFICANT CHANGES Electronically Signed On 07-16-2022 10:15:44 BATCH PLANT OPERATOR by Jeffrey Dunham D.O.
--- NOTE | 2022-07-16 02:26 | ECG_ITS ---
Measurements Intervals [place] Rate: 88 P: 57 [place]: 108 QRS: 14 QRSD: 101 T: 34 QT: 364 QTc: 441 Interpretive Statements SINUS RHYTHM WITH SHORT [place] INTERVAL LEFT ATRIAL ENLARGEMENT ST-T WAVE ABNORMALITY IN ANTEROLAT/HIGH LAT LEADS- CONSIDER ISCHEMIA BASELINE WANDER- II, III, AVR, AVF ABNORMAL ECG COMPARED TO ECG 07/16/2022 02:16:28 SINUS RHYTHM NOW PRESENT Electronically Signed On 07-16-2022 10:17:05 DUPLICATING MACHINE MECHANIC by Jeffrey Dunham D.O.
[2022-07-16 02:30] LABS: Alveolar/Arterial O2 Gradient 549.2 mmHg; Carboxyhemoglobin 0.3 % THb (0-2.0); Fractional Inspired Oxygen 100 %; HCO3 ABG 16.8 mEq/l (22.0-26.0); Methemoglobin ABG 0.3 %THb (0-1.5); Oxygen Content ABG 15.7 %vol (16.0-22.0); Oxygen Saturation ABG 97.4 % (95.0-100.0); PCO2 ABG 45.3 mmHg (35.0-45.0); PO2 ABG 118.5 mmHg (80.0-100.0); PO2 FiO2 Ratio Arterial Blood 1.18 %; Reduced Hemoglobin 3.4 %THb (0-5.0); Total Hemoglobin 11.5 g/dL (12.0-18.0)
[2022-07-16 02:32] LABS: Device NON-REBREATHER MASK; Modified Allen's Test Pass; Site Drawn RIGHT RADIAL; pH ABG 7.187 (7.350-7.450)
--- NOTE | 2022-07-16 02:35 | PCRCNOTE ---
Patient desatted into the mid 70's due to an anxious episode, O2 was increased to 7L from 4L, issue did not improve, so a non rebreather mask was applied. ABG per order by Dr. Tilley was obtained.
[2022-07-16 02:51] LABS: Basophils Percent Auto 0.4 % (0.2-1.2); Eosinophils Percent Auto 0.2 % (0-4.4); Hematocrit 31.6 % (42.0-52.0); Hemoglobin 9.8 g/dL (14.0-18.0); Immature Granulocyte Absolute 0.01 K/mm3 (0.00-0.031); Immature Granulocyte Percent A 0.2 % (0-0.5); Lymphocytes Absolute Auto 0.27 K/mm3 (0.9-3.2); Lymphocytes Percent Auto 5.4 % (18.3-44.2); Mean Corpuscular Volume 106.4 fl (80-100); Mean Platelet Volume 10.5 fl (7.4-10.4); Monocytes Absolute Auto 0.6 K/mm3 (0.1-0.6); Monocytes Percent Auto 12.5 % (2.6-8.5); Neutrophils Percent Auto 81.3 % (45.5-73.1); Platelet Count Result 173 k/mm3 (150-375); Red Blood Count 2.97 M/mm3 (4.6-6.20)
[2022-07-16 03:02] LABS: Partial Thromboplastin Time 156.4 SECONDS (22.3-36.8)
--- NOTE | 2022-07-16 03:04 | PM.EVENT ---
Event Note Event Note Event Note: Nursing staff called me into the room because the patient was thrashing and restless. The patient kept stating that he could not breathe. We could not pickling solution maker a good pulse ox because the patient would not stay still. The patient was actively in restraints and trying to climb over the foot of the bed. His skin was mottled, cold and diaphoretic. He was denying chest pain but was not able to be redirected. solution specialist was difficult to read due to patient's agitation his leads were disrupted. Eventually leads were placed back on and patient was in with like AFib but once appropriate sedation was achieved the patient returned to sinus rhythm. Once the patient was placed on non-rebreather we did pickling solution maker a pulse ox that was in the 90s to 100 range. The patient's oxygen had been increased to 7 L nasal cannula earlier in the evening when he had a similar episode of agitation. After the patient had calmed down after receiving 5 mg of IM Haldol and a total of 4 mg of IV Ativan were able to obtain an ABG which demonstrated pH of 7.187 pCO2 of 45 and PO2 of 118. The patient's prior PO2 is been in the 60s earlier in the day on 8 L nasal cannula. PCO2 was similar to prior. PH was significantly worse pH 7.187. After patient was no longer thrashing and was resting comfortably his mottling improved significantly. He was still mildly diaphoretic. Repeat EKG was performed during the patient's event that demonstrated ST depression but the rhythm was to her retic to accurately evaluate. Once the patient had settled down repeat EKG demonstrated normal sinus rhythm with known ST depression similar to prior in the evening. Stat chest x-ray demonstrated worsening pulmonary edema compared to 1 earlier in the day but technique very greatly. After patient calmed down and was resting mid no longer had significant tachypnea or work of breathing. He had faint crackles. The patient had significant urine output after he received Lasix earlier in the afternoon. Am reluctant to give the patient additional Lasix given the fact that we know he has severe metabolic acidosis until we have the repeat BMP returned and will also check a lactic acid. Assessment agitation/combative--due to a combination of panic disorder and psychiatric illness worsened by acute respiratory failure with worsening shortness of breath and hypoxia Pulmonary edema--will re-evaluate additional Lasix after repeat labs returned Hypoxia--will wean oxygen back to nasal cannula and wean down as tolerated. Lasix as discussed above. Patient is having elevated temperatures over the last 24 hours he had temperature of 100? just now he was 99.1. Will check COVID, flu and blood cultures. Patient's was updated as to events overnight and plan of care. 70 minutes spent in critical care activities. Due to a high probability of clinically significant, life threatening deterioration, the patient required my highest level of preparedness to intervene emergently and I personally spent this critical care time directly and personally managing the patient. This critical care time included obtaining a history; examining the patient; pulse oximetry; ordering and review of studies; arranging urgent treatment with development of a management plan; evaluation of patient's response to treatment; frequent reassessment; and discussions with other providers. It was exclusive of separately billable procedures and treating other patients and teaching time. Please see Assessment and Plan section and the rest of the note for further information on patient assessment and treatment.
[2022-07-16 03:19] LABS: Albumin Level 4.1 g/dL (3.5-5.1); Alkaline Phosphatase 47 U/L (38-126); Anion Gap 20 mmol/L (8-16); Aspartate Amino Transferase 86 U/L (17-59); Bilirubin,Total 0.7 mg/dL (0.2-1.3); Blood Urea Nitrogen 32 mg/dL (9-20); Calcium 8.2 mg/dL (8.4-10.2); Carbon Dioxide 19 mmol/L (22-30); Chloride 103 mmol/L (98-107); Estimated CRCL calculation 45 ml/min; Estimated Glomerular Filt Rate 49; Glucose 226 mg/dL (65-110); Magnesium 2.4 mg/dL (1.6-2.3); Phosphorus 4.6 mg/dL (2.5-4.5); Potassium 3.9 mmol/L (3.4-5.0); Sodium 142 mmol/L (137-145)
[2022-07-16 03:23] LABS: Lactic Acid Reflex 8.1 mmol/L (0.7-2.0)
[2022-07-16 03:25] LABS: Alanine Aminotransferase 30 U/L (6-50)
[2022-07-16 03:49] LABS: Hematocrit 29.9 % (42.0-52.0); Hemoglobin 9.6 g/dL (14.0-18.0)
[2022-07-16 04:07] LABS: Burr Cells 2+ (NORMAL); Macrocytosis 1+ (NORMAL); Platelet Estimate Adequate (Adequate); Schistocytes None Seen (NORMAL)
[2022-07-16 04:20] LABS: Influenza A QL RT-PCR Negative (Negative); Influenza B QL RT-PCR Negative (Negative); SARS-CoV-2 RNA PCR Negative
[2022-07-16] MEDS: dexmedeTOMIDine 400 MCG/100 ML 400 MCG/100 ML BAG IV CONT (04:59)
[2022-07-16] MEDS: CENTRAL LINE FLUSH 10 ML IV PUSH ×3 (05:32→20:05)
[2022-07-16 05:48] LABS: Reflex Lactic Acid Yes or No Add Lactic
[2022-07-16 06:04] LABS: Glucose Point of Care 158 mg/dl (65-105)
[2022-07-16 06:18] LABS: Lactic Acid 1.3 mmol/L (0.7-2.0)
[2022-07-16] MEDS: IPRATROPIUM BR 0.02% INH SOLN 0.5 MG/2.5 ML VIAL INHALATION (06:39)
--- NOTE | 2022-07-16 09:28 | PCPTNOTE ---
Patient not appropriate for therapy at this time per nursing. Will try again tomorrow.
--- NOTE | 2022-07-16 10:14 | WPDINTPN ---
Progress Note: A&P Assessment and Plan (1) Cardiac arrest: Code(s): I46.9 - Cardiac arrest, cause unspecified Status: Acute Assessment and Plan: Unknown etiology EKG shows sinus rhythm with sinus arrhythmia T they have depression in anterior leads. Patient had recent Holter monitoring as an outpatient which showed PACs and a brief run of PSVT. Serial troponin was done which were elevated and then have plateaued Patient was evaluated by Cardiology Echocardiogram showed 1. Left ventricular size with [id number] concentric left ventri cular hypertrophy.? Left ventricular systolic function of the lower limit of normal, calculated 48% ejection fraction, visually appears more in the 50-55% range. No segmental wall motion abnormalities.? Grade 1 diastolic dysfunction is present. ? 2. Left atrial chamber dimension is mildly enlarged. ? 3. There is trivial pericardial effusion. ? 4. No significant valve disease. ? 5. Normal sinus rhythm. CT angiogram of lung negative for PE but did show small hydropneumothorax on the right, hemopericardium and small hemoperitoneum Patient has acute coronary syndrome and on treatment for non STEMI Plan for ischemic workup by Cardiology (2) Acute coronary syndrome: Code(s): I24.9 - Acute ischemic heart disease, unspecified Status: Acute Assessment and Plan: Patient has abnormal EKG, elevated troponin Cardiology is following and aware Patient currently on dual antiplatelet therapy statin and heparin infusion Limited echo was done yesterday and report is pending Further management per Cardiology (3) Congestive heart failure: Code(s): I50.9 - Heart failure, unspecified Status: Acute Assessment and Plan: Repeat echo done yesterday showed Summary ? 1. Left ventricular chamber dimension is normal. ? 2. Left ventricular systolic function is normal, estimated at 60-65%. ? 3. There is no increased left ventricular wall thickness. ? 4. The apical inferior wall, basal inferolateral wall, and mid inferolateral wall are hypokinetic. ? 5. There is small pericardial effusion. Patient received Lasix overnight. Hold further Lasix at this time due to worsening renal function (4) Hemopericardium: Code(s): I31.2 - Hemopericardium, not elsewhere classified Status: Acute Assessment and Plan: CTA suggest small hemopericardium which could be from CPR Continue to hold Hold Lovenox Initial and repeat Echo was done and showed trivial pericardial effusion (5) Acute respiratory failure: Code(s): J96.00 - Acute respiratory failure, unspecified whether with hypoxia or hypercapnia Status: Acute Assessment and Plan: Acute Respiratory failure secondary to cardiac arrest Extubated 07/14 Chest x-ray shows pulmonary edema -patient was given the Lasix IV On exam patient has wheezing -continue bronchodilators Hold further diuretics due to increasing creatinine Patient saturating adequately at nasal cannula If deteriorates he may need re-intubation No detectable pneumothorax on chest x-ray that was seen on CT chest initially after his cardiac arrest CTA lung was negative for PE but did show Small right hydropneumothorax. Small left pleural effusion.. 07/15 repeat CTA lung 1. No evident pulmonary embolism. Sensitivity decreased in the segmental pulmonary arteries and nondiagnostic in many of the subsegmental pulmonary arteries due to primarily to respiratory motion. 2. Persistent small bilateral pleural effusions with moderate atelectasis predominantly in the dependent bilateral upper and lower lobes. (6) Acute kidney injury: Code(s): N17.9 - Acute kidney failure, unspecified Status: Acute Assessment and Plan: Likely secondary to cardiac arrest and episode of hypertension Creatinine increased 1.6 Mild rhabdomyolysis CK level 338 Patient was treated with IV fluids and creatinine improved But now created back up to 1.4 likel
--- NOTE | 2022-07-16 10:22 | PCOTNOTE ---
Attempted occupational therapy evaluation, patient not appropriate for therapy at this time per nursing. Following.
--- NOTE | 2022-07-16 10:29 | PM.PNCARD ---
Progress Note: A&P Assessment and Plan (1) Acute coronary syndrome: Code(s): I24.9 - Acute ischemic heart disease, unspecified Status: Acute (2) Cardiac arrest: Code(s): I46.9 - Cardiac arrest, cause unspecified Status: Acute (3) Hemopericardium: Code(s): I31.2 - Hemopericardium, not elsewhere classified Status: Acute (4) Atrial fibrillation: Code(s): I48.91 - Unspecified atrial fibrillation Status: Acute Plan Acute coronary syndrome with peak troponin of 11.1 and EKG showing ischemic changes. Patient started on Heparin drip, loaded with ASA 324mg and Plavix 300mg, along with beta-ivis. Currently stable from a cardiac standpoint - no indication for emergent or urgent cardiac cath. Continue with Heparin drip. Continue ASA 81mg once daily. Continue Atorvastatin. Will start Plavix 75mg once daily today. Continue beta-ivis. He had a very small hemopericardium likely the result from CPR. Given that he is now on Heparin drip and DAPT, will obtain limited echo this AM to make sure the effusion has not worsened. He will need a cardiac cath for ischemic evaluation. Possibly on Monday if tolerating Heparin drip and DAPT without any bleeding issues and if his mental status improves to where he can remain calm and follow commands. For his atrial fibrillation, continue to monitor on tele. He is currently in sinus. Continue with Heparin drip and beta ivis. Echo 07/13: 1. Left ventricular size with [id number] concentric left ventricular hypertrophy.? Left ventricular systolic function of the lower limit of normal, calculated 48% ejection fraction, visually appears more in the 50-55% range. No segmental wall motion abnormalities.? Grade 1 diastolic dysfunction is present. 2. Left atrial chamber dimension is mildly enlarged. 3. There is trivial pericardial effusion. 4. No significant valve disease. 5. Normal sinus rhythm. Echo 07/15: 1. Left ventricular chamber dimension is normal. 2. Left ventricular systolic function is normal, estimated at 60-65%. 3. There is no increased left ventricular wall thickness. 4. The apical inferior wall, basal inferolateral wall, and mid inferolateral wall are hypokinetic. 5. There is small pericardial effusion. Subjective Date/time seen: 07/16/22 10:29 Interval history: Reason for visit: Cardiac arrest, Acute coronary syndrome Interval history: 76-year-old who had bradycardia and arrest in OR suite during hernia surgery.? Date of service 07/14/2022:? No significant bradycardia overnight.? He is awake alert denies any chest pain.? He is still on ventilator but they are weaning to extubate. Follow-up note/date of service 07/15/2022: Feels okay.? Has some soreness in his abdomen.? No syncope, arrhythmia, chest pain or shortness of breath Date of service 07/16/2022: Yesterday afternoon, patient became acutely restless, anxious, and diaphoretic. EKG obtained at that time showed ST depressions in the lateral leads concerning for ischemia. Patient started on Heparin drip, loaded with ASA 324mg and Plavix 300mg, along with beta-ivis. Troponins were checked and ended up peaking at 11.1. Later in the evening/overnight this morning, patient again became restless and was thrashing. Skin became mottled, cold, and diaphoretic. EKGs showing atrial flutter. Patient given Haldol and Ativan with improvement in agitation. This morning, he is on Precedex infusion, therefore, does not answer questions. Review of Systems Review of Systems: ROS unobtainable: Yes unobtainable due to mental status Exam Const: General: comfortable Other: Sedated HENMT: Mouth: Yes moist mucous membranes Eyes: General: appearance normal, both eyes and all related structures Neck: Neck: supple Resp: Effort & Inspection: normal respiratory effort Auscultation: clear to auscultation bilaterally Cardio: Rate: regular rate Rhythm: regular rhythm GI: Inspection: n
[2022-07-16 10:52] LABS: Partial Thromboplastin Time 62.8 SECONDS (22.3-36.8)
[2022-07-16 11:03] LABS: Creatine Kinase 710 U/L (55-170)
[2022-07-16] MEDS: CLOPIDOGREL BISULFATE 75 MG TABLET PO (11:40)
[2022-07-16] MEDS: SODIUM BICARBONATE TAB 650 MG TABLET 1300 MG FEED TUBE ×2 (11:40→16:27)
[2022-07-16] MEDS: ATORVASTATIN 20 MG TABLET PO (11:40)
[2022-07-16] MEDS: METOPROLOL TARTRATE 25 MG TABLET PO ×2 (11:40→20:04)
[2022-07-16] MEDS: NOREPINEPHRINE 8 MG/D5W 250 ML 8 MG/250 ML BAG 9.38 MG IV CONT (11:40)
[2022-07-16] MEDS: ASPIRIN 81 MG ENTERIC TABLET PO (11:40)
[2022-07-16] MEDS: buPROPion HCL XL (24 HR) 150 MG TABCR PO (11:40)
[2022-07-16] MEDS: FAMOTIDINE 20 MG/2 ML VIAL IV PUSH ×2 (11:40→20:05)
[2022-07-16] MEDS: HEPARIN SODIUM 5,000 UNITS/ML VIAL 3000 UNITS IV PUSH ×2 (11:43→20:02)
--- NOTE | 2022-07-16 11:53 | PM.PNGS ---
Progress Note: A&P Assessment and Plan (1) Status post hernia repair: Code(s): Z98.890 - Other specified postprocedural states; Z87.19 - Personal history of other diseases of the digestive system Status: Acute Assessment and Plan: exam benign, CT c postop changes, NG placed given confusion, will cont to follow for now (2) Acute coronary syndrome: Code(s): I24.9 - Acute ischemic heart disease, unspecified Status: Acute Assessment and Plan: d/w cardiology, will need cardiac cath, planned for 07/18, cont mgmt per cardiology and retail stocker Subjective Subjective Date/Time Seen: 07/16/22 11:53 events noted, very confused and combative, now sedated Review of Systems Review of Systems: ROS unobtainable: Yes unobtainable due to medical condition and unobtainable due to mental status Exam Const: General: no acute distress, ill appearing, lethargic and patient obtunded Resp: Auscultation: diminished lung sounds Cardio: Rate: regular rate Rhythm: regular rhythm GI: Inspection: normal to inspection, distended and incision GI Palp: No abdominal tenderness, Yes Soft to palpation, No Firmness to palpation present (GI), No Tenderness to palpation present (GI), No Guarding due to palpation present (GI) and No Rigid due to palpation Objective Data Vital Signs Vital Signs: Vital Signs - 24 hr 07/15/22 16:03 07/15/22 12:35 07/15/22 13:52 Temperature Pulse Rate 110 H 81 89 Respiratory Rate 24 H 15 17 Blood Pressure Pulse Oximetry 96 97 Oxygen Delivery Oxygen Flow Rate 07/15/22 12:00 07/15/22 14:00 07/15/22 14:00 Temperature Pulse Rate 95 93 93 Respiratory Rate 20 Blood Pressure 143/67 H Pulse Oximetry 92 Oxygen Delivery Oxygen Flow Rate 07/15/22 16:00 07/15/22 16:00 07/15/22 16:00 Temperature Pulse Rate 109 H 109 H 95 Respiratory Rate 22 H 22 H Blood Pressure 159/73 H Pulse Oximetry 99 99 Oxygen Delivery Nasal Cannula Oxygen Flow Rate 8 07/15/22 16:19 07/15/22 12:00 07/15/22 18:00 Temperature Pulse Rate 95 95 93 Respiratory Rate 22 H 20 Blood Pressure Pulse Oximetry 97 Oxygen Delivery Nasal Cannula Oxygen Flow Rate 4 07/15/22 18:00 07/15/22 20:00 07/15/22 21:07 Temperature 37.3 C Pulse Rate 93 92 94 Respiratory Rate 18 18 Blood Pressure 121/69 120/64 Pulse Oximetry 93 92 Oxygen Delivery Oxygen Flow Rate 07/15/22 20:00 07/15/22 20:00 07/15/22 21:00 Temperature Pulse Rate 97 96 Respiratory Rate 20 Blood Pressure 161/77 H Pulse Oximetry 92 96 Oxygen Delivery Nasal Cannula Oxygen Flow Rate 4 07/15/22 22:00 07/15/22 23:14 07/15/22 20:20 Temperature Pulse Rate 103 H 87 95 Respiratory Rate 20 Blood Pressure 135/70 Pulse Oximetry 95 Oxygen Delivery Nasal Cannula Oxygen Flow Rate 4 07/16/22 02:34 07/16/22 00:00 07/16/22 00:00 Temperature 36.8 C Pulse Rate 91 Respiratory Rate 24 H Blood Pressure 138/66 Pulse Oximetry 97 92 86 L Oxygen Delivery High Flow Nasal Cannula Nasal Cannula Oxygen Flow Rate 7 4 07/16/22 04:59 07/16/22 02:00 07/16/22 00:00 Temperature Pulse Rate 77 119 H 79 Respiratory Rate 18 37 H Blood Pressure 155/98 H Pulse Oximetry 75 L Oxygen Delivery Oxygen Flow Rate 07/16/22 02:00 07/16/22 04:00 07/16/22 04:30 Temperature 36.1 C L Pulse Rate 109 H 75 Respiratory Rate 24 H Blood Pressure 126/64 Pulse Oximetry 98 97 Oxygen Delivery Nasal Cannula Oxygen Flow Rate 4 07/16/22 06:00 07/16/22 06:39 07/16/22 06:46 Temperature Pulse Rate 67 65 66 Respiratory Rate 19 17 13 Blood Pressure 118/53 L Pulse Oximetry 100 Oxygen Delivery Oxygen Flow Rate 07/16/22 04:00 07/16/22 06:00 07/16/22 08:00 Temperature 36.4 C L Pulse Rate 74 67 79 Respiratory Rate 14 Blood Pressure 102/59 L Pulse Oximetry 98 Oxygen Delivery Oxygen Flow Rate 07/16/22 10:0
[2022-07-16 12:44] LABS: Glucose Point of Care 122 mg/dl (65-105)
--- NOTE | 2022-07-16 13:47 | PM.IMPN ---
Progress Note: A&P Assessment and Plan (1) Acute coronary syndrome: Code(s): I24.9 - Acute ischemic heart disease, unspecified Status: Acute Assessment and Plan: Patient became acutely restless, anxious, and diaphoretic though he was unable to voice a specific concerns; he is not currently having any active symptoms. EKG showed new ST depressions in anterior lateral leads suggestive of ischemia and he has been given aspirin 324 mg, clopidogrel 300 mg, and metoprolol tartrate 25 mg. Troponins are pending. Case was discussed with lease administration analyst Dr. Martinez, restaurant host/hostess Dr. Liao, amalgamator Dr. Rider, and surgeon Dr. Lopez. CT of the chest, abdomen, and pelvis was performed and discussed with the surgeon and he is okay with starting heparin drip with close monitoring. 07/16/2022 interval history: currently patient is quite agitated and placed under soft restrain to prevent removal IVs and NGtube, seen by general surgeon and recommended conservatively monitor, Patient with acute coronary syndrome with peak troponin of 11.1 and ischemia present on EKG, seen by restaurant host/hostess and placed patient on heparin drip, started patient on aspirin 324mg, Plavix 300mg and metoprolol tartrate 25mg BID, patient will need lexiscan or cardiac cath for further evaluation, patient is placed on Zosyn, will follow up on blood culture, patient is seen by amalgamator and appreciate. (2) Acute respiratory failure with hypoxia: Code(s): J96.01 - Acute respiratory failure with hypoxia Status: Acute Assessment and Plan: Patient was extubated yesterday and was doing well however he is now back on 8 liters high-flow. Chest x-ray shows congestive changes for which he is being judiciously diuresed. CT of the chest is currently pending to rule out PE. (3) Congestive heart failure: Code(s): I50.9 - Heart failure, unspecified Status: Acute Assessment and Plan: The patient is wheezing and chest x-ray shows evidence of pleural effusions and pulmonary congestion. He received Lasix this morning and I will give him another dose of Lasix this evening. Potassium will be replaced prior to that dose. (4) Anemia: Code(s): D64.9 - Anemia, unspecified Status: Acute Assessment and Plan: Stable. Monitor closely as he is now being started on a heparin drip. (5) Recurrent incisional hernia: Code(s): K43.2 - Incisional hernia without obstruction or gangrene Status: Chronic (6) Acute respiratory failure: Code(s): J96.00 - Acute respiratory failure, unspecified whether with hypoxia or hypercapnia Status: Acute (7) Cardiac arrest: Code(s): I46.9 - Cardiac arrest, cause unspecified Status: Acute (8) Hyperglycemia: Code(s): R73.9 - Hyperglycemia, unspecified Status: Acute (9) Lactic acidosis: Code(s): E87.20 - Acidosis, unspecified Status: Acute (10) Hypotension: Code(s): I95.9 - Hypotension, unspecified Status: Acute (11) Hemopericardium: Code(s): I31.2 - Hemopericardium, not elsewhere classified Status: Acute (12) Hemoperitoneum: Code(s): K66.1 - Hemoperitoneum Status: Acute (13) Acute kidney injury: Code(s): N17.9 - Acute kidney failure, unspecified Status: Acute (14) Delirium: Code(s): R41.0 - Disorientation, unspecified Status: Acute Plan Thank you for allowing us to participate in this patient's care. Please do not hesitate to contact us with any questions. Supervising physician for this medical consultation is Dr. Dr. Justine Dominguez. Subjective Date/time seen: 07/16/22 13:47 Consultation Narrative: This is a pleasant 76-year-old male with history of hypertension, hyperlipidemia, and anemia whom the hospitalist service has been asked to evaluate given a change in medical condition. He had an elective laparoscopic repair of recurrent incisional h
[2022-07-16] MEDS: dexmedeTOMIDine 400 MCG/100 ML 400 MCG/100 ML BAG 23.03 MCG IV CONT (14:16)
[2022-07-16 15:05] LABS: Hematocrit 30.6 % (42.0-52.0)
[2022-07-16 15:14] LABS: Anion Gap 9 mmol/L (8-16); Blood Urea Nitrogen 39 mg/dL (9-20); Calcium 8.7 mg/dL (8.4-10.2); Carbon Dioxide 26 mmol/L (22-30); Chloride 107 mmol/L (98-107); Estimated CRCL calculation 43 ml/min; Estimated Glomerular Filt Rate 54; Glucose 142 mg/dL (65-110); Potassium 3.8 mmol/L (3.4-5.0); Sodium 142 mmol/L (137-145)
[2022-07-16 17:12] LABS: Glucose Point of Care 132 mg/dl (65-105)
[2022-07-16 18:31] LABS: Glucose Point of Care 140 mg/dl (65-105)
[2022-07-16] MEDS: MORPHINE SULFATE (*CRX) 2 MG/ML INJ IV PUSH (18:47)
[2022-07-16] MEDS: dexmedeTOMIDine 400 MCG/100 ML 400 MCG/100 ML BAG 27.63 MCG IV CONT (18:52)
[2022-07-16 19:20] LABS: Partial Thromboplastin Time 67.5 SECONDS (22.3-36.8)
[2022-07-16] MEDS: lamoTRIgine 100 MG TABLET 200 MG PO (20:05)
[2022-07-16] MEDS: CARBIDOPA/LEVODOPA 25/100 MG TABLET 1 TABLET PO (20:05)
[2022-07-16] MEDS: ALBUTEROL SULFATE NEB 2.5 MG/3 ML INH INHALATION (20:16)
[2022-07-16] MEDS: dexmedeTOMIDine 400 MCG/100 ML 400 MCG/100 ML BAG 29.93 MCG IV CONT (20:58)
[2022-07-16 21:47] LABS: Alveolar/Arterial O2 Gradient 93.8 mmHg; Base Excess ABG 4.8 mEq/l (+/-2.0); Fractional Inspired Oxygen 28 %; Oxygen Content ABG 13.5 %vol (16.0-22.0); Oxygen Saturation ABG 94.1 % (95.0-100.0); PCO2 ABG 36.1 mmHg (35.0-45.0); PO2 ABG 63.2 mmHg (80.0-100.0); PO2 FiO2 Ratio Arterial Blood 2.26 %; Total Hemoglobin 10.4 g/dL (12.0-18.0)
[2022-07-16 21:51] LABS: pH ABG 7.508 (7.350-7.450)
[2022-07-16 21:52] LABS: Device NASAL CANNULA; Modified Allen's Test Unable to perform; Site Drawn LEFT RADIAL
[2022-07-16 21:56] LABS: Anion Gap 11 mmol/L (8-16); Blood Urea Nitrogen 37 mg/dL (9-20); Calcium 8.4 mg/dL (8.4-10.2); Carbon Dioxide 26 mmol/L (22-30); Chloride 106 mmol/L (98-107); Estimated CRCL calculation 51 ml/min; Estimated Glomerular Filt Rate > 60; Glucose 149 mg/dL (65-110); Potassium 3.6 mmol/L (3.4-5.0); Sodium 143 mmol/L (137-145)
[2022-07-17] VITALS (33 sets, daily range): BP systolic 106–148; BP diastolic 42–94; PULSE 47–118; RESP 8–29; TEMP 35.5–38.4; O2SAT 96–100
[2022-07-17] MEDS: dexmedeTOMIDine 400 MCG/100 ML 400 MCG/100 ML BAG 29.93 MCG IV CONT ×2 (00:13→03:51)
[2022-07-17] MEDS: HEPARIN SOD/D5W 100 UNITS/ML 25,000 UNITS/250 ML BAG 12 UNITS IV CONT (00:13)
[2022-07-17 00:34] LABS: Glucose Point of Care 148 mg/dl (65-105)
[2022-07-17 02:25] LABS: Partial Thromboplastin Time 135.7 SECONDS (22.3-36.8)
[2022-07-17] MEDS: LORazepam INJ (*CRX) 2 MG/ML VIAL IV PUSH ×2 (03:24→15:29)
[2022-07-17 05:15] LABS: Hematocrit 28.1 % (42.0-52.0); Mean Corpuscular Hemoglobin 32.5 pg (26-34); Mean Corpuscular Volume 101.4 fl (80-100); Mean Platelet Volume 10.6 fl (7.4-10.4); Platelet Count Result 177 k/mm3 (150-375); Red Blood Count 2.77 M/mm3 (4.6-6.20); Red Cell Distribution Width 14.1 % (11.5-14.5); White Blood Count 4.5 K/mm3 (4.5-10.0)
[2022-07-17] MEDS: CENTRAL LINE FLUSH 10 ML IV PUSH ×3 (05:21→20:42)
[2022-07-17 05:37] LABS: Alanine Aminotransferase 25 U/L (6-50); Albumin Level 3.7 g/dL (3.5-5.1); Alkaline Phosphatase 50 U/L (38-126); Anion Gap 7 mmol/L (8-16); Aspartate Amino Transferase 60 U/L (17-59); Bilirubin,Total 0.8 mg/dL (0.2-1.3); Blood Urea Nitrogen 38 mg/dL (9-20); Calcium 8.3 mg/dL (8.4-10.2); Carbon Dioxide 27 mmol/L (22-30); Chloride 108 mmol/L (98-107); Estimated CRCL calculation 56 ml/min; Estimated Glomerular Filt Rate > 60; Glucose 175 mg/dL (65-110); Magnesium 2.6 mg/dL (1.6-2.3); Phosphorus 2.6 mg/dL (2.5-4.5); Potassium 3.7 mmol/L (3.4-5.0); Sodium 142 mmol/L (137-145)
[2022-07-17] MEDS: dexmedeTOMIDine 400 MCG/100 ML 400 MCG/100 ML BAG 27.63 MCG IV CONT ×2 (07:24→15:10)
--- NOTE | 2022-07-17 08:30 | PCPTNOTE ---
According to nursing patient is still in restraints and not appropriate for skilled physical therapy evaluation at this time. Will check back tomorrow
--- NOTE | 2022-07-17 09:00 | WPDINTPN ---
Progress Note: A&P Assessment and Plan (1) Cardiac arrest: Code(s): I46.9 - Cardiac arrest, cause unspecified Status: Acute Assessment and Plan: Unknown etiology EKG shows sinus rhythm with sinus arrhythmia T they have depression in anterior leads. Patient had recent Holter monitoring as an outpatient which showed PACs and a brief run of PSVT. Serial troponin was done which were elevated and then have plateaued Patient was evaluated by Cardiology Echocardiogram showed 1. Left ventricular size with vyyw-zz-ksyeysci concentric left ventri cular hypertrophy.? Left ventricular systolic function of the lower limit of normal, calculated 48% ejection fraction, visually appears more in the 50-55% range. No segmental wall motion abnormalities.? Grade 1 diastolic dysfunction is present. ? 2. Left atrial chamber dimension is mildly enlarged. ? 3. There is trivial pericardial effusion. ? 4. No significant valve disease. ? 5. Normal sinus rhythm. CT angiogram of lung negative for PE but did show small hydropneumothorax on the right, hemopericardium and small hemoperitoneum Patient has acute coronary syndrome and on treatment for non STEMI Plan for ischemic workup by Cardiology by cardiac catheterization tomorrow (2) Acute coronary syndrome: Code(s): I24.9 - Acute ischemic heart disease, unspecified Status: Acute Assessment and Plan: Patient has abnormal EKG, elevated troponin Cardiology is following and aware Patient currently on dual antiplatelet therapy statin and heparin infusion Limited echo was done yesterday and and showed small pericardial effusion with no significant change Further management per Cardiology (3) Congestive heart failure: Code(s): I50.9 - Heart failure, unspecified Status: Acute Assessment and Plan: Repeat echo done yesterday showed Summary ? 1. Left ventricular chamber dimension is normal. ? 2. Left ventricular systolic function is normal, estimated at 60-65%. ? 3. There is no increased left ventricular wall thickness. ? 4. The apical inferior wall, basal inferolateral wall, and mid inferolateral wall are hypokinetic. ? 5. There is small pericardial effusion. Patient received Lasix overnight. Hold further Lasix at this time due to worsening renal function Improved oxygenation and chest x-ray Only on 2 L nasal cannula Monitor (4) Hemopericardium: Code(s): I31.2 - Hemopericardium, not elsewhere classified Status: Acute Assessment and Plan: CTA suggest small hemopericardium which could be from CPR Continue to hold Hold Lovenox Initial and repeat Echo was done and showed trivial pericardial effusion (5) Acute respiratory failure: Code(s): J96.00 - Acute respiratory failure, unspecified whether with hypoxia or hypercapnia Status: Acute Assessment and Plan: Acute Respiratory failure secondary to cardiac arrest Extubated 07/14 07/15 Chest x-ray shows pulmonary edema -patient was given the Lasix IV and patient was started on bronchodilator Appears improved this morning. Breath sounds are clear. He is on 2 L nasal cannula Chest x-ray reviewed Hold further diuretics at this time as patient will be receiving contrast tomorrow No detectable pneumothorax on chest x-ray that was seen on CT chest initially after his cardiac arrest CTA lung was negative for PE but did show Small right hydropneumothorax. Small left pleural effusion.. 07/15 repeat CTA lung 1. No evident pulmonary embolism. Sensitivity decreased in the segmental pulmonary arteries and nondiagnostic in many of the subsegmental pulmonary arteries due to primarily to respiratory motion. 2. Persistent small bilateral pleural effusions with moderate atelectasis predominantly in the dependent bilateral upper and lower lobes. (6) Acute kidney injury: Code(s): N17.9 - Acute kidney failure, unspecified Status: Acute Assessment and Plan: Likely secondary to car
[2022-07-17] MEDS: ALBUTEROL SULFATE NEB 2.5 MG/3 ML INH INHALATION ×2 (09:18→13:54)
[2022-07-17] MEDS: ASPIRIN 81 MG ENTERIC TABLET PO (09:28)
[2022-07-17] MEDS: CLOPIDOGREL BISULFATE 75 MG TABLET PO (09:29)
[2022-07-17] MEDS: FAMOTIDINE 20 MG/2 ML VIAL IV PUSH ×2 (09:29→20:41)
[2022-07-17] MEDS: buPROPion HCL XL (24 HR) 150 MG TABCR PO (09:29)
[2022-07-17] MEDS: ATORVASTATIN 20 MG TABLET PO (09:29)
--- NOTE | 2022-07-17 09:33 | PCOTNOTE ---
Attempted occupational therapy evaluation. According to nursing patient is still in restraints and not appropriate at this time. Following.
[2022-07-17 09:41] LABS: Creatine Kinase 694 U/L (55-170)
--- NOTE | 2022-07-17 10:06 | PM.PNCARD ---
Progress Note: A&P Assessment and Plan (1) Acute coronary syndrome: Code(s): I24.9 - Acute ischemic heart disease, unspecified Status: Acute (2) Cardiac arrest: Code(s): I46.9 - Cardiac arrest, cause unspecified Status: Acute (3) Hemopericardium: Code(s): I31.2 - Hemopericardium, not elsewhere classified Status: Acute (4) Atrial fibrillation: Code(s): I48.91 - Unspecified atrial fibrillation Status: Acute Plan Acute coronary syndrome with peak troponin of 11.1 and EKG showing ischemic changes. Patient started on Heparin drip, loaded with ASA 324mg and Plavix 300mg, along with beta-ivis. Currently stable from a cardiac standpoint - no indication for emergent or urgent cardiac cath. Continue with Heparin drip. Continue ASA 81mg once daily. Continue Atorvastatin. Continue Plavix 75mg once daily Continue beta-ivis. He had a very small hemopericardium likely the result from CPR. Repeat limited echo done 07/16 to make sure his effusion did not worsen with Heparin and DAPT, and it has remained stable. He will need a cardiac cath for ischemic evaluation. Possibly on Monday if tolerating Heparin drip and DAPT without any bleeding issues and if his mental status improves to where he can remain calm and follow commands. For his atrial fibrillation, continue to monitor on tele. He is currently in sinus. Continue with Heparin drip and beta ivis. Echo 07/13: 1. Left ventricular size with rivj-nq-qjycvfmt concentric left ventricular hypertrophy.? Left ventricular systolic function of the lower limit of normal, calculated 48% ejection fraction, visually appears more in the 50-55% range. No segmental wall motion abnormalities.? Grade 1 diastolic dysfunction is present. 2. Left atrial chamber dimension is mildly enlarged. 3. There is trivial pericardial effusion. 4. No significant valve disease. 5. Normal sinus rhythm. Echo 07/15: 1. Left ventricular chamber dimension is normal. 2. Left ventricular systolic function is normal, estimated at 60-65%. 3. There is no increased left ventricular wall thickness. 4. The apical inferior wall, basal inferolateral wall, and mid inferolateral wall are hypokinetic. 5. There is small pericardial effusion. Echo 07/16: ?1. This was a limited study done to evaluate pericardial effusion. ?2. There is small pericardial effusion. Unchanged compared to prior study. 3. Left pleural effusion is seen. Subjective Date/time seen: 07/17/22 10:06 Interval history: Reason for visit: Cardiac arrest, Acute coronary syndrome Interval history: 76-year-old who had bradycardia and arrest in OR suite during hernia surgery.? Date of service 07/14/2022:? No significant bradycardia overnight.? He is awake alert denies any chest pain.? He is still on ventilator but they are weaning to extubate. Follow-up note/date of service 07/15/2022: Feels okay.? Has some soreness in his abdomen.? No syncope, arrhythmia, chest pain or shortness of breath Date of service 07/16/2022: Yesterday afternoon, patient became acutely restless, anxious, and diaphoretic. EKG obtained at that time showed ST depressions in the lateral leads concerning for ischemia. Patient started on Heparin drip, loaded with ASA 324mg and Plavix 300mg, along with beta-ivis. Troponins were checked and ended up peaking at 11.1. Later in the evening/overnight this morning, patient again became restless and was thrashing. Skin became mottled, cold, and diaphoretic. EKGs showing atrial flutter. Patient given Haldol and Ativan with improvement in agitation. This morning, he is on Precedex infusion, therefore, does not answer questions. Date of service 07/17/2022: Remains on Precedex drip. Tolerating Heparin drip and DAPT - no bleeding issues noted thus far. Review of Systems Review of Systems: ROS unobtainable: Yes unobtainable due to medical condition and unobtainable due to mental status Exam Const:
[2022-07-17] MEDS: dexmedeTOMIDine 400 MCG/100 ML 400 MCG/100 ML BAG 25.33 MCG IV CONT (11:19)
[2022-07-17 11:53] LABS: Partial Thromboplastin Time 73.4 SECONDS (22.3-36.8)
[2022-07-17 11:55] LABS: Glucose Point of Care 137 mg/dl (65-105)
[2022-07-17] MEDS: MORPHINE SULFATE (*CRX) 2 MG/ML INJ IV PUSH ×2 (14:33→16:44)
--- NOTE | 2022-07-17 14:43 | PM.PNGS ---
Progress Note: A&P Assessment and Plan (1) Recurrent incisional hernia: Code(s): K43.2 - Incisional hernia without obstruction or gangrene Status: Chronic Assessment and Plan: stable, will start TF thru NG, exam largely benign (2) Acute coronary syndrome: Code(s): I24.9 - Acute ischemic heart disease, unspecified Status: Acute Assessment and Plan: mgmt per cardiology, cont anticoagulation, plan for cath tomorrow Subjective Subjective Date/Time Seen: 07/17/22 14:43 no acute changes, still sedated, confused Review of Systems Review of Systems: ROS unobtainable: Yes unobtainable due to medical condition and unobtainable due to mental status Exam Const: General: confusion, ill appearing and lethargic Other: sedated Resp: Auscultation: diminished lung sounds Cardio: Rate: regular rate Rhythm: regular rhythm GI: Inspection: normal to inspection, distended and incision GI Palp: Yes abdominal tenderness, Yes Soft to palpation, Yes Tenderness to palpation present (GI), No Guarding due to palpation present (GI) and No Rigid due to palpation Objective Data Vital Signs Vital Signs: Vital Signs - 24 hr 07/16/22 16:00 07/16/22 16:00 07/16/22 16:00 Temperature 36.7 C Pulse Rate 63 102 H 71 Respiratory Rate 15 Blood Pressure 156/70 H 116/91 H Pulse Oximetry 100 Oxygen Delivery Oxygen Flow Rate 07/16/22 16:00 07/16/22 18:00 07/16/22 18:00 Temperature 36.8 C Pulse Rate 67 61 Respiratory Rate 14 Blood Pressure 121/56 L Pulse Oximetry 97 97 Oxygen Delivery Nasal Cannula Oxygen Flow Rate 4 07/16/22 20:01 07/16/22 20:04 07/16/22 20:16 Temperature Pulse Rate 73 72 73 Respiratory Rate 24 H Blood Pressure 152/96 H Pulse Oximetry 98 Oxygen Delivery Nasal Cannula Oxygen Flow Rate 2 07/16/22 20:16 07/16/22 20:28 07/16/22 20:00 Temperature Pulse Rate 73 67 Respiratory Rate 24 H 14 Blood Pressure Pulse Oximetry 97 Oxygen Delivery Nasal Cannula Oxygen Flow Rate 2 07/16/22 20:01 07/16/22 20:59 07/16/22 20:30 Temperature 36.8 C Pulse Rate 61 77 68 Respiratory Rate 13 Blood Pressure 152/96 H 150/68 H 155/82 H Pulse Oximetry 99 Oxygen Delivery Oxygen Flow Rate 07/16/22 20:00 07/16/22 22:00 07/16/22 22:01 Temperature Pulse Rate 72 69 53 L Respiratory Rate 11 L Blood Pressure 125/54 L Pulse Oximetry 97 Oxygen Delivery Oxygen Flow Rate 07/17/22 00:00 07/17/22 00:02 07/17/22 02:00 Temperature 36.6 C Pulse Rate 63 58 L Respiratory Rate 19 10 L Blood Pressure 148/44 H 128/60 Pulse Oximetry 98 99 99 Oxygen Delivery Nasal Cannula Oxygen Flow Rate 2 07/17/22 00:00 07/17/22 02:00 07/17/22 04:00 Temperature Pulse Rate 66 64 58 L Respiratory Rate Blood Pressure Pulse Oximetry Oxygen Delivery Oxygen Flow Rate 07/17/22 04:00 07/17/22 04:00 07/17/22 06:00 Temperature 36.4 C Pulse Rate 57 L 52 L Respiratory Rate 10 L Blood Pressure 122/58 L Pulse Oximetry 99 99 Oxygen Delivery Nasal Cannula Oxygen Flow Rate 2 07/17/22 06:01 07/17/22 07:57 07/17/22 09:18 Temperature Pulse Rate 56 L 53 L Respiratory Rate 11 L 17 Blood Pressure 126/68 Pulse Oximetry 100 100 Oxygen Delivery Nasal Cannula Oxygen Flow Rate 2 07/17/22 09:26 07/17/22 09:29 07/17/22 09:30 Temperature Pulse Rate 48 L 47 L 47 L Respiratory Rate 10 L 10 L Blood Pressure Pulse Oximetry Oxygen Delivery Oxygen Flow Rate 07/17/22 10:05 07/17/22 08:00 07/17/22 10:00 Temperature 35.5 C L Pulse Rate 118 H 54 L 59 L Respiratory Rate 8 L 14 18 Blood Pressure 113/94 H 116/58 L Pulse Oximetry 96 97 Oxygen Delivery Oxygen Flow Rate 07/17/22 08:00 07/17/22 10:00 07/17/22 08:00 Temperature Pulse Rate 54 L 59 L 54 L Respiratory Rate 14 Blood Pressure Pulse Oximetry 96 Oxygen Delivery Nasal Cannula O
--- NOTE | 2022-07-17 15:30 | PC.NURSE ---
Patent continues to attempt to climb out of bed, pulling self to end of bed, attempting to pull ng. Unable to redirect, patient agitated.
[2022-07-17 17:47] LABS: Glucose Point of Care 154 mg/dl (65-105)
--- NOTE | 2022-07-17 18:18 | PC.NURSE ---
Patient attempting to climb out of bed, pulling restraints. Feet over the side of the bed, unable to redirect.
[2022-07-17] MEDS: dexmedeTOMIDine 400 MCG/100 ML 400 MCG/100 ML BAG 32.24 MCG IV CONT ×2 (18:50→21:38)
[2022-07-17 19:24] LABS: Partial Thromboplastin Time 53.1 SECONDS (22.3-36.8)
[2022-07-17] MEDS: HEPARIN SOD/D5W 100 UNITS/ML 25,000 UNITS/250 ML BAG 13 UNITS IV CONT (19:35)
[2022-07-17] MEDS: HEPARIN SODIUM 5,000 UNITS/ML VIAL 4000 UNITS IV PUSH (19:37)
[2022-07-17] MEDS: CARBIDOPA/LEVODOPA 25/100 MG TABLET 1 TABLET PO (20:41)
[2022-07-17] MEDS: METOPROLOL TARTRATE 25 MG TABLET PO (20:41)
[2022-07-17] MEDS: lamoTRIgine 100 MG TABLET 200 MG PO (20:42)
[2022-07-17] MEDS: ACETAMINOPHEN 325 MG TABLET 650 MG PO (20:46)
[2022-07-17 23:27] LABS: Glucose Point of Care 120 mg/dl (65-105)
[2022-07-18] VITALS (66 sets, daily range): BP systolic 64–162; BP diastolic 46–84; PULSE 55–960; RESP 12–36; TEMP 36.7–38.4; O2SAT 87–100; BMI 25.1
[2022-07-18] MEDS: HEPARIN SOD/D5W 100 UNITS/ML 25,000 UNITS/250 ML BAG 13 UNITS IV CONT (00:44)
[2022-07-18] MEDS: dexmedeTOMIDine 400 MCG/100 ML 400 MCG/100 ML BAG 32.24 MCG IV CONT ×3 (00:48→07:03)
[2022-07-18 01:33] LABS: Hematocrit 25.3 % (42.0-52.0); Mean Corpuscular HGB Conc 31.6 g/dl (32-36); Mean Corpuscular Hemoglobin 32.8 pg (26-34); Mean Corpuscular Volume 103.7 fl (80-100); Mean Platelet Volume 10.7 fl (7.4-10.4); Platelet Count Result 193 k/mm3 (150-375); Red Blood Count 2.44 M/mm3 (4.6-6.20); Red Cell Distribution Width 14.3 % (11.5-14.5); White Blood Count 6.2 K/mm3 (4.5-10.0)
[2022-07-18] MEDS: LORazepam INJ (*CRX) 2 MG/ML VIAL IV PUSH ×3 (01:57→12:20)
[2022-07-18 02:10] LABS: Alanine Aminotransferase 28 U/L (6-50); Albumin Level 3.5 g/dL (3.5-5.1); Alkaline Phosphatase 50 U/L (38-126); Anion Gap 9 mmol/L (8-16); Aspartate Amino Transferase 162 U/L (17-59); Bilirubin,Total 1.2 mg/dL (0.2-1.3); Blood Urea Nitrogen 45 mg/dL (9-20); Carbon Dioxide 26 mmol/L (22-30); Chloride 109 mmol/L (98-107); Estimated CRCL calculation 40 ml/min; Estimated Glomerular Filt Rate 49; Glucose 125 mg/dL (65-110); Magnesium 2.6 mg/dL (1.6-2.3); Phosphorus 2.5 mg/dL (2.5-4.5); Potassium 3.3 mmol/L (3.4-5.0); Sodium 144 mmol/L (137-145)
[2022-07-18 02:26] LABS: Partial Thromboplastin Time > 200.0 SECONDS (22.3-36.8)
[2022-07-18 05:30] LABS: Glucose Point of Care 116 mg/dl (65-105)
[2022-07-18] MEDS: CENTRAL LINE FLUSH 10 ML IV PUSH ×3 (06:37→20:24)
[2022-07-18] MEDS: ASPIRIN 81 MG ENTERIC TABLET PO (08:20)
[2022-07-18] MEDS: ATORVASTATIN 20 MG TABLET PO (08:20)
[2022-07-18] MEDS: CLOPIDOGREL BISULFATE 75 MG TABLET PO (08:20)
[2022-07-18] MEDS: FAMOTIDINE 20 MG/2 ML VIAL IV PUSH (08:22)
[2022-07-18] MEDS: POTASSIUM CHLORIDE INJ 40 MEQ in SODIUM CHLORIDE 0.9% IV 500 ML 130 MEQ IVPB (08:22)
[2022-07-18 08:27] LABS: Partial Thromboplastin Time 118.9 SECONDS (22.3-36.8)
--- NOTE | 2022-07-18 08:27 | PCOTNOTE ---
Attempted to see pt. Due to cognitive and behavioral condition, pt. continues to be be unable to participate in therapy services. Hospitalist aware and agreed. D/C from services at this time, re-order when appropriate.
[2022-07-18] MEDS: buPROPion HCL XL (24 HR) 150 MG TABCR PO (08:32)
--- NOTE | 2022-07-18 11:02 | WPDINTPN ---
Progress Note: A&P Assessment and Plan (1) Cardiac arrest: Code(s): I46.9 - Cardiac arrest, cause unspecified Status: Acute Assessment and Plan: Unknown etiology EKG shows sinus rhythm with sinus arrhythmia T they have depression in anterior leads. Patient had recent Holter monitoring as an outpatient which showed PACs and a brief run of PSVT. Serial troponin was done which were elevated and then have plateaued Patient was evaluated by Cardiology Echocardiogram showed 1. Left ventricular size with [id number] concentric left ventri cular hypertrophy.? Left ventricular systolic function of the lower limit of normal, calculated 48% ejection fraction, visually appears more in the 50-55% range. No segmental wall motion abnormalities.? Grade 1 diastolic dysfunction is present. ? 2. Left atrial chamber dimension is mildly enlarged. ? 3. There is trivial pericardial effusion. ? 4. No significant valve disease. ? 5. Normal sinus rhythm. CT angiogram of lung negative for PE but did show small hydropneumothorax on the right, hemopericardium and small hemoperitoneum Patient has acute coronary syndrome and on treatment for non STEMI Patient has gone for cardiac catheterization at this time (2) Acute coronary syndrome: Code(s): I24.9 - Acute ischemic heart disease, unspecified Status: Acute Assessment and Plan: Patient has abnormal EKG, elevated troponin Cardiology is following and aware Patient currently on dual antiplatelet therapy statin and heparin infusion Limited echo was done yesterday and and showed small pericardial effusion with no significant change Patient has gone for cardiac catheterization this time (3) Congestive heart failure: Code(s): I50.9 - Heart failure, unspecified Status: Acute Assessment and Plan: Repeat echo done yesterday showed Summary ? 1. Left ventricular chamber dimension is normal. ? 2. Left ventricular systolic function is normal, estimated at 60-65%. ? 3. There is no increased left ventricular wall thickness. ? 4. The apical inferior wall, basal inferolateral wall, and mid inferolateral wall are hypokinetic. ? 5. There is small pericardial effusion. Patient received Lasix overnight. Hold further Lasix at this time due to worsening renal function Improved oxygenation and chest x-ray Only on 2 L nasal cannula Monitor (4) Hemopericardium: Code(s): I31.2 - Hemopericardium, not elsewhere classified Status: Acute Assessment and Plan: CTA suggest small hemopericardium which could be from CPR Initial and repeat Echo was done and showed trivial pericardial effusion (5) Acute respiratory failure: Code(s): J96.00 - Acute respiratory failure, unspecified whether with hypoxia or hypercapnia Status: Acute Assessment and Plan: Acute Respiratory failure secondary to cardiac arrest Extubated 07/14 07/15 Chest x-ray shows pulmonary edema -patient was given the Lasix IV and patient was started on bronchodilator Appears improved this morning. Breath sounds are clear. He is on 2 L nasal cannula Chest x-ray reviewed Hold further diuretics at this time No detectable pneumothorax on chest x-ray that was seen on CT chest initially after his cardiac arrest CTA lung was negative for PE but did show Small right hydropneumothorax. Small left pleural effusion.. 07/15 repeat CTA lung 1. No evident pulmonary embolism. Sensitivity decreased in the segmental pulmonary arteries and nondiagnostic in many of the subsegmental pulmonary arteries due to primarily to respiratory motion. 2. Persistent small bilateral pleural effusions with moderate atelectasis predominantly in the dependent bilateral upper and lower lobes. (6) Acute kidney injury: Code(s): N17.9 - Acute kidney failure, unspecified Status: Acute Assessment and Plan: Initially presented with elevated creatinine which was Likely secondary to cardiac arrest and ep
--- NOTE | 2022-07-18 11:16 | PCFNICU ---
ICU Rounding Note: Pt current nutrition is NPO . Nutrition recommendation: Vital 1.2 at goal rate 70 ml/h when tube feeding is restarted. 1840 kcals, 115 g protein, 1248 ml free water. Flushes 30 ml q 4 hours. Last recorded weight is 77.2 kg. Bowel Motility: No BMs charted Labs Reviewed:Hgb 8.0, Hct 25.3, K+ 3.3, BUN 45, Cre 1.4, Mag 2.5 Meds Noted: Precedex, ativan Skin: Surgical to abdomen Additional Notes: Started on vent. Min/vent 10.5, Tmax 101.1/ Sedation with precedex, ativan. Tube feeding was started but patient did not leave the tube in place so it was discontinued and now he is NPO for procedure. MD will re-order tube feeding when appropriate. Following daily in ICU rounds. Mionitoring diet advancement, intakes, labs, weights, plan of care. Follow up in ICU rounds and per policy..
--- NOTE | 2022-07-18 11:17 | WPDMODSED ---
Moderate Sedation Note-Pt Data Patient Data Diagnosis: NSTEMI, acute coronary syndrome Present Complaint: NSTEMI, acute coronary syndrome Procedure to be performed/Plan: Coronary angiography Allergies Allergy/AdvReac Type Severity Reaction Status Date / Time bee venom protein (honey bee) Allergy Severe Swelling Verified 07/16/22 16:28 hydrocodone AdvReac Unknown Confusion Verified 07/06/22 15:08 meperidine AdvReac Unknown Nausea Verified 07/06/22 15:08 promethazine AdvReac Unknown Confusion, Verified 07/06/22 15:08 NAUSEA Home Medications Medication Instructions Recorded Confirmed Type lamotrigine 200 mg tablet 200 mg PO HS 08/12/19 07/13/22 History escitalopram oxalate 5 mg tablet 5 mg PO QAM 08/31/20 07/13/22 History mecobalamin (vitamin B12) 1,000 1,000 mcg PO DAILY 08/31/20 07/13/22 History mcg chewable tablet acetaminophen 500 mg tablet 500 mg PO Q6H PRN Pain 12/26/20 07/14/22 History (Acetaminophen Extra Strength) ascorbate calcium (vitamin C) 500 1,000 mg PO DAILY 12/26/20 07/13/22 History mg tablet cholecalciferol (vitamin D3) 25 25 mcg PO DAILY 12/26/20 07/13/22 History mcg (1,000 unit) chewable tablet (Vitamin D3) Lactobacills gasseri-Bifidobac 1 cap PO QAM 09/30/21 07/13/22 History bifidum,longum 1.5 billion cell capsule ([employer]) bupropion HCl 150 mg 24 hr tablet, 150 mg PO QAM 09/30/21 07/13/22 History extended release buspirone 10 mg tablet 10 mg PO TID 09/30/21 07/13/22 History montelukast 10 mg tablet 10 mg PO QHS 09/30/21 07/13/22 History ropinirole 0.5 mg tablet 0.5 mg PO BID 09/30/21 07/13/22 History carbidopa 25 mg-levodopa 100 mg See Rx Instructions .Route 06/25/22 07/13/22 Rx tablet .COMPLEX #30 tabs hydrochlorothiazide 25 mg tablet 25 mg PO QAM 07/06/22 07/13/22 History simvastatin 40 mg tablet See Rx Instructions .Route 07/12/22 07/13/22 Rx .COMPLEX #90 tabs cyanocobalamin (vitamin B-12) 1,000 mcg PO DAILY 07/14/22 07/14/22 History 1,000 mcg tablet (Vitamin B-12) Current Medications: Active Medications Acetaminophen (Acetaminophen 325 Mg Tablet) 650 mg PO Q4H PRN PRN Reason: Headache, fever, mild pain Last Admin: 07/17/22 20:46 Dose: 650 mg Albuterol (Albuterol Sulfate Neb 2.5 Mg/3 Ml Inh) 2.5 mg INHALATION Q4HRT PRN PRN Reason: Shortness Of Breath Last Admin: 07/17/22 13:54 Dose: 2.5 mg Aspirin (Aspirin 81 Mg Enteric Tablet) 81 mg PO [facility] Last Admin: 07/18/22 08:20 Dose: 81 mg Atorvastatin Calcium (Atorvastatin 20 Mg Tablet) 20 mg PO DAILY [facility] Last Admin: 07/18/22 08:20 Dose: 20 mg Bupropion HCl (Bupropion Hcl Xl (24 Hr) 150 Mg Tabcr) [facility] Last Admin: 07/18/22 08:32 Dose: 150 mg Buspirone HCl (Buspirone Hcl 10 Mg Tablet) 10 mg PO TID [facility] Last Admin: 07/15/22 18:51 Dose: 10 mg Carbidopa/Levodopa (Carbidopa/Levodopa 25/100 Mg Tablet) 1 tablet PO QHS [facility] Last Admin: 07/17/22 20:41 Dose: 1 tablet Clopidogrel Bisulfate (Clopidogrel Bisulfate 75 Mg Tablet) [facility] Last Admin: 07/18/22 08:20 Dose: 75 mg Dextrose (Dextrose 50% 25 Gm/50 Ml Syringe) 12.5 gm IV PUSH PRN PRN; Protocol PRN Reason: Hypoglycemia Famotidine (Famotidine 20 Mg/2 Ml Vial) 20 mg IV PUSH Q12HR [facility] Last Admin: 07/18/22 08:22 Dose: 20 mg Glucagon (Glucagon For Inj 1 Mg Vial) 1 mg IM PRN PRN; Protocol PRN Reason: Hypoglycemia Glucose (Glucose Oral Gel 15 Gm Of Glucse In 37.5 Gm Tube) 15 gm PO PRN PRN; Protocol PRN Reason: Hypoglycemia Heparin Sodium (Porcine) (Heparin Sodium 5,000 Units/Ml Vial) 4,000 units IV PUSH PRN PRN PRN Reason: aPTT less than 55 seconds Last Admin: 07/17/22 19:37 Dose: 4,000 units Heparin Sodium (Porcine) (Heparin Sodium 5,000 Units/Ml Vial) 3,000 units IV PUSH PRN PRN PRN Reason: aPTT 55 - 70 seconds Last Admin: 07/16/22 20:02 Dose: 3,000 units Dextrose (Dextrose 5% 1,000 Ml) 1,000 mls @ 100 mls/hr IVPB PRN PRN; Protocol PRN Reason: Hypoglycemia Hepari
[2022-07-18] MEDS: dexmedeTOMIDine 400 MCG/100 ML 400 MCG/100 ML BAG 27.63 MCG IV CONT (11:29)
[2022-07-18 11:52] LABS: Ammonia < 9 umol/L (9-30)
--- NOTE | 2022-07-18 12:09 | WPDCARDPROC ---
Cardiac Cath Procedure Note Date of procedure:: 07/18/22 Performing physician:: CATHETERIZATION LABORATORY REPORT Procedure Date: 07/18/2022 Chemical Librarian: Rolando Martinez M.D., [facility]? Referring Physician: Rolando Martinez M.D. ? Anesthesia: Versed and Fentanyl were ordered and given in my presence at 10:13, procedure ended at 10:51. Supervision of nurse monitored moderate sedation with Versed and Fentanyl was provided for 38 minutes. Total of Versed 5mg and Fentanyl 50mcg were administered by the Director Service RN Vera Wood. 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 He had bradycardia and cardiac arrest in the OR requiring brief CPR. During hospitalization, he developed ischemic EKG changes along with troponin rise of 11. Given NSTEMI, patient referred for cardiac cath for ischemic evaluation. All risks, benefits and alternatives to left heart catheterization with or without percutaneous coronary intervention was discussed at length with the patient. Risk of complications including but not limited to bleeding, infection, arrhythmia, stroke, worsening kidney function, blood loss, groin hematoma, limb loss, emergency coronary artery bypass grafting, and even were discussed with the patient and all questions were answered. The patient understood and wished to proceed. Time out called, patient name, date of , medical record number, allergies, procedure performed, identify Chemical Librarian, patient and staff member concurred with accurate data, procedure carried on. Findings: LEFT HEART CATHETERIZATION FINDINGS: 1. Left main: The left main coronary artery is widely patent without any significant obstructive disease. 2. Left anterior descending: The proximal LAD has mild luminal irregularities. The mid LAD after the bifurcation of the first diagonal branch has a focal hazy moderate stenosis of 50-70%. Rest of the LAD has mild diffuse disease. The first diagonal branch is a small caliber vessel with diffuse disease without focal stenosis. 3. Left circumflex: The left circumflex artery has mild diffuse disease. OM-1 has mild diffuse disease. OM-2 has a moderate 50% stenosis in its mid section. 4. Right coronary artery: The RCA is the dominant vessel. The ostial-proximal RCA is diseased. The mid RCA is ectatic with a focal 80% stenosis followed distally by a focal 70% stenosis. The distal RCA has mild diffuse disease. Description of Procedure: Informed consent signed and placed in the chart. Patient transferred to lab engineer room. Prepped and draped in usual sterile fashion. 2% lidocaine injected subcutaneously in right wrist area. 22-gauge venipuncture catheter used to access the right radial artery with the Seldinger technique. 6-FR slender sheath placed in right radial artery. Nitroglycerine and Verapamil were given intraarterial through the sheath. Versacore wire advanced under fluoroscopy 5F Tig 4 diagnostic catheter engaged Left Main Coronary Artery. 5F FR 4 diagnostic catheter engaged Right Coronary Artery Multiple orthogonal angiogram obtained and reviewed Attempted to cross the aortic valve with a 5F FR4 diagnostic catheter and a 5F Pigtail catheter to obtain the LV, but unable to cross. Hemostasis was achieved by application of TR band. ? 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
--- NOTE | 2022-07-18 12:30 | PM.PNCARD ---
Progress Note: A&P Assessment and Plan (1) Acute coronary syndrome: Code(s): I24.9 - Acute ischemic heart disease, unspecified Status: Acute (2) Cardiac arrest: Code(s): I46.9 - Cardiac arrest, cause unspecified Status: Acute (3) Hemopericardium: Code(s): I31.2 - Hemopericardium, not elsewhere classified Status: Acute (4) Atrial fibrillation: Code(s): I48.91 - Unspecified atrial fibrillation Status: Acute Plan Acute coronary syndrome with peak troponin of 11.1 and EKG showing ischemic changes. Had brief episode of atrial fibrillation as well - has been maintained in sinus. Patient started on Heparin drip, loaded with ASA 324mg and Plavix 300mg, along with beta-ivis. Continue with Heparin drip. Continue ASA 81mg once daily. Continue Atorvastatin. Continue Plavix 75mg once daily Continue beta-ivis. He had a very small hemopericardium likely the result from CPR. Repeat limited echo done 07/16 to make sure his effusion did not worsen with Heparin and DAPT, and it has remained stable. Cardiac cath done this AM which showed significant obstructive mid RCA disease (which likely was the culprit), concern that his ostial-proximal RCA disease may be significant as well. Cardiac cath done without complications, since urgent/emergent PCI not indicated, we concluded the case after obtaining diagnostic images. Plan to discuss with our colleagues at [facility] for transferring patient there for high-risk PCI. Shortly after returning to the ICU, patient became even more agitated. Head CT was obtained which was negative for acute findings. ICU team was prepping to intubate the patient, however, then NORA CRUZ was called. On telemetry, patient had brief SVT that had converted to sinus, however, then he went into VTACH which appears to have degenerated into VFIB. ACLS performed for a few minutes with ROSC. EKG after ROSC showing sinus rhythm with PACS. Patient then went into AFIB with RVR. On Levophed for pressure support. Started on Amio for AFIB. Echo 07/13: 1. Left ventricular size with [id number] concentric left ventricular hypertrophy.? Left ventricular systolic function of the lower limit of normal, calculated 48% ejection fraction, visually appears more in the 50-55% range. No segmental wall motion abnormalities.? Grade 1 diastolic dysfunction is present. 2. Left atrial chamber dimension is mildly enlarged. 3. There is trivial pericardial effusion. 4. No significant valve disease. 5. Normal sinus rhythm. Echo 07/15: 1. Left ventricular chamber dimension is normal. 2. Left ventricular systolic function is normal, estimated at 60-65%. 3. There is no increased left ventricular wall thickness. 4. The apical inferior wall, basal inferolateral wall, and mid inferolateral wall are hypokinetic. 5. There is small pericardial effusion. Echo 07/16: ?1. This was a limited study done to evaluate pericardial effusion. ?2. There is small pericardial effusion. Unchanged compared to prior study. 3. Left pleural effusion is seen. Subjective Date/time seen: 07/18/22 12:30 Interval history: Reason for visit: Cardiac arrest, Acute coronary syndrome Interval history: 76-year-old who had bradycardia and arrest in OR suite during hernia surgery.? Date of service 07/14/2022:? No significant bradycardia overnight.? He is awake alert denies any chest pain.? He is still on ventilator but they are weaning to extubate. Follow-up note/date of service 07/15/2022: Feels okay.? Has some soreness in his abdomen.? No syncope, arrhythmia, chest pain or shortness of breath Date of service 07/16/2022: Yesterday afternoon, patient became acutely restless, anxious, and diaphoretic. EKG obtained at that time showed ST depressions in the lateral leads concerning for ischemia. Patient started on Heparin drip, loaded with ASA 324mg and Plavix 300mg, along with beta-ivis. Troponins were checked and e
[2022-07-18] MEDS: ETOMIDATE 40 MG/20 ML VIAL 20 MG IV PUSH (12:40)
--- NOTE | 2022-07-18 12:44 | ECG_ITS ---
Measurements Intervals [facility] Rate: 100 P: TX: 0 QRS: 44 QRSD: 118 T: 90 QT: 320 QTc: 414 Interpretive Statements SINUS RHYTHM ATRIAL COUPLET AND FREQUENT ATRIAL PREMATURE COMPLEXES INCOMPLETE LEFT BUNDLE BRANCH BLOCK DELAYED PRECORDIAL R/S TRANSITION BORDERLINE ST-T WAVE ABNORMALITY- LAT/HIGH LAT LEADS BASELINE ARTIFACT- V1, V3 ABNORMAL ECG COMPARED TO ECG 07/16/2022 02:27:04 FREQUENT ATRIAL PREMATURE COMPLEXES NOW PRESENT Electronically Signed On 07-18-2022 17:35:29 [employer]URE [employer] by Jeffrey Dunham D.O.
[2022-07-18 12:52] LABS: Glucose Point of Care 90 mg/dl (65-105)
[2022-07-18] MEDS: NOREPINEPHRINE 8 MG/D5W 250 ML 8 MG/250 ML BAG 37.5 MG IV CONT (12:57)
[2022-07-18] MEDS: SODIUM BICARBONATE 8.4% 50 MEQ/50 ML SYRINGE 100 MEQ IV PUSH (13:06)
[2022-07-18] MEDS: SODIUM CHLORIDE 0.9% IV 1,000 ML 999 ML IV CONT (13:06)
[2022-07-18] MEDS: AMIODARONE 150 MG/D5W 100 ML 150 MG/100 ML BAG 600 MG IV CONT ×2 (13:08→17:11)
[2022-07-18] MEDS: AMIODARONE 360 MG/D5W 200 ML 360 MG/200 ML BAG 33.33 MG IV CONT ×2 (13:09→17:11)
--- NOTE | 2022-07-18 13:47 | PDCODEBLUE ---
Code Blue Note Code Blue Note Time Arrived at Code Blue: 1234 Initial Rhythm on Arrival: V-tach Airway Management: Initiated bagging pt on arrival Chest Compressions: Initiated upon arrival Result of Code Blue: ICU Cardiac Rhythm Post Code: Atrial fibrillation Code Blue Summary: Refer to my other note for all the details
--- NOTE | 2022-07-18 13:49 | WPDPROCEDUR ---
Procedures Intubation Intubation Date: 07/18/22 Intubation Time: 12:45 Consent: Procedure was done in emergency as patient had a cardiac arrest A pre-procedural Time-Out was completed immediately before starting the procedure and confirmed: Patient Identification, Site, Procedure, Patient Position and the Availability of Requisite Equipment: No Sedative: etomidate Mg given: 20 Laryngoscope: fiber optic video scope Assist device used: fiber optic device ET tube size: cuffed Tube secured depth (cm): 23 Tube secured location: lips Tube placement confirmation: visualized tube passing through cords, equal breath sounds bilaterally, no breath sounds over epigastrium and confirmation by capnometry Patient tolerated procedure: well Intubation complications: none Additional comments: Etomidate was given post intubation for sedation patient was asynchronous with the ventilator
[2022-07-18 13:50] LABS: Base Excess ABG -3.2 mEq/l (+/-2.0); Device VENTILATOR; Fractional Inspired Oxygen 100 %; Modified Allen's Test Pass; Oxygen Content ABG 14.2 %vol (16.0-22.0); Oxygen Saturation ABG 99.8 % (95.0-100.0); Oxyhemoglobin 97.6 % THb (90.0-100.0); PCO2 ABG 34.2 mmHg (35.0-45.0); PO2 ABG 372.8 mmHg (80.0-100.0); PO2 FiO2 Ratio Arterial Blood 3.73 %; Site Drawn LEFT RADIAL; Total Hemoglobin 9.6 g/dL (12.0-18.0); pH ABG 7.406 (7.350-7.450)
--- NOTE | 2022-07-18 13:50 | P.PNCROSS_ITS ---
Event Note Event Note Event Note: Patient had cardiac catheterization done and return to ICU. On return to ICU rin cortes was agitated confused and was trying to pull on lines and tubes and to get out of bed. Nursing staff was holding his right hand down where he had cardiac catheterization done and TR band in place. I gave patient 2 mg of Ativan to control his acute agitation and the patient was sent for his head CT which later came back negative. On return patient again came agitated. Was called by nursing staff to the room and I saw for nurses holding patient down who was will rolled over sideways in the bed with his legs hanging out of bed. One nurse was willing patient's right hand down to try to avoid injury and hematoma was right wrist. Patient was already on Precedex infusion and I gave patient another 2 mg of Ativan. Despite that his agitation was not in control. At that point I decided to reintubate patient for his safety as patient will need a repeat PCI or transfer to a different hospital anyway and he could not be transferred in that condition. While I was sitting up intubation equipment and checking ETT and nursing staff was getting drugs/RT trying to get the ventilator to the room. Patient went into SVT and immediately converted to a V-tach. It appeared torsades. CPR was initiated. Patient had no pulse and he was defibrillated with 200 joules. CPR was resumed. Resulting the patient was in asystole. 2g of Mag sulfate were also given. While in asystole CPR was performed and patient was given epinephrine before ROSC was obtained. In total patient received 1 DC shock, to g of Mag sulfate and 2 dose of epinephrine in a resuscitation which lasted less than 5 minutes before ROSC was obtained. Once pulse was obtained I intubated patient without any significant difficulty. Post intubation patient was given a dose of the he was coughing and biting on the tu be. Patient was placed on mechanical ventilation. Initially his rhythm was sinus with frequent PACs which later converted to AFib with RVR. Patient was started on Levophed infusion for hypotension, 1 L fluid bolus was started and later patient was started on amiodarone infusion for AFib with RVR. Patient converted to sinus rhythm and amnio infusion was discontinued. Chest x-ray and KUB was reviewed and shows acceptable position of NG tube and ET tube ABG was reviewed and FiO2 was weaned I and registered nurse renal Dr. Martinez spoke to patient's and patient's [id number] who is a physician [place] and updated both with the events of this morning. We updated them with patient's current status, current treatment plan and answered all questions. Cardiology will plan to transfer patient to [facility] for high-risk PCI. Once patient is stabilized bed is available patient will be transferred. Patient will Critical Care Time for today except separately billed procedures- 65 minutes Due to a high probability of clinically significant, life threatening deterioration, the patient required my highest level of preparedness to intervene emergently and I personally spent this critical care time directly and personally managing the patient. This critical care time included obtaining a history; examining the patient; pulse oximetry; ordering and review of studies; arranging urgent treatment with development of a management plan; evaluation of patient's response to treatment; frequent reassessment; and discussions with other providers. It was exclusive of separately billable procedures and treating other patients and teaching time. Please see Assessment and Plan section and the rest of the note for further information on patient assessment and treatment
[2022-07-18 13:51] LABS: Arterial Blood Gas PEEP 5 cmH2O; Arterial Blood Gas Tidal Volume 350 ml; Arterial Blood Gas Vent Mode CMV; Arterial Blood Gas Ventilator rate 22 /MIN
[2022-07-18 14:32] LABS: Mean Corpuscular HGB Conc 32.7 g/dl (32-36); Mean Platelet Volume 10.4 fl (7.4-10.4); Platelet Count Result 223 k/mm3 (150-375); Red Blood Count 1.97 M/mm3 (4.6-6.20); Red Cell Distribution Width 14.6 % (11.5-14.5); White Blood Count 7.5 K/mm3 (4.5-10.0)
[2022-07-18 14:35] LABS: Hematocrit 19.9 % (42.0-52.0); Hemoglobin 6.5 g/dL (14.0-18.0)
[2022-07-18 14:42] LABS: Alanine Aminotransferase 106 U/L (6-50); Alkaline Phosphatase 50 U/L (38-126); Anion Gap 10 mmol/L (8-16); Aspartate Amino Transferase 220 U/L (17-59); Bilirubin,Total 1.1 mg/dL (0.2-1.3); Blood Urea Nitrogen 49 mg/dL (9-20); Calcium 7.5 mg/dL (8.4-10.2); Carbon Dioxide 26 mmol/L (22-30); Chloride 112 mmol/L (98-107); Estimated CRCL calculation 38 ml/min; Estimated Glomerular Filt Rate 46; Glucose 156 mg/dL (65-110); Magnesium 3.3 mg/dL (1.6-2.3); Phosphorus 3.7 mg/dL (2.5-4.5); Potassium 3.4 mmol/L (3.4-5.0); Sodium 148 mmol/L (137-145)
[2022-07-18] MEDS: PROPOFOL IV EMULSION 100 ML 2.32 MG IV CONT (14:45)
[2022-07-18] MEDS: KCL 20 MEQ/SW 100 ML 100 ML 50 MEQ IVPB (15:53)
[2022-07-18] MEDS: POTASSIUM CHLORIDE 20 MEQ PACKET (FOR LIQUID) 40 MEQ FEED TUBE (15:54)
[2022-07-18] MEDS: DEXTROSE 5%/0.45% SOD CHL 1,000 ML 100 ML IV CONT (15:54)
--- NOTE | 2022-07-18 16:23 | PM.PNGS ---
Progress Note: A&P Assessment and Plan (1) Anemia: Code(s): D64.9 - Anemia, unspecified Status: Acute Assessment and Plan: This is worsened throughout the day. Patient do to get 1 unit of packed cells. With surgery 5 days ago and 2 different episodes of cardiopulmonary recess today rucker the last of which was today, I am concerned he has developed a bleeding complication. Currently his heparin has been stopped. He is still on Plavix anti thrombotic therapy. Will get stat CT scan abdomen and pelvis. Agree with transfusion of at least 1 unit of packed cells and continued monitoring of H&H. (2) Acute coronary syndrome: Code(s): I24.9 - Acute ischemic heart disease, unspecified Status: Acute Assessment and Plan: Acute MA with evidence of significant right coronary artery disease and mid LAD disease on catheterization today. Post catheterization, patient developed rapid AFib, torsade and had cardiopulmonary resuscitation again. (3) Acute respiratory failure with hypoxia: Code(s): J96.01 - Acute respiratory failure with hypoxia Status: Acute Assessment and Plan: Remains intubated largely because he requires significant sedation due to his thrashing and restlessness with lesser doses. (4) Delirium: Code(s): R41.0 - Disorientation, unspecified Status: Acute Assessment and Plan: As above. (5) Status post hernia repair: Code(s): Z98.890 - Other specified postprocedural states; Z87.19 - Personal history of other diseases of the digestive system Status: Acute Assessment and Plan: No evidence of recurrent hernia. Surgery was 5 days ago. Concerns over postop bleeding with the anticoagulation and anti thrombotic therapy required for his acute coronary syndrome. CT scan is pending. Time Spent With Patient Time with patient: 25 - 35 minutes Subjective Subjective Date/Time Seen: 07/18/22 16:23 Post Op day: 5 Patient reports: other (Intubated, had coded again after cardiac catheterization) Interval history: Discussed with senior climate advisor and Dr. Martinez, irrigation system installer. After cardiac catheterization, patient developed rapid atrial fibrillation and eventually torsade. He was coded and cardioverted. Sinus rhythm ensued. He is extremely restless and remains intubated. Plan is to transfer patient for high risk coronary [place] intervention at [facility]. I returned just now and patient's H&H has dropped significantly. He was on anti thrombotic treatment as well as heparin anticoagulation. Earlier today his APTT was over 200 seconds. Review of Systems Review of Systems: ROS unobtainable: Yes unobtainable due to endotracheal tube and unobtainable due to mental status Exam Const: General: patient obtunded GI: Inspection: abdominal wall ecchymosis (Left flank ecchymosis), non-distended, incision (Dry and healing well) and no visible herniation GI Palp: Yes Soft to palpation (More of a fullness then was present earlier today.), No Hepatomegaly present, No Splenomegaly present, No Hernia present, No Palpable mass present and No Ascites present Objective Data Vital Signs Vital Signs: Vital Signs - 24 hr 07/17/22 17:34 07/17/22 18:00 07/17/22 18:00 Temperature 36.9 C Pulse Rate 89 69 69 Respiratory Rate 23 H 24 H Blood Pressure 112/58 L Pulse Oximetry 100 Oxygen Delivery Oxygen Flow Rate Fraction of Inspired Oxygen 07/17/22 18:31 07/17/22 18:50 07/17/22 20:00 Temperature Pulse Rate 72 72 67 Respiratory Rate 21 H 21 H Blood Pressure Pulse Oximetry Oxygen Delivery Oxygen Flow Rate Fraction of Inspired Oxygen 07/17/22 20:00 07/17/22 20:00 07/17/22 20:41 Temperature 38.4 C H Pulse Rate 68 68 81 Respiratory Rate 18 19 Blood Pressure 119/50 L Pulse Oximetry 96 96 Oxygen Delivery Nasal Cannula Oxygen Flow Rate 1 Fraction of Inspired Oxygen 07/17/22 20:46 07/17/22 21:38 06/22
[2022-07-18 18:11] LABS: INR 1.7; Prothrombin Time 19.7 Seconds (11.1-14.7)
[2022-07-18 18:12] LABS: Fibrinogen 626 mg/dl (215-510); Partial Thromboplastin Time 46.3 SECONDS (22.3-36.8)
[2022-07-18 18:30] LABS: Glucose Point of Care 124 mg/dl (65-105)
[2022-07-18] MEDS: PROPOFOL IV EMULSION 100 ML 18.53 MG IV CONT (20:22)
[2022-07-18] MEDS: CARBIDOPA/LEVODOPA 25/100 MG TABLET 1 TABLET PO (20:23)
[2022-07-18] MEDS: lamoTRIgine 100 MG TABLET 200 MG PO (20:23)
[2022-07-18] MEDS: MINERAL OIL/WHITE PETROLATUM OINTMENT 1 APPLIC EACH EYE (20:23)
[2022-07-18] MEDS: PANTOPRAZOLE SODIUM IV 40 MG VIAL IV PUSH (20:24)
[2022-07-18] MEDS: AMIODARONE 360 MG/D5W 200 ML 360 MG/200 ML BAG 16.67 MG IV CONT (23:19)
[2022-07-18 23:29] LABS: Glucose Point of Care 125 mg/dl (65-105)
[2022-07-19] VITALS (42 sets, daily range): BP systolic 95–140; BP diastolic 42–91; PULSE 58–78; RESP 12–24; TEMP 37.3–37.9; O2SAT 97–100
[2022-07-19] MEDS: SODIUM CHLORIDE 0.9% IV 250 ML 30 ML IV CONT (00:13)
[2022-07-19] MEDS: PROPOFOL IV EMULSION 100 ML 18.53 MG IV CONT ×2 (01:36→06:47)
[2022-07-19] MEDS: NOREPINEPHRINE 8 MG/D5W 250 ML 8 MG/250 ML BAG 5.63 MG IV CONT (01:38)
[2022-07-19] MEDS: DEXTROSE 5%/0.45% SOD CHL 1,000 ML 100 ML IV CONT (02:50)
[2022-07-19 03:44] LABS: Basophils Percent Auto 0.3 % (0.2-1.2); Eosinophils Absolute Auto 0.1 K/mm3 (0-0.3); Eosinophils Percent Auto 1.3 % (0-4.4); Hematocrit 22.9 % (42.0-52.0); Hemoglobin 7.6 g/dL (14.0-18.0); Immature Granulocyte Absolute 0.04 K/mm3 (0.00-0.031); Immature Granulocyte Percent A 0.6 % (0-0.5); Lymphocytes Absolute Auto 0.75 K/mm3 (0.9-3.2); Lymphocytes Percent Auto 10.6 % (18.3-44.2); Mean Corpuscular HGB Conc 33.2 g/dl (32-36); Mean Corpuscular Volume 99.6 fl (80-100); Mean Platelet Volume 10.5 fl (7.4-10.4); Monocytes Percent Auto 13.9 % (2.6-8.5); Neutrophils Absolute Auto 5.2 K/mm3 (1.3-6.7); Neutrophils Percent Auto 73.3 % (45.5-73.1); Platelet Count Result 186 k/mm3 (150-375); Red Cell Distribution Width 14.9 % (11.5-14.5); White Blood Count 7.1 K/mm3 (4.5-10.0)
[2022-07-19 03:54] LABS: INR 1.4; Prothrombin Time 16.8 Seconds (11.1-14.7)
[2022-07-19 04:55] LABS: Alanine Aminotransferase 34 U/L (6-50); Albumin Level 3.2 g/dL (3.5-5.1); Alkaline Phosphatase 64 U/L (38-126); Anion Gap 7 mmol/L (8-16); Aspartate Amino Transferase 138 U/L (17-59); Blood Urea Nitrogen 44 mg/dL (9-20); Calcium 7.4 mg/dL (8.4-10.2); Carbon Dioxide 28 mmol/L (22-30); Chloride 112 mmol/L (98-107); Estimated CRCL calculation 40 ml/min; Estimated Glomerular Filt Rate 49; Glucose 150 mg/dL (65-110); Potassium 3.2 mmol/L (3.4-5.0); Sodium 147 mmol/L (137-145)
[2022-07-19 05:42] LABS: Alveolar/Arterial O2 Gradient 145.5 mmHg; Base Excess ABG 5.3 mEq/l (+/-2.0); Carboxyhemoglobin 0.1 % THb (0-2.0); Fractional Inspired Oxygen 40 %; HCO3 ABG 29.2 mEq/l (22.0-26.0); Methemoglobin ABG 0.2 %THb (0-1.5); Oxygen Content ABG 14.1 %vol (16.0-22.0); Oxygen Saturation ABG 97.6 % (95.0-100.0); Oxyhemoglobin 95.8 % THb (90.0-100.0); PCO2 ABG 39.8 mmHg (35.0-45.0); PO2 ABG 93.9 mmHg (80.0-100.0); PO2 FiO2 Ratio Arterial Blood 2.35 %; Reduced Hemoglobin 3.9 %THb (0-5.0); Total Hemoglobin 10.4 g/dL (12.0-18.0); pH ABG 7.483 (7.350-7.450)
[2022-07-19 05:44] LABS: Arterial Blood Gas PEEP 5 cmH2O; Arterial Blood Gas Tidal Volume 350 ml; Arterial Blood Gas Vent Mode CMV; Arterial Blood Gas Ventilator rate 22 /MIN; Device VENTILATOR; Modified Allen's Test Pass; Site Drawn LEFT RADIAL
[2022-07-19] MEDS: CENTRAL LINE FLUSH 10 ML IV PUSH ×3 (06:05→21:04)
[2022-07-19] MEDS: POTASSIUM CHLORIDE 20 MEQ PACKET (FOR LIQUID) 40 MEQ FEED TUBE (09:03)
[2022-07-19] MEDS: KCL 40 MEQ/WATER 100 ML 100 ML 25 ML IVPB (09:04)
[2022-07-19] MEDS: KCL 20 MEQ/D5/0.45% SOD CHL 1,000 ML 100 ML IV CONT ×3 (09:04→19:15)
[2022-07-19] MEDS: PANTOPRAZOLE SODIUM IV 40 MG VIAL IV PUSH ×2 (09:04→21:03)
[2022-07-19] MEDS: ATORVASTATIN 20 MG TABLET PO (09:05)
[2022-07-19] MEDS: METOPROLOL TARTRATE 25 MG TABLET PO (09:05)
[2022-07-19] MEDS: MINERAL OIL/WHITE PETROLATUM OINTMENT 1 APPLIC EACH EYE ×2 (09:12→21:04)
[2022-07-19] MEDS: AMIODARONE 360 MG/D5W 200 ML 360 MG/200 ML BAG 16.67 MG IV CONT ×2 (09:36→21:16)
--- NOTE | 2022-07-19 09:40 | PM.PNCARD ---
Progress Note: A&P Assessment and Plan (1) Acute coronary syndrome: Code(s): I24.9 - Acute ischemic heart disease, unspecified Status: Acute (2) Cardiac arrest: Code(s): I46.9 - Cardiac arrest, cause unspecified Status: Acute (3) Hemopericardium: Code(s): I31.2 - Hemopericardium, not elsewhere classified Status: Acute (4) Atrial fibrillation: Code(s): I48.91 - Unspecified atrial fibrillation Status: Acute Plan Acute coronary syndrome with peak troponin of 11.1 and EKG showing ischemic changes. Had brief episode of atrial fibrillation. Patient was started on Heparin drip, loaded with ASA 324mg and Plavix 300mg, along with beta-ivis at that time. He had a very small hemopericardium likely the result from CPR. Repeat limited echo done 07/16 to make sure his effusion did not worsen with Heparin and DAPT, and it has remained stable. Cardiac cath done 07/18 which showed significant obstructive mid RCA disease (which likely was the culprit), concern that his ostial-proximal RCA disease may be significant as well. There is possible ostial left main disease which will need further evaluation. There is also moderate mid LAD disease and mild-moderate disease of LCX/OM system. Discussed case with Dr. Garcia regarding PCI, who has accepted patient at [facility]. Patient placed on transfer list to [facility]. Shortly after returning to the ICU on 07/18, patient became even more agitated. Head CT was obtained which was negative for acute findings. ICU team was prepping to intubate the patient, however, then NORA CRUZ was called. On telemetry, patient had brief SVT that had converted to sinus, however, then he went into VTACH which appears to have degenerated into VFIB. ACLS performed for a few minutes with ROSC. EKG after ROSC showing sinus rhythm with PACS. Patient then went into AFIB with RVR which converted to sinus after receiving Amiodarone. CT scan done 07/18 16:50 which shows: 1. New hypodense masses of the left hepatic lobe which are not well characterized due to lack of contrast. Differential diagnosis includes infection/abscess formation and hemorrhage. Recommend correlation with contrast-enhanced CT abdomen and pelvis. 2:? High density fluid in the pleural space, pericardial space, abdomen and pelvis, suspicious for hemorrhage of uncertain origin. Hgb 6.5 yesterday afternoon, given blood transfusions. Heparin and DAPT stopped. Hgb at 7.6 this AM. Given this, PCI will need to be deferred until his Hgb stabilizes, has no bleeding issues and can tolerate Heparin and DAPT. Echo 07/13: 1. Left ventricular size with [id number] concentric left ventricular hypertrophy.? Left ventricular systolic function of the lower limit of normal, calculated 48% ejection fraction, visually appears more in the 50-55% range. No segmental wall motion abnormalities.? Grade 1 diastolic dysfunction is present. 2. Left atrial chamber dimension is mildly enlarged. 3. There is trivial pericardial effusion. 4. No significant valve disease. 5. Normal sinus rhythm. Echo 07/15: 1. Left ventricular chamber dimension is normal. 2. Left ventricular systolic function is normal, estimated at 60-65%. 3. There is no increased left ventricular wall thickness. 4. The apical inferior wall, basal inferolateral wall, and mid inferolateral wall are hypokinetic. 5. There is small pericardial effusion. Echo 07/16: ?1. This was a limited study done to evaluate pericardial effusion. ?2. There is small pericardial effusion. Unchanged compared to prior study. 3. Left pleural effusion is seen. Subjective Date/time seen: 07/19/22 09:40 Interval history: Reason for visit: Cardiac arrest, Acute coronary syndrome Interval history: 76-year-old who had bradycardia and arrest in OR suite during hernia surgery.? Date of service 07/14/2022:? No significant bradycardia overnight.? He is awake alert denies any chest
--- NOTE | 2022-07-19 10:30 | WPDINTPN ---
Progress Note: A&P Assessment and Plan (1) Cardiac arrest: Code(s): I46.9 - Cardiac arrest, cause unspecified Status: Acute Assessment and Plan: Patient initially had a cardiac arrest during his laparoscopic hernia repair. CT was negative for PE but did show small hydropneumothorax which later resolved He had hemoperitoneum and hemopericardium. Repeated echoes did not show any significant increase in pericardial fluid Later in the ICU patient had elevated troponin EKG changes He had cardiac catheterization done which showed complicated RCA lesion for which patient is awaiting transfer to [facility] Yesterday patient had SVT which quickly converted to V-tach and patient required 1 DC shock following which patient went into asystole. He received CPR 2 dose of epinephrine before ROSC was obtained Patient does have ischemic coronary disease and needs PCI Due to CPR he has had bleeding a different site which is being managed transfusion of PRBC FFP and holding antiplatelet and anticoagulation (2) Acute coronary syndrome: Code(s): I24.9 - Acute ischemic heart disease, unspecified Status: Acute Assessment and Plan: Patient had acute coronary syndrome and had cardiac catheterization done on 07/18 Which showed Right coronary artery: The RCA is the dominant vessel. The ostial-proximal RCA is diseased. The mid RCA is ectatic with a focal 80% stenosis followed distally by a focal 70% stenosis. The distal RCA has mild diffuse disease Patient awaits transfer to [facility] for high-risk PCI Currently not on any antiplatelet therapy due to bleeding Continue beta-ivis and statin I suspect PCL be delayed until his hemoglobin stabilized (3) Congestive heart failure: Code(s): I50.9 - Heart failure, unspecified Status: Acute Assessment and Plan: Echo reviewed Lasix on hold (4) Acute respiratory failure: Code(s): J96.00 - Acute respiratory failure, unspecified whether with hypoxia or hypercapnia Status: Acute Assessment and Plan: Acute respiratory failure secondary to cardiac arrest Vent settings ABG and chest x-ray reviewed Patient not a candidate for weaning at this time He is awaiting transfer to [facility] and needs PCI (5) Acute kidney injury: Code(s): N17.9 - Acute kidney failure, unspecified Status: Acute Assessment and Plan: Patient has had fluctuating creatinine level depending on his fluid status. His creatinine had improved with IV fluids earlier but has uptake after he was given diuretics. Creatinine stable over last 24 hours for cardiac arrest and intubation Continue cautious IV fluids (6) Recurrent incisional hernia: Code(s): K43.2 - Incisional hernia without obstruction or gangrene Status: Chronic Assessment and Plan: Status post laparoscopic repair Management per surgery Patient on tube feeds (7) Hyperglycemia: Code(s): R73.9 - Hyperglycemia, unspecified Status: Acute Assessment and Plan: Sliding scale insulin (8) Anemia: Code(s): D64.9 - Anemia, unspecified Status: Acute Assessment and Plan: Hemoglobin 6.5 yesterday and was given [address] scan showed hemorrhage in pleural pericardial and peritoneal space from CPR Patient also received FFP for coagulopathy Continue IV Protonix Monitor hemoglobin q.6 hours Transfuse if needed No anticoagulation or antiplatelet this time (9) Hemoperitoneum: Code(s): K66.1 - Hemoperitoneum Status: Acute Assessment and Plan: See above (10) Hemopericardium: Code(s): I31.2 - Hemopericardium, not elsewhere classified Status: Acute Assessment and Plan: See above (11) Delirium: Code(s): R41.0 - Disorientation, unspecified Status: Acute Assessment and Plan: Patient had difficult to manage postoperative delirium required Precedex infusion for multiple days an
[2022-07-19 11:37] LABS: Glucose Point of Care 101 mg/dl (65-105)
--- NOTE | 2022-07-19 11:41 | PCNFU ---
Nutrition Follow-Up Complete: Inadequate oral intake related to clear liquid status as evidenced by current diet order Goal: Advance to oral intake as medically able Limited progress, will continue current goal. Pt current nutrition is Vital AF 1.2 at 30 ml/hr. Nutrition recommendation: Goal rate at 50 at this time. Last recorded weight is 82.3 kg. Bowel Motility:No BM reported since admit, recommend starting laxative. Labs Reviewed: GFR 49,Cr 1.4,Glu 150, BUN 44, HCt 22.9,Hgb 7.6,Alb 3.2, Na 147 Meds Noted:Propofol, Zosyn, NovoLog,Lipitor, Lopressor Skin: WNL Additional Notes: Patient remains on mechanical vent and tube feedings of Vital AF 1.2 currently at 30 ml/hr, goal rate 50 ml/hr due to propofol infusion of 16.21 ml/hr providing an additional 428 kcals. Total kcal intake 1748 kcals/83 gms protein/892 ml water. Meeting 89% kcal needs and 89% protein needs. Once propofol infusion as been discontinued recommend tube feeding goal rate at 70 ml/hr. Monitoring diet advancement, intakes, labs, weights, plan of care every Monday and Monday. Follow up in ICU rounds and per policy.
--- NOTE | 2022-07-19 11:52 | PC.NURSE ---
Report given to Linda Rubio RN. Linda now assuming care of patient.
[2022-07-19] MEDS: PROPOFOL IV EMULSION 100 ML 13.9 MG IV CONT (12:51)
[2022-07-19 13:48] LABS: Hematocrit 22.9 % (42.0-52.0); Hemoglobin 7.4 g/dL (14.0-18.0)
--- NOTE | 2022-07-19 17:01 | PM.PNGS ---
Progress Note: A&P Assessment and Plan (1) Recurrent incisional hernia: Code(s): K43.2 - Incisional hernia without obstruction or gangrene Status: Chronic Assessment and Plan: repair intact both by CT scan and exam. Patient remains critically ill for those problems outlined below. Await transfer to [facility] for high risk coronary intervention. Continues off heparin drip which I agree with. (2) Acute coronary syndrome: Code(s): I24.9 - Acute ischemic heart disease, unspecified Status: Acute Assessment and Plan: Awaits transfer (3) Acute respiratory failure with hypoxia: Code(s): J96.01 - Acute respiratory failure with hypoxia Status: Acute Assessment and Plan: sedated on ventilator (4) Anemia: Code(s): D64.9 - Anemia, unspecified Status: Acute Assessment and Plan: did not have appropriate increase in H&H after 2 units packed cells yesterday but it did increase somewhat and has remained stable today. Continue to monitor although it does not appear that he is currently bleeding. CT findings yesterday most likely due to chest compressions and anticoagulation with anti thrombotic on board. (5) Cardiac arrest: Code(s): I46.9 - Cardiac arrest, cause unspecified Status: Acute Assessment and Plan: Immediately following surgery and again yesterday. Stable day today. Subjective Subjective Date/Time Seen: 07/19/22 17:01 Post Op day: #6 (Laparoscopic repair recurrent incisional hernia, cardiopulmonary resuscitation) Patient reports: other ( patient intubated and sedated.) Interval history: Levophed has been weaned to 2 mics. Patient has had a relatively quiet stable day. H&H from this morning to this afternoon is low but stable. Patient remains off heparin drip. Awaiting transfer to [facility] for high risk coronary intervention. Review of Systems Review of Systems: ROS unobtainable: Yes unobtainable due to endotracheal tube Exam Const: General: patient obtunded GI: Inspection: abdominal wall ecchymosis ( left flank, little change from yesterday), non-distended and incision ( Dry and healing well) GI Palp: Yes Soft to palpation Objective Data Vital Signs Vital Signs: Vital Signs - 24 hr 07/18/22 17:09 07/18/22 17:11 07/18/22 17:11 Temperature Pulse Rate 141 H 156 H 154 H Respiratory Rate Blood Pressure 104/70 104/70 Pulse Oximetry 100 Oxygen Delivery Mechanical Ventilation Fraction of Inspired Oxygen 40 07/18/22 17:22 07/18/22 17:40 07/18/22 17:15 Temperature 36.7 C Pulse Rate 129 H 127 H 137 H Respiratory Rate 21 H 24 H Blood Pressure 140/73 140/73 Pulse Oximetry 100 Oxygen Delivery Fraction of Inspired Oxygen 07/18/22 18:00 07/18/22 18:07 07/18/22 17:45 Temperature Pulse Rate 130 H 137 H 138 H Respiratory Rate 24 H 24 H Blood Pressure 144/84 H 123/75 Pulse Oximetry 94 Oxygen Delivery Fraction of Inspired Oxygen 07/18/22 18:00 07/18/22 17:39 07/18/22 18:23 Temperature 37.0 C 37.0 C Pulse Rate 137 H 138 H 132 H Respiratory Rate 24 H 26 H Blood Pressure 144/84 H 137/71 116/62 Pulse Oximetry 100 99 Oxygen Delivery Fraction of Inspired Oxygen 07/18/22 18:33 07/18/22 18:34 07/18/22 18:00 Temperature Pulse Rate 138 H 138 H 137 H Respiratory Rate 24 H Blood Pressure 138/75 Pulse Oximetry Oxygen Delivery Fraction of Inspired Oxygen 07/18/22 18:30 07/18/22 20:06 07/18/22 20:22 Temperature 37.5 C Pulse Rate 79 73 70 Respiratory Rate 22 H 22 H Blood Pressure 139/57 L Pulse Oximetry 100 Oxygen Delivery Fraction of Inspired Oxygen 07/18/22 20:22 07/18/22 20:37 07/18/22 20:22 Temperature 37.6 C Pulse Rate 70 74 74 Respiratory Rate 22 H 20 Blood Pressure 120/55 L Pulse Oximetry 100 Oxygen Delivery Fraction of Inspired Oxygen 07/18/22 21:22 07/18/22 20:
[2022-07-19 17:27] LABS: Glucose Point of Care 132 mg/dl (65-105)
[2022-07-19 18:30] LABS: Hematocrit 23.4 % (42.0-52.0); Hemoglobin 7.5 g/dL (14.0-18.0)
[2022-07-19 18:40] LABS: Anion Gap 3 mmol/L (8-16); Blood Urea Nitrogen 37 mg/dL (9-20); Calcium 7.3 mg/dL (8.4-10.2); Carbon Dioxide 26 mmol/L (22-30); Chloride 112 mmol/L (98-107); Estimated CRCL calculation 43 ml/min; Estimated Glomerular Filt Rate 54; Glucose 155 mg/dL (65-110); Potassium 3.9 mmol/L (3.4-5.0); Sodium 141 mmol/L (137-145)
[2022-07-19] MEDS: PROPOFOL IV EMULSION 100 ML 16.21 MG IV CONT (19:14)
[2022-07-19] MEDS: lamoTRIgine 100 MG TABLET 200 MG PO (21:03)
[2022-07-20] VITALS (32 sets, daily range): BP systolic 111–138; BP diastolic 45–71; PULSE 59–96; RESP 19–29; TEMP 37.3–38.2; O2SAT 97–100
[2022-07-20 00:06] LABS: Glucose Point of Care 88 mg/dl (65-105)
[2022-07-20 00:30] LABS: Hematocrit 23.9 % (42.0-52.0); Hemoglobin 7.7 g/dL (14.0-18.0)
[2022-07-20] MEDS: PROPOFOL IV EMULSION 100 ML 18.53 MG IV CONT ×3 (01:30→09:43)
[2022-07-20 04:52] LABS: Hematocrit 22.3 % (42.0-52.0); Hemoglobin 7.2 g/dL (14.0-18.0); Mean Corpuscular HGB Conc 32.3 g/dl (32-36); Mean Corpuscular Hemoglobin 33.2 pg (26-34); Mean Corpuscular Volume 102.8 fl (80-100); Mean Platelet Volume 10.5 fl (7.4-10.4); Platelet Count Result 168 k/mm3 (150-375); Red Blood Count 2.17 M/mm3 (4.6-6.20); Red Cell Distribution Width 15.4 % (11.5-14.5)
[2022-07-20 04:53] LABS: Alanine Aminotransferase 87 U/L (6-50); Albumin Level 2.9 g/dL (3.5-5.1); Alkaline Phosphatase 74 U/L (38-126); Anion Gap 6 mmol/L (8-16); Aspartate Amino Transferase 60 U/L (17-59); Bilirubin,Total 0.9 mg/dL (0.2-1.3); Blood Urea Nitrogen 35 mg/dL (9-20); Calcium 7.2 mg/dL (8.4-10.2); Carbon Dioxide 26 mmol/L (22-30); Chloride 113 mmol/L (98-107); Estimated CRCL calculation 40 ml/min; Estimated Glomerular Filt Rate 49; Glucose 151 mg/dL (65-110); Magnesium 2.8 mg/dL (1.6-2.3); Phosphorus 3.2 mg/dL (2.5-4.5); Sodium 145 mmol/L (137-145)
[2022-07-20 05:14] LABS: Alveolar/Arterial O2 Gradient 155.6 mmHg; Base Excess ABG 0.4 mEq/l (+/-2.0); Carboxyhemoglobin 0.2 % THb (0-2.0); Device VENTILATOR; Fractional Inspired Oxygen 40 %; HCO3 ABG 24.6 mEq/l (22.0-26.0); Methemoglobin ABG 0.4 %THb (0-1.5); Modified Allen's Test Pass; Oxygen Content ABG 11.6 %vol (16.0-22.0); Oxygen Saturation ABG 96.8 % (95.0-100.0); Oxyhemoglobin 94.8 % THb (90.0-100.0); PCO2 ABG 37.9 mmHg (35.0-45.0); PO2 FiO2 Ratio Arterial Blood 2.15 %; Reduced Hemoglobin 4.6 %THb (0-5.0); Site Drawn LEFT RADIAL; Total Hemoglobin 8.6 g/dL (12.0-18.0); pH ABG 7.431 (7.350-7.450)
[2022-07-20 05:15] LABS: Arterial Blood Gas PEEP 5 cmH2O; Arterial Blood Gas Tidal Volume 350 ml; Arterial Blood Gas Vent Mode CMV; Arterial Blood Gas Ventilator rate 18 /MIN
[2022-07-20] MEDS: CENTRAL LINE FLUSH 10 ML IV PUSH ×2 (05:43→12:09)
[2022-07-20] MEDS: KCL 20 MEQ/D5/0.45% SOD CHL 1,000 ML 100 ML IV CONT (05:44)
[2022-07-20] MEDS: SODIUM CHLORIDE 0.9% IV 250 ML 30 ML IV CONT (09:00)
[2022-07-20] MEDS: MINERAL OIL/WHITE PETROLATUM OINTMENT 1 APPLIC EACH EYE (09:18)
[2022-07-20] MEDS: PANTOPRAZOLE SODIUM IV 40 MG VIAL IV PUSH (09:19)
[2022-07-20] MEDS: ATORVASTATIN 20 MG TABLET PO (09:19)
[2022-07-20] MEDS: METOPROLOL TARTRATE 25 MG TABLET PO (09:19)
[2022-07-20] MEDS: AMIODARONE 360 MG/D5W 200 ML 360 MG/200 ML BAG 16.67 MG IV CONT (09:42)
--- NOTE | 2022-07-20 11:31 | PM.PNCARD ---
Progress Note: A&P Assessment and Plan (1) Acute coronary syndrome: Code(s): I24.9 - Acute ischemic heart disease, unspecified Status: Acute (2) Cardiac arrest: Code(s): I46.9 - Cardiac arrest, cause unspecified Status: Acute (3) Hemopericardium: Code(s): I31.2 - Hemopericardium, not elsewhere classified Status: Acute (4) Atrial fibrillation: Code(s): I48.91 - Unspecified atrial fibrillation Status: Acute Plan Acute coronary syndrome with peak troponin of 11.1 and EKG showing ischemic changes. Had brief episode of atrial fibrillation. Patient was started on Heparin drip, loaded with ASA 324mg and Plavix 300mg, along with beta-ivis at that time. He had a very small hemopericardium likely the result from CPR. Repeat limited echo done 07/16 to make sure his effusion did not worsen with Heparin and DAPT, and it has remained stable. Cardiac cath done 07/18 which showed significant obstructive mid RCA disease (which likely was the culprit), concern that his ostial-proximal RCA disease may be significant as well. There is possible ostial left main disease which will need further evaluation. There is also moderate mid LAD disease and mild-moderate disease of LCX/OM system. Discussed case with Dr. Garcia regarding possible high-risk PCI for his RCA along with evaluation of his LM, who has accepted patient at [facility]. Patient placed on transfer list to [facility]. Shortly after returning to the ICU on 07/18, patient became even more agitated. Head CT was obtained which was negative for acute findings. ICU team was prepping to intubate the patient, however, then NORA CRUZ was called. On telemetry, patient had brief SVT that had converted to sinus, however, then he went into VTACH which appears to have degenerated into VFIB. ACLS performed for a few minutes with ROSC. EKG after ROSC showing sinus rhythm with PACS. Patient then went into AFIB with RVR which converted to sinus after receiving Amiodarone. CT scan done 07/18 16:50 which shows: 1. New hypodense masses of the left hepatic lobe which are not well characterized due to lack of contrast. Differential diagnosis includes infection/abscess formation and hemorrhage. Recommend correlation with contrast-enhanced CT abdomen and pelvis. 2:? High density fluid in the pleural space, pericardial space, abdomen and pelvis, suspicious for hemorrhage of uncertain origin. Hgb 6.5 07/18, given blood transfusions. Heparin and DAPT stopped. Hgb stable in the 7s now.. Given this, PCI will need to be deferred until his Hgb stabilizes, has no bleeding issues and can tolerate Heparin and DAPT. Echo 07/13: 1. Left ventricular size with [id number] concentric left ventricular hypertrophy.? Left ventricular systolic function of the lower limit of normal, calculated 48% ejection fraction, visually appears more in the 50-55% range. No segmental wall motion abnormalities.? Grade 1 diastolic dysfunction is present. 2. Left atrial chamber dimension is mildly enlarged. 3. There is trivial pericardial effusion. 4. No significant valve disease. 5. Normal sinus rhythm. Echo 07/15: 1. Left ventricular chamber dimension is normal. 2. Left ventricular systolic function is normal, estimated at 60-65%. 3. There is no increased left ventricular wall thickness. 4. The apical inferior wall, basal inferolateral wall, and mid inferolateral wall are hypokinetic. 5. There is small pericardial effusion. Echo 07/16: ?1. This was a limited study done to evaluate pericardial effusion. ?2. There is small pericardial effusion. Unchanged compared to prior study. 3. Left pleural effusion is seen. Subjective Date/time seen: 07/20/22 11:31 Interval history: Reason for visit: Cardiac arrest, Acute coronary syndrome Interval history: 76-year-old who had bradycardia and arrest in OR suite during hernia surgery.? Date of service 07/14/2022:? No significant
--- NOTE | 2022-07-20 11:37 | PCFNICU ---
ICU Rounding Note: Pt current nutrition is Vital AF 1.2 at 65 ml/hr. Last recorded weight is 93.2 kg. Bowel Motility:No BM reported, plans for suppository today. Labs Reviewed:Glu 151, BUN 35, Cr 1.4,Alb 2.9,Hct 22.3,Hgb 7.2 Meds Noted: Propofol, Zosyn, NovoLog,Lipitor, Lopressor Skin: WNL Additional Notes: Patient remains on tube feedings of Vital AF 1.2 at 65 ml/hr and tolerating. Propofol infusion coming down, currently at 16.21 ml/pd=915 kcals. Flush 30 ml q 4 hours. Patient getting 1 unit of blood today. Agree with diet orders. Following daily in ICU rounds. Monitoring diet advancement, intakes, labs, weights, plan of care every Monday and Monday.
--- NOTE | 2022-07-20 11:56 | WPDINTPN ---
Progress Note: A&P Assessment and Plan (1) Cardiac arrest: Code(s): I46.9 - Cardiac arrest, cause unspecified Status: Acute Assessment and Plan: 07/13/2022 Patient initially had a cardiac arrest during his laparoscopic hernia repair. CT was negative for PE but did show small hydropneumothorax which later resolved -He had hemoperitoneum and hemopericardium. Repeated echoes did not show any significant increase in pericardial fluid -Later in the ICU patient had elevated troponin EKG changes -07/18/2022: He had cardiac catheterization done which showed complicated RCA lesion for which patient is awaiting transfer to [facility] 07/18: Post cardiac catheterization patient had SVT which quickly converted to V-tach and patient required 1 DC shock following which patient went into asystole. He received CPR, 2 dose of epinephrine before ROSC was obtained -Patient does have ischemic coronary disease and needs high risk PCI Due to CPR he has had bleeding a different site which is being managed transfusion of PRBC, FFP and holding antiplatelet and anticoagulation (2) Acute coronary syndrome: Code(s): I24.9 - Acute ischemic heart disease, unspecified Status: Acute Assessment and Plan: Patient had acute coronary syndrome and had cardiac catheterization done on 07/18 Which showed Right coronary artery: The RCA is the dominant vessel. The ostial-proximal RCA is diseased. The mid RCA is ectatic with a focal 80% stenosis followed distally by a focal 70% stenosis. The distal RCA has mild diffuse disease Patient awaits transfer to [facility] for high-risk PCI Currently not on any antiplatelet therapy due to bleeding Continue beta-ivis and statin I suspect PCI will be delayed until his hemoglobin stabilized (3) Congestive heart failure: Code(s): I50.9 - Heart failure, unspecified Status: Acute Assessment and Plan: 07/13/2022: Echocardiogram showed EF of 50-55 %, grade 1 diastolic dysfunction, concentric LVH, LA chamber mildly enlarged, trivial pericardial effusion. No significant valve disease. Limited echoes were done on 07/15/2022 and 07/16/2022 origin down show any change -currently holding Lasix as patient was on a Levophed which is came of cath laboratory technician on 07/20 (4) Acute respiratory failure: Code(s): J96.00 - Acute respiratory failure, unspecified whether with hypoxia or hypercapnia Status: Acute Assessment and Plan: Acute respiratory failure secondary to cardiac arrest Vent settings ABG and chest x-ray reviewed Patient not a candidate for weaning at this time He is awaiting transfer to [facility] and needs PCI (5) Acute kidney injury: Code(s): N17.9 - Acute kidney failure, unspecified Status: Acute Assessment and Plan: Patient has had fluctuating creatinine level depending on his fluid status. His creatinine had improved with IV fluids earlier but has uptake after he was given diuretics. Creatinine stable over last 24 hours for cardiac arrest and intubation Continue cautious IV fluids (6) Recurrent incisional hernia: Code(s): K43.2 - Incisional hernia without obstruction or gangrene Status: Chronic Assessment and Plan: Status post laparoscopic repair Management per surgery Patient on tube feeds (7) Hyperglycemia: Code(s): R73.9 - Hyperglycemia, unspecified Status: Acute Assessment and Plan: Sliding scale insulin and Accu-Cheks (8) Anemia: Code(s): D64.9 - Anemia, unspecified Status: Acute Assessment and Plan: Hemoglobin 6.5 (07/18) and was given [address] scan showed hemorrhage in pleural pericardial and peritoneal space from CPR Patient also received FFP for coagulopathy Continue IV Protonix Monitor hemoglobin q.6 hours 07/20: Hemoglobin 7.2, given coronary artery disease, will transfuse 1 unit of packed RBCs, will maintain hemoglobin levels greater than 8.0 pe
[2022-07-20] MEDS: polyethylene glycoL 3350 17 GM POWD.PACK FEED TUBE (12:08)
[2022-07-20 13:00] LABS: Glucose Point of Care 102 mg/dl (65-105)
--- NOTE | 2022-07-20 15:32 | PM.PNGS ---
Progress Note: A&P Assessment and Plan (1) Recurrent incisional hernia: Code(s): K43.2 - Incisional hernia without obstruction or gangrene Status: Chronic Assessment and Plan: Repair intact both by CT scan and exam. Incisions healing well. He has not had a bowel movement in at least a week and currently has tube feeding running at goal rate. Will try to gently stimulate his bowels with Miralax. Patient remains critically ill for those problems outlined below. Await transfer to [facility] for high risk coronary intervention. (2) Acute coronary syndrome: Code(s): I24.9 - Acute ischemic heart disease, unspecified Status: Acute Assessment and Plan: Awaiting transfer as mentioned above. (3) Acute respiratory failure with hypoxia: Code(s): J96.01 - Acute respiratory failure with hypoxia Status: Acute Assessment and Plan: On ventilator, wean vent as tolerated per Code Enforcement Officer. (4) Anemia: Code(s): D64.9 - Anemia, unspecified Status: Acute Assessment and Plan: Hemoglobin remained low but stable this morning at 7.2. He was transfused with another unit of PRBCs this morning with a goal of hemoglobin greater than 8.0 due to his coronary artery disease. Continue to monitor labs. Does not appear to be actively bleeding. Levophed weaned off this morning. (5) Cardiac arrest: Code(s): I46.9 - Cardiac arrest, cause unspecified Status: Acute Assessment and Plan: Immediately following surgery and again 07/18/22. Remains stable today awaiting transfer. Plan I have discussed the patient's case and plan of care with Dr. Bernal. Subjective Subjective Date/Time Seen: 07/20/22 10:52 Post Op day: 7 (Laparoscopic repair recurrent incisional hernia, cardiopulmonary resuscitation) Interval history: Patient intubated and sedated in the ICU. Levophed weaned off earlier this morning and blood pressure was stable but low when examined this morning. No acute events overnight. Hgb remained stable last night and this morning but still low at 7.2. He was receiving 1 unit of PRBCs as well with the nurse at the bedside. Nursing reports he is having slightly high residual of about 250 cc this morning but tube feeding is still going at goal rate. He has not had a BM since admission per nursing and review of the electronic record. Patient remains off heparin drip.? Awaiting transfer to [facility] for high risk coronary intervention. Review of Systems Review of Systems: ROS unobtainable: Yes unobtainable due to endotracheal tube Exam Const: General: ill appearing and patient obtunded GI: Inspection: abdominal wall ecchymosis (left flank area, unchanged), incision ( Dry and healing well) and other (mildly distended) GI Palp: Yes Soft to palpation Auscultation: Hypoactive bowel sounds present Objective Data Vital Signs Vital Signs: Vital Signs - 24 hr 07/19/22 16:00 07/19/22 16:00 07/19/22 17:35 Temperature 99.6 F Pulse Rate 61 62 58 L Respiratory Rate 20 Blood Pressure 113/47 L Pulse Oximetry 98 97 Oxygen Delivery Mechanical Ventilation Fraction of Inspired Oxygen 40 07/19/22 18:00 07/19/22 18:00 07/19/22 19:13 Temperature 99.2 F Pulse Rate 61 60 63 Respiratory Rate 19 20 Blood Pressure 116/50 L Pulse Oximetry 98 Oxygen Delivery Fraction of Inspired Oxygen 07/19/22 19:14 07/19/22 19:59 07/19/22 20:00 Temperature 99.4 F Pulse Rate 63 61 60 Respiratory Rate 20 20 Blood Pressure 110/51 L Pulse Oximetry 98 Oxygen Delivery Fraction of Inspired Oxygen 07/19/22 20:00 07/19/22 20:23 07/19/22 21:04 Temperature Pulse Rate 62 64 60 Respiratory Rate 20 Blood Pressure Pulse Oximetry 99 99 Oxygen Delivery Mechanical Ventilation Mechanical Ventilation Fraction of Inspired Oxygen 40 40 07/19/22 21:16 07/19/22 21:16 07/19/22 22:00 Temperature Pulse Rate 60 60 65 Respi
--- NOTE | 2022-07-20 16:00 | PM.TDS ---
Transfer Discharge Sum: Prov Provider Date of admission: 07/13/22 11:49 Primary care physician: Valente Lopez MD Admitting clinician: Michael Bernal MD Consults: 07/13/22 Consult to Physician Routine Comment: Consulting Provider: Scott Rider Reason for consultation: icu admission Has provider been notified: Yes Consult to Physician Routine Comment: Consulting Provider: Suzanna Liao inbound call center agent/MD group to consult: Cardiology Reason for consultation: Cardiac arrest Has provider been notified: Yes 07/15/22 Consult to Physician Routine Comment: Consulting Provider: Nam Dominguez inbound call center agent/MD group to consult: gus Reason for consultation: medical management- change in condition Has provider been notified: Yes Attending physician on discharge: Scott Rider Discharging clinician: Rolando Martinez Anticipated date of transfer: 07/20/22 Receiving physician/facility: [facility] DS: Admitting Diagnosis Discharge Date 07/20/22 Admitting Diagnosis Cardiac arrest after hernia repair surgery DS: Discharge Diagnosis Discharge Diagnosis (1) Acute coronary syndrome: Code(s): I24.9 - Acute ischemic heart disease, unspecified Status: Acute (2) Acute respiratory failure with hypoxia: Code(s): J96.01 - Acute respiratory failure with hypoxia Status: Acute (3) Delirium: Code(s): R41.0 - Disorientation, unspecified Status: Acute (4) Atrial fibrillation: Code(s): I48.91 - Unspecified atrial fibrillation Status: Acute (5) Shock: Code(s): R57.9 - Shock, unspecified Status: Acute (6) Cardiac arrest: Code(s): I46.9 - Cardiac arrest, cause unspecified Status: Acute Transfer Discharge Sum: Med Medications Active and Home Medications: Home Medications lamotrigine 200 mg tablet 200 mg PO HS 08/12/19 [History Confirmed 07/13/22] escitalopram oxalate 5 mg tablet 5 mg PO QAM 08/31/20 [History Confirmed 07/13/22] mecobalamin (vitamin B12) 1,000 mcg chewable tablet 1,000 mcg PO DAILY 08/31/20 [History Confirmed 07/13/22] acetaminophen 500 mg tablet (Acetaminophen Extra Strength) 500 mg PO Q6H PRN Pain 12/26/20 [History Confirmed 07/14/22] ascorbate calcium (vitamin C) 500 mg tablet 1,000 mg PO DAILY 12/26/20 [History Confirmed 07/13/22] cholecalciferol (vitamin D3) 25 mcg (1,000 unit) chewable tablet (Vitamin D3) 25 mcg PO DAILY 12/26/20 [History Confirmed 07/13/22] Lactobacills gasseri-Bifidobac bifidum,longum 1.5 billion cell capsule ([facility]) 1 cap PO QAM 09/30/21 [History Confirmed 07/13/22] bupropion HCl 150 mg 24 hr tablet, extended release 150 mg PO QAM 09/30/21 [History Confirmed 07/13/22] buspirone 10 mg tablet 10 mg PO TID 09/30/21 [History Confirmed 07/13/22] montelukast 10 mg tablet 10 mg PO QHS 09/30/21 [History Confirmed 07/13/22] ropinirole 0.5 mg tablet 0.5 mg PO BID 09/30/21 [History Confirmed 07/13/22] carbidopa 25 mg-levodopa 100 mg tablet See Rx Instructions .Route .COMPLEX #30 tabs 06/25/22 [Rx Confirmed 07/13/22] hydrochlorothiazide 25 mg tablet 25 mg PO QAM 07/06/22 [History Confirmed 07/13/22] simvastatin 40 mg tablet See Rx Instructions .Route .COMPLEX #90 tabs 07/12/22 [Rx Confirmed 07/13/22] cyanocobalamin (vitamin B-12) 1,000 mcg tablet (Vitamin B-12) 1,000 mcg PO DAILY 07/14/22 [History Confirmed 07/14/22] Transfer Discharge Sum: Hosp Hospital Course Hospital course: Geovanny Cuevas is a 76 year old male who had cardiac arrest in the OR during hernia repair surgery. Found to have ACS. Acute coronary syndrome with peak troponin of 11.1 and EKG showing ischemic changes. Had brief episode of atrial fibrillation. Patient was started on Heparin drip, loaded with ASA 324mg and Plavix 300mg, along with beta-ivis at that time. He had a very small hemopericardium likely the result from CPR. Repeat limited echo done 07/16 to make sure his effusion did not worsen with Heparin and DAP
== END 2022-07-20 17:00 | disposition short-term general hospital (02) | DRG 335 ==
LOC: ANHICU 11:55
PROVIDERS: Internal Medicine; Internal Medicine Cardiovascular Disease; Physician Assistant; Admitting Provider Surgery; PCP Family Medicine; Visit Provider Internal Medicine
PROC: 0DNU4ZZ Release Omentum, Percutaneous Endoscopic Approach (ICD-10-PCS; principal; 2022-07-13 08:30)
PROC: 4A023N7 Measurement of Cardiac Sampling and Pressure, Left Heart, Percutaneous Approach (ICD-10-PCS; CPT 93452; principal; 2022-07-18 10:00)
DX: K43.2 Incisional hernia without obstruction or gangrene (principal); I21.4 Non-ST elevation (NSTEMI) myocardial infarction; J96.01 Acute respiratory failure with hypoxia; K66.1 Hemoperitoneum; I46.9 Cardiac arrest, cause unspecified; I31.2 Hemopericardium, not elsewhere classified; F33.9 Major depressive disorder, recurrent, unspecified; E87.20 Acidosis, unspecified; I97.711 Intraoperative cardiac arrest during other surgery; N17.9 Acute kidney failure, unspecified; M62.82 Rhabdomyolysis; I24.9 Acute ischemic heart disease, unspecified; R57.9 Shock, unspecified; I47.1 Supraventricular tachycardia; I11.0 Hypertensive heart disease with heart failure; I50.9 Heart failure, unspecified; K66.0 Peritoneal adhesions (postprocedural) (postinfection); I49.1 Atrial premature depolarization; I25.10 Atherosclerotic heart disease of native coronary artery without angina pectoris; I48.91 Unspecified atrial fibrillation; R41.0 Disorientation, unspecified; R79.1 Abnormal coagulation profile; E87.8 Other disorders of electrolyte and fluid balance, not elsewhere classified; D64.9 Anemia, unspecified; R73.01 Impaired fasting glucose; E78.5 Hyperlipidemia, unspecified; F41.1 Generalized anxiety disorder; M54.50 Low back pain, unspecified; G89.29 Other chronic pain; Z20.822 Contact with and (suspected) exposure to COVID-19; Z96.82 Presence of neurostimulator; Z98.1 Arthrodesis status; Z79.899 Other long term (current) drug therapy; Z87.891 Personal history of nicotine dependence; Z98.49 Cataract extraction status, unspecified eye; Z82.49 Family history of ischemic heart disease and other diseases of the circulatory system
CPT/HCPCS: 31500; 36415; 36430; 36569; 36600; 70450; 71045; 71275; 74018; 74176; 74177; 80048; 80053; 80061; 82140; 82375; 82550; 82570; 82805; 82948; 83036; 83050; 83605; 83735; 83880; 84100; 84300; 84443; 84484; 85014; 85018; 85025; 85027; 85384; 85610; 85730; 86850; 86900; 86901; 86920; 87040; 87086; 87636; 92950; 93005; 93308; 93458; 94002; 94003; 94640; A9270; C1751; C1769; C1781; C1887; C1894; C8929; C9113; J0171; J0282; J0461; J0690; J1100; J1170; J1630; J1644; J1885; J1940; J2060; J2250; J2270; J2370; J2405; J2543; J2704; J2710; J3010; J3475; J3480; J7030; J7040; J7050; J7120; P9016; P9017; P9047; Q9967